=== PATIENT | male | born 1950 | race Caucasian/White ===

== ENCOUNTER 2020-08-20 20:13 | Inpatient (IN) | payer MEDICARE, MEDICAID ==
[~2020-08-20] VITALS: Ht 170.2 cm; Wt 55.3 kg
--- NOTE | 2020-08-20 21:30 | NUR ---
Home: [id number] and Cell: [id number]. 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 Pt's also notified nurse of full bottom dentures. also stated that pt is RAMPART and hearing aides have been left at home.
[2020-08-20 22:11] LABS: BASOPHILS # (AUTO) 0.1 X10'3 (0-0.2); BASOPHILS % (AUTO) 0.5 % (0-1); EOSINOPHILS % (AUTO) 0.5 % (0-6); HEMOGLOBIN 14.5 g/dl (14.0-17.9); LYMPHOCYTES # (AUTO) 1.3 X10'3 (1.1-4.8); LYMPHOCYTES % (AUTO) 13.5 % (21-51); MEAN CORPUSCULAR HEMOGLOBIN 30.3 PG (27.0-31.0); MEAN CORPUSCULAR HGB CONC 33.8 g/dL (33.0-36.5); MEAN CORPUSCULAR VOLUME 89.5 FL (78-98); MEAN PLATELET VOLUME 8.8 FL (7.4-10.4); MONOCYTES # (AUTO) 0.8 X10'3 (0-0.9); MONOCYTES % (AUTO) 7.8 % (2-12); NEUTROPHILS # (AUTO) 7.6 X10'3 (1.8-7.7); NEUTROPHILS % (AUTO) 77.7 % (42-75); PLATELET COUNT 197 X10'3 (140-440); RED BLOOD COUNT 4.81 X10'6 (4.70-6.10); RED CELL DISTRIBUTION WIDTH 14.2 % (11.5-14.5); WHITE BLOOD COUNT 9.8 X10'3 (4.5-11.0)
--- NOTE | 2020-08-20 22:30 | NUR ---
updated on plan of care.
[2020-08-20 22:31] LABS: ALANINE AMINOTRANSFERASE 31 U/L (12-78); ALBUMIN 3.5 G/DL (3.4-5.0); ALBUMIN/GLOBULIN RATIO 1.2 (1.1-1.5); ALKALINE PHOSPHATASE 104 IU/L (46-116); ANION GAP 7 (8-16); ASPARTATE AMINO TRANSFERASE 23 U/L (10-37); BILIRUBIN,TOTAL 0.8 MG/DL (0.1-1.0); BLOOD UREA NITROGEN 13 MG/DL (7-18); BUN/CREATININE RATIO 18.1 (5.4-32.0); CALCIUM 8.8 MG/DL (8.5-10.1); CHLORIDE 109 MMOL/L (99-107); CREATININE 0.72 MG/DL (0.60-1.10); GLUCOSE 115 MG/DL (70-104); SODIUM 141 MMOL/L (135-145); TOTAL CARBON DIOXIDE 25.3 MMOL/L (24-32); TOTAL PROTEIN 6.5 G/DL (6.4-8.2); eGFR > 90 ML/MIN
[2020-08-20 22:33] LABS: POTASSIUM 4.2 MMOL/L (3.5-5.1)
[2020-08-20] MEDS ORDERED: OLAN15TA20 PO (23:17)
[2020-08-20] MEDS ORDERED: CLON-528 PO (23:17)
[2020-08-20] MEDS ORDERED: SERT-433 PO (23:17)
[2020-08-20] MEDS ORDERED: DONE5TAB7 PO (23:17)
[2020-08-20] MEDS ORDERED: OLAN5TAB26 PO (23:17)
[2020-08-20] MEDS ORDERED: OLANZAPINE 5 MG TABLET PO ONE (23:50)
--- NOTE | 2020-08-21 03:51 | NUR ---
Two staff nurses attempted to place condom cath on pt to collect urine sample. Pt suddenly became very agitated and started yell and twist/turn in bed. Procedure attempt was discontinued. Pt then soon calmed down. Will continue to monitor.
[2020-08-21] MEDS ORDERED: MIDAZolam 1mg/ml 10ml vial IM ONE (04:35)
[2020-08-21] MEDS ORDERED: midazolam 1 mg/ML 2ml injection IM ONE (04:35)
--- NOTE | 2020-08-21 04:44 | NUR ---
Pt was actively attempting to get out of bed. The first attempt nurse and nurse aide were able to redirect pt back to bed without issue. Heated blanket was given as well as additionally blankets. Soon after pt made another active attempt to get out of bed. Nurse rushed to bedside to prevent pt from getting out of bed. Pt then became combative with nurse with hitting and shoving. Nurse tech also came to bedside. Pt successfully got of bed and attempted to walk towards exit while still being combative. Security was called. Once security responded, pt was able to redirected back into bed though still agitated. MD was made aware of current status and ONE time dose of Versed has been ordered and administered. Pt now calmly resting in bed. Will continue to closely monitor.
--- NOTE | 2020-08-21 07:00 | NUR ---
Pt up to use the restroom. pt provided urine sample and had a bm. Pt ambulated independently with an unsteady gate. Pt required standby assistance to bathroom.
[2020-08-21 07:18] LABS: CLARITY,URINE CLOUDY (Clear); COLOR,URINE YELLOW (Yellow); GLUCOSE, URINE NEGATIVE (Neg); KETONES,URINE NEGATIVE (Neg); LEUKOCYTE ESTERASE ,URINE MODERATE (Neg); NITRITES, URINE NEGATIVE (Neg); OCCULT BLOOD,URINE LARGE (Neg); PROTEIN,URINE 30 mg/dl (Neg); UROBILINOGEN,URINE 0.2 E.U/dL (0.2-1.0)
[2020-08-21 07:19] LABS: URINE AMPHETAMINE SCREEN NEGATIVE (Neg); URINE BARBITUATE SCREEN NEGATIVE (Neg); URINE BENZODIAZEPINES SCREEN POSITIVE (Neg); URINE CANNABINOID SCREEN NEGATIVE (Neg); URINE COCAINE SCREEN NEGATIVE (Neg); URINE METHADONE SCREEN NEGATIVE (Neg); URINE OPIATE SCREEN NEGATIVE (Neg); URINE PHENCYCLIDINE SCREEN NEGATIVE (Neg)
[2020-08-21 07:24] LABS: UA COLLECTION TYPE CLN CATCH MIDSTREAM
[2020-08-21 07:25] LABS: AMORPHOUS URATES 3+; BACTERIA,URINE FEW /HPF (Neg); MUCUS STRANDS FEW /LPF (Neg); RBC,URINE TNTC /HPF (0-2); SQUAMOUS EPITHELIAL CELL,UR FEW /LPF (FEW); WBC,URINE TNTC /HPF (0-4)
[2020-08-21] MEDS: OLANZAPINE 5 MG TABLET PO SCH ×2 (07:46→21:58)
[2020-08-21] MEDS: clonazePAM 0.5mg tablet PO PRN (07:46)
[2020-08-21] MEDS: donepezil 5mg tablet PO SCH (07:46)
[2020-08-21] MEDS: sertraline 50mg tablet PO SCH (07:46)
--- NOTE | 2020-08-21 07:57 | NUR ---
pt off unit, taken to ct
--- NOTE | 2020-08-21 08:27 | NUR ---
Patricia robledo in [facility] - 08/21/20 at 0828 by TONJA pt is eating breakfast independento
--- NOTE | 2020-08-21 08:28 | NUR ---
pt is eating breakfast independently. Pt appears to be in no distress
[2020-08-21] MEDS ORDERED: CefTRIAXone/D5W-Rocephin 1gm 50 ML IV ONE (09:30)
--- NOTE | 2020-08-21 11:52 | NUR ---
Pt was given additional water and snacks, linen change after cleaning up the pt. pt was incontinent of urine. Pt settled in bed and is now sleeping.
--- NOTE | 2020-08-21 13:02 | NUR ---
Pt is resting in bed, no s/s of distress noted.
--- NOTE | 2020-08-21 15:51 | NUR ---
pt continues to rest, no s/s of distress noted. r/r unlabored
[2020-08-21] MEDS: cephalexin 250mg capsule PO SCH (22:00)
[2020-08-21] MEDS: lactobacillus rhamnosus 10,000 MMU CELLS/CAPSULE PO SCH (22:00)
[2020-08-22] MEDS: cephalexin 250mg capsule PO SCH ×2 (07:38→20:08)
[2020-08-22] MEDS: donepezil 5mg tablet PO SCH (07:39)
[2020-08-22] MEDS: sertraline 50mg tablet PO SCH (07:39)
[2020-08-22] MEDS: lactobacillus rhamnosus 10,000 MMU CELLS/CAPSULE PO SCH ×2 (07:39→20:08)
[2020-08-22] MEDS: OLANZAPINE 5 MG TABLET PO SCH ×2 (07:39→20:08)
[2020-08-22] MEDS: clonazePAM 0.5mg tablet PO PRN (08:48)
[2020-08-22] MEDS ORDERED: LORazepam 2 mg/ml vial IM ONE (08:55)
[2020-08-22] MEDS ORDERED: diphenhydrAMINE 50 mg/ml inj IM ONE (08:55)
[2020-08-22] MEDS ORDERED: haloperidol lactate 5mg/ml inj IM ONE ×2 (09:45→16:05)
--- NOTE | 2020-08-22 10:32 | NUR ---
Assumed care of patient at 0945 from Brendon CLAROS. Per RN, Pt has been aggitated and walked over to another patients room and started yelling and pointing fingers at them. Pt was given ativan and benedryl. Pt continues to be aggitated and continues to try to get out of bed. Order for Haldol was obtained and given. Pt is constantly moving around in bed and making random noises. Pt unable to communicate effectively with staff due to his dementia and huntingtons. Continue to monitor.
--- NOTE | 2020-08-22 12:36 | NUR ---
Spoke with case mgmt, they will call to provide resources to family.
[2020-08-22] MEDS ORDERED: acetaminophen 325mg tablet PO PRN (16:25)
[2020-08-22] MEDS ORDERED: ondansetron/PF 4mg/2ml inj IV PRN (16:25)
[2020-08-22] MEDS ORDERED: magnesium hydroxide 30ml (MOM) UD suspension PO PRN (16:25)
[2020-08-22] MEDS ORDERED: mag hydrox/Alum hydrox/simeth 30ml oral suspension PO PRN (16:25)
[2020-08-22] MEDS ORDERED: morphine 2 MG/ML inj. syringe IV PRN ×2 (16:25)
[2020-08-22] MEDS: normal saline 1000ml 1,000 ML IV SCH (19:00)
[2020-08-22] MEDS: CefTRIAXone/D5W-Rocephin 1gm 50 ML IV SCH (19:30)
--- NOTE | 2020-08-22 20:52 | NUR ---
PT SEEMS TO BE SLEEPING IN BED AT THIS MOMENT
--- NOTE | 2020-08-22 21:18 | NUR ---
BED ALARM PLACED ON PATIENT
[2020-08-23] MEDS: normal saline 1000ml 1,000 ML IV SCH ×2 (04:04→12:25)
--- NOTE | 2020-08-23 06:29 | NUR ---
PT WOKE UP AND GOT UP FROM BED WALKING TOWARDS THE DOOR AND PULLED HIS IV TUBING AND STARTED THE NEW IV FOR THE PT BY SUPERVISOR INSPECTION AND TESTINGHYACINTH YAO ,PT DIRECTED TO GO BACK TO BED DIAPER CHANGED ,BED ALARM STARTED.WILL CONT TO MONITOR.
[2020-08-23] MEDS: OLANZAPINE 5 MG TABLET PO SCH ×2 (08:33→20:18)
[2020-08-23] MEDS: sertraline 50mg tablet PO SCH (08:33)
[2020-08-23] MEDS: cephalexin 250mg capsule PO SCH ×2 (08:33→20:18)
[2020-08-23] MEDS: donepezil 5mg tablet PO SCH (08:33)
[2020-08-23] MEDS: lactobacillus rhamnosus 10,000 MMU CELLS/CAPSULE PO SCH ×2 (08:33→20:18)
[2020-08-23] MEDS: enoxaparin 40mg/0.4ml syringe SUBCUT SCH (08:33)
[2020-08-23] MEDS: CefTRIAXone/D5W-Rocephin 1gm 50 ML IV SCH (08:46)
[2020-08-23 08:52] LABS: BASOPHILS % (AUTO) 0.1 % (0-1); EOSINOPHILS % (AUTO) 0.5 % (0-6); HEMATOCRIT 45.5 % (42.0-52.0); HEMOGLOBIN 15.4 g/dl (14.0-17.9); LYMPHOCYTES % (AUTO) 11.5 % (21-51); MEAN CORPUSCULAR HEMOGLOBIN 30.6 PG (27.0-31.0); MEAN CORPUSCULAR HGB CONC 33.9 g/dL (33.0-36.5); MEAN CORPUSCULAR VOLUME 90.3 FL (78-98); MEAN PLATELET VOLUME 8.4 FL (7.4-10.4); MONOCYTES # (AUTO) 0.7 X10'3 (0-0.9); NEUTROPHILS # (AUTO) 6.7 X10'3 (1.8-7.7); NEUTROPHILS % (AUTO) 79.9 % (42-75); PLATELET COUNT 208 X10'3 (140-440); RED BLOOD COUNT 5.04 X10'6 (4.70-6.10); RED CELL DISTRIBUTION WIDTH 14.3 % (11.5-14.5); WHITE BLOOD COUNT 8.4 X10'3 (4.5-11.0)
[2020-08-23 09:02] LABS: ALANINE AMINOTRANSFERASE 31 U/L (12-78); ALBUMIN 3.5 G/DL (3.4-5.0); ALBUMIN/GLOBULIN RATIO 1.2 (1.1-1.5); ALKALINE PHOSPHATASE 97 IU/L (46-116); ANION GAP 8 (8-16); ASPARTATE AMINO TRANSFERASE 29 U/L (10-37); BILIRUBIN,TOTAL 0.8 MG/DL (0.1-1.0); BLOOD UREA NITROGEN 12 MG/DL (7-18); BUN/CREATININE RATIO 16.4 (5.4-32.0); CALCIUM 8.5 MG/DL (8.5-10.1); CHLORIDE 111 MMOL/L (99-107); CREATININE 0.73 MG/DL (0.60-1.10); GLUCOSE 90 MG/DL (70-104); POTASSIUM 4.5 MMOL/L (3.5-5.1); SODIUM 144 MMOL/L (135-145); TOTAL CARBON DIOXIDE 25.5 MMOL/L (24-32); TOTAL PROTEIN 6.4 G/DL (6.4-8.2); eGFR > 90 ML/MIN
--- NOTE | 2020-08-23 10:00 | NUR ---
INFORMED CHARGE NURSE SANDRO THAT WE NEED SITTER FOR THE PT PT WANDER AROUND IN THE HALLWAY.
--- NOTE | 2020-08-23 10:56 | NUR ---
REEMA MUNOZ SITTER DOING ONE TO ONE ON PT HELPED CHANGED THE PT ,PT HAD BM TWICE SINCE AM .PT IS DIRECTABLE BUT CONFUSED,LEAVE THE BED AND WANDER IN HALLWAY.
[2020-08-23] MEDS ORDERED: FLU VACC QS2020-21(6MOS UP)/PF 60 MCG/0.5 ML SYRINGE IMVAC ONE (11:10)
[2020-08-23] MEDS ORDERED: pneumococcal 23-VAL P-sac vacc 25 mcg/0.5ml vial IMVAC ONE (11:10)
--- NOTE | 2020-08-23 11:33 | NUR ---
spoke to valerie for giving report but nurse is not available at this time.
--- NOTE | 2020-08-23 12:02 | NUR ---
Received patient report via phone from Gael Hanley in [place]. She states patient has a sitter due to the fact patient gets up and wanders and pulled his IV out this morning. She will be calling me back to make sure that they will be sending up a sitter with patient.
--- NOTE | 2020-08-23 13:30 | NUR ---
Paged speach therapy to evaluate patient
--- NOTE | 2020-08-23 14:20 | NUR ---
Spoke with Vicky who states patient has not had his flu or pneumonia vaccine and she would like him to have them while he is here.
[2020-08-23] MEDS ORDERED: SULF1TAB49 PO (14:49)
[2020-08-23 14:50] VITALS: BP 144/47
--- NOTE | 2020-08-23 15:48 | NUR ---
Called and left message for regarding discharge on home number and cell phone of [phone]
--- NOTE | 2020-08-23 16:11 | NUR ---
Patients called back stated she can not come and case picker patient states she needs him to be placed. I advised patient the doctor has written a discharge and she would have to contact Medicare and appeal his discharge and if they deemed he was to be discharged she would be responsible for his stay. Patients wanted Raya / licensed social worker to call [facility] and fax information on patient so they could review his case on Sunday. I did advise Vicky the that since the patient came to the floor he has been in bed not wandering and ate his lunch and allowed me to give him both of his vaccinations. I handed the phone call over Loretta who spoke with the and is refusing to come and get patient. Raya with licensed social worker will call patients and try and give her the phone number for medicare appeals. Dr Dunham has been paged.
--- NOTE | 2020-08-23 16:24 | NUR ---
Dr Dunham aware patients is not coming to pick patient up.
--- NOTE | 2020-08-23 18:46 | NUR ---
Patient in room [facility]. I have received report from Vicky CLAROS and had the opportunity to ask questions and assume patient care.
--- NOTE | 2020-08-23 18:50 | NUR ---
Problems reprioritized. Patient report given, questions answered & plan of care reviewed with Jessica CLAROS.
[2020-08-23 19:49] VITALS: BP 159/51
[2020-08-23 19:50] VITALS: BP_SYST 109; BP_SYST 159; BP_DIAS 51; BP_DIAS 58
[2020-08-24 00:03] VITALS: BP 98/49
[2020-08-24] MEDS: normal saline 1000ml 1,000 ML IV SCH ×2 (00:23→08:25)
--- NOTE | 2020-08-24 06:49 | NUR ---
Problems reprioritized. Patient report given, questions answered & plan of care reviewed with Ana CLAROS.
--- NOTE | 2020-08-24 06:49 | NUR ---
Patient in room [facility]. I have received report from Adriana CLAROS and had the opportunity to ask questions and assume patient care.
[2020-08-24 07:13] LABS: BASOPHILS % (AUTO) 0.3 % (0-1); EOSINOPHILS # (AUTO) 0.1 X10'3 (0-0.9); EOSINOPHILS % (AUTO) 0.8 % (0-6); HEMATOCRIT 41.7 % (42.0-52.0); HEMOGLOBIN 14.1 g/dl (14.0-17.9); LYMPHOCYTES # (AUTO) 0.9 X10'3 (1.1-4.8); LYMPHOCYTES % (AUTO) 11.4 % (21-51); MEAN CORPUSCULAR HEMOGLOBIN 30.5 PG (27.0-31.0); MEAN CORPUSCULAR HGB CONC 33.9 g/dL (33.0-36.5); MEAN PLATELET VOLUME 9.4 FL (7.4-10.4); MONOCYTES # (AUTO) 0.8 X10'3 (0-0.9); NEUTROPHILS # (AUTO) 6.4 X10'3 (1.8-7.7); NEUTROPHILS % (AUTO) 77.5 % (42-75); PLATELET COUNT 196 X10'3 (140-440); RED BLOOD COUNT 4.64 X10'6 (4.70-6.10); WHITE BLOOD COUNT 8.3 X10'3 (4.5-11.0)
[2020-08-24 07:33] LABS: ALANINE AMINOTRANSFERASE 33 U/L (12-78); ALBUMIN 3.2 G/DL (3.4-5.0); ALBUMIN/GLOBULIN RATIO 1.1 (1.1-1.5); ALKALINE PHOSPHATASE 91 IU/L (46-116); ANION GAP 7 (8-16); ASPARTATE AMINO TRANSFERASE 25 U/L (10-37); BILIRUBIN,TOTAL 0.7 MG/DL (0.1-1.0); BLOOD UREA NITROGEN 11 MG/DL (7-18); BUN/CREATININE RATIO 16.7 (5.4-32.0); CALCIUM 8.4 MG/DL (8.5-10.1); CHLORIDE 112 MMOL/L (99-107); CREATININE 0.66 MG/DL (0.60-1.10); GLUCOSE 89 MG/DL (70-104); POTASSIUM 4.3 MMOL/L (3.5-5.1); SODIUM 144 MMOL/L (135-145); TOTAL CARBON DIOXIDE 25.5 MMOL/L (24-32); TOTAL PROTEIN 6.1 G/DL (6.4-8.2); eGFR > 90 ML/MIN
[2020-08-24 08:00] VITALS: BP 133/47
[2020-08-24] MEDS: lactobacillus rhamnosus 10,000 MMU CELLS/CAPSULE PO SCH ×2 (08:55→19:43)
[2020-08-24] MEDS: OLANZAPINE 5 MG TABLET PO SCH ×2 (08:55→19:43)
[2020-08-24] MEDS: cephalexin 250mg capsule PO SCH (08:55)
[2020-08-24] MEDS: CefTRIAXone/D5W-Rocephin 1gm 50 ML IV SCH (08:55)
[2020-08-24] MEDS: donepezil 5mg tablet PO SCH (08:55)
[2020-08-24] MEDS: sertraline 50mg tablet PO SCH (08:55)
[2020-08-24] MEDS: enoxaparin 40mg/0.4ml syringe SUBCUT SCH (08:56)
[2020-08-24 11:00] VITALS: BP 128/44
--- NOTE | 2020-08-24 18:36 | NUR ---
Patient in room [facility]. I have received report from Ana CLAROS and had the opportunity to ask questions and assume patient care.
--- NOTE | 2020-08-24 18:38 | NUR ---
Problems reprioritized. Patient report given, questions answered & plan of care reviewed with LUCILLE CLAROS.
[2020-08-24 20:00] VITALS: BP 142/58
--- NOTE | 2020-08-25 06:45 | NUR ---
Patient in room [facility]. I have received report from Adriana CLAROS and had the opportunity to ask questions and assume patient care.
--- NOTE | 2020-08-25 06:49 | NUR ---
Problems reprioritized. Patient report given, questions answered & plan of care reviewed with Heather CLAROS.
[2020-08-25 07:32] LABS: BASOPHILS % (AUTO) 0.4 % (0-1); EOSINOPHILS # (AUTO) 0.1 X10'3 (0-0.9); EOSINOPHILS % (AUTO) 1.3 % (0-6); HEMATOCRIT 41.6 % (42.0-52.0); HEMOGLOBIN 14.1 g/dl (14.0-17.9); LYMPHOCYTES % (AUTO) 14.3 % (21-51); MEAN CORPUSCULAR HEMOGLOBIN 30.4 PG (27.0-31.0); MEAN CORPUSCULAR VOLUME 89.4 FL (78-98); MEAN PLATELET VOLUME 8.9 FL (7.4-10.4); MONOCYTES # (AUTO) 0.7 X10'3 (0-0.9); NEUTROPHILS # (AUTO) 5.4 X10'3 (1.8-7.7); PLATELET COUNT 198 X10'3 (140-440); RED BLOOD COUNT 4.65 X10'6 (4.70-6.10); RED CELL DISTRIBUTION WIDTH 14.3 % (11.5-14.5); WHITE BLOOD COUNT 7.2 X10'3 (4.5-11.0)
[2020-08-25 08:00] VITALS: BP 111/49
[2020-08-25 08:05] LABS: ALANINE AMINOTRANSFERASE 30 U/L (12-78); ALBUMIN 3.2 G/DL (3.4-5.0); ALBUMIN/GLOBULIN RATIO 1.1 (1.1-1.5); ALKALINE PHOSPHATASE 91 IU/L (46-116); ANION GAP 9 (8-16); ASPARTATE AMINO TRANSFERASE 25 U/L (10-37); BILIRUBIN,TOTAL 0.9 MG/DL (0.1-1.0); BLOOD UREA NITROGEN 11 MG/DL (7-18); BUN/CREATININE RATIO 18.3 (5.4-32.0); CALCIUM 8.7 MG/DL (8.5-10.1); CHLORIDE 109 MMOL/L (99-107); GLUCOSE 90 MG/DL (70-104); POTASSIUM 4.2 MMOL/L (3.5-5.1); SODIUM 143 MMOL/L (135-145); TOTAL CARBON DIOXIDE 24.9 MMOL/L (24-32); TOTAL PROTEIN 6.2 G/DL (6.4-8.2); eGFR > 90 ML/MIN
[2020-08-25] MEDS: donepezil 5mg tablet PO SCH (08:22)
[2020-08-25] MEDS: OLANZAPINE 5 MG TABLET PO SCH ×2 (08:22→21:03)
[2020-08-25] MEDS: lactobacillus rhamnosus 10,000 MMU CELLS/CAPSULE PO SCH ×2 (08:22→21:03)
[2020-08-25] MEDS: sertraline 50mg tablet PO SCH (08:22)
[2020-08-25] MEDS: CefTRIAXone/D5W-Rocephin 1gm 50 ML IV SCH (08:23)
[2020-08-25] MEDS: enoxaparin 40mg/0.4ml syringe SUBCUT SCH (08:25)
[2020-08-25 12:00] VITALS: BP 148/57
--- NOTE | 2020-08-25 17:31 | NUR ---
spoke with pt's Vicky per phone call, update given.
--- NOTE | 2020-08-25 18:49 | NUR ---
Problems reprioritized. Patient report given, questions answered & plan of care reviewed with Pat RN.
[2020-08-25 19:30] VITALS: BP 134/50
[2020-08-25 21:00] VITALS: BP 134/50
[2020-08-26] VITALS: BP 106/50
[2020-08-26] MEDS: sertraline 50mg tablet PO SCH (08:19)
[2020-08-26] MEDS: OLANZAPINE 5 MG TABLET PO SCH ×2 (08:19→21:04)
[2020-08-26] MEDS: lactobacillus rhamnosus 10,000 MMU CELLS/CAPSULE PO SCH ×2 (08:19→21:04)
[2020-08-26] MEDS: CefTRIAXone/D5W-Rocephin 1gm 50 ML IV SCH (08:19)
[2020-08-26] MEDS: donepezil 5mg tablet PO SCH (08:19)
[2020-08-26] MEDS: enoxaparin 40mg/0.4ml syringe SUBCUT SCH (08:20)
[2020-08-26 09:17] LABS: BASOPHILS % (AUTO) 0.4 % (0-1); EOSINOPHILS % (AUTO) 0.4 % (0-6); HEMATOCRIT 45.9 % (42.0-52.0); HEMOGLOBIN 15.3 g/dl (14.0-17.9); LYMPHOCYTES # (AUTO) 0.7 X10'3 (1.1-4.8); LYMPHOCYTES % (AUTO) 9.3 % (21-51); MEAN CORPUSCULAR HEMOGLOBIN 30.2 PG (27.0-31.0); MEAN CORPUSCULAR HGB CONC 33.4 g/dL (33.0-36.5); MEAN CORPUSCULAR VOLUME 90.6 FL (78-98); MEAN PLATELET VOLUME 9.6 FL (7.4-10.4); MONOCYTES # (AUTO) 0.6 X10'3 (0-0.9); MONOCYTES % (AUTO) 7.5 % (2-12); NEUTROPHILS # (AUTO) 6.6 X10'3 (1.8-7.7); NEUTROPHILS % (AUTO) 82.4 % (42-75); PLATELET COUNT 207 X10'3 (140-440); RED BLOOD COUNT 5.07 X10'6 (4.70-6.10); RED CELL DISTRIBUTION WIDTH 13.9 % (11.5-14.5)
[2020-08-26 09:21] LABS: ALANINE AMINOTRANSFERASE 35 U/L (12-78); ALBUMIN 3.7 G/DL (3.4-5.0); ALBUMIN/GLOBULIN RATIO 1.2 (1.1-1.5); ALKALINE PHOSPHATASE 104 IU/L (46-116); ANION GAP 10 (8-16); ASPARTATE AMINO TRANSFERASE 25 U/L (10-37); BILIRUBIN,TOTAL 1.1 MG/DL (0.1-1.0); BLOOD UREA NITROGEN 15 MG/DL (7-18); BUN/CREATININE RATIO 20.8 (5.4-32.0); CALCIUM 9.1 MG/DL (8.5-10.1); CHLORIDE 108 MMOL/L (99-107); CREATININE 0.72 MG/DL (0.60-1.10); GLUCOSE 96 MG/DL (70-104); POTASSIUM 4.4 MMOL/L (3.5-5.1); SODIUM 144 MMOL/L (135-145); TOTAL CARBON DIOXIDE 26.4 MMOL/L (24-32); TOTAL PROTEIN 6.9 G/DL (6.4-8.2); eGFR > 90 ML/MIN
[2020-08-26 11:00] VITALS: BP 122/71
--- NOTE | 2020-08-26 11:20 | NUR ---
Initial: Pt on a social admit with reported behavioral changes from SO per H&P. Pt confused and A/O x 1 with hx [place]'s disease. Pt s/p BSS with ST recs to continue pureed diet with nectar thick liquids. Pt needs supervision at meals due to impulsivity per ST note. Pt documented with 100% PO intake meeting estimated nutrient needs. D/w dietary to send double protein TID for satiety. LBM 08/25. Will continue to follow and monitor need for further nutrition intervention. Recommendations: 1) Continue pureed food with NTL per ST recs 2) Double eggs q breakfast, double meat BIDLD for satiety 3) Bowel care per rx 4) Scaled weights per rx Addendum: 08/26/20 at [address] Amended: Links added.
--- NOTE | 2020-08-26 14:36 | NUR ---
COVID test completed, patient tolerated well. Test taken to lab.
--- NOTE | 2020-08-26 18:19 | NUR ---
Problems reprioritized. Patient report given, questions answered & plan of care reviewed with Rajeev RN.
[2020-08-26 20:00] VITALS: BP 129/56
[2020-08-26] MEDS: clonazePAM 0.5mg tablet PO PRN (21:04)
[2020-08-26] MEDS: acetaminophen 325mg tablet PO PRN (21:05)
[2020-08-27 04:38] VITALS: BP 101/44
--- NOTE | 2020-08-27 06:06 | NUR ---
REPORT GIVEN TO ARTHUR
--- NOTE | 2020-08-27 06:24 | NUR ---
REPORT GIVEN TO RON CLAROS, PLAN REVIEWED AND REPRIORITIZED.QUESTIONS ANSWERED. NO DISTRESS AT THIS TIMES
[2020-08-27 07:25] LABS: BASOPHILS % (AUTO) 0.5 % (0-1); EOSINOPHILS # (AUTO) 0.1 X10'3 (0-0.9); HEMATOCRIT 44.9 % (42.0-52.0); HEMOGLOBIN 15.2 g/dl (14.0-17.9); LYMPHOCYTES # (AUTO) 1.1 X10'3 (1.1-4.8); LYMPHOCYTES % (AUTO) 17.8 % (21-51); MEAN CORPUSCULAR HEMOGLOBIN 30.3 PG (27.0-31.0); MEAN CORPUSCULAR HGB CONC 33.9 g/dL (33.0-36.5); MEAN CORPUSCULAR VOLUME 89.3 FL (78-98); MEAN PLATELET VOLUME 9.6 FL (7.4-10.4); MONOCYTES # (AUTO) 0.8 X10'3 (0-0.9); NEUTROPHILS # (AUTO) 4.3 X10'3 (1.8-7.7); NEUTROPHILS % (AUTO) 67.7 % (42-75); PLATELET COUNT 201 X10'3 (140-440); RED BLOOD COUNT 5.03 X10'6 (4.70-6.10); RED CELL DISTRIBUTION WIDTH 14.4 % (11.5-14.5); WHITE BLOOD COUNT 6.4 X10'3 (4.5-11.0)
[2020-08-27 07:38] LABS: ALANINE AMINOTRANSFERASE 39 U/L (12-78); ALBUMIN 3.5 G/DL (3.4-5.0); ALBUMIN/GLOBULIN RATIO 1.1 (1.1-1.5); ALKALINE PHOSPHATASE 99 IU/L (46-116); ANION GAP 7 (8-16); ASPARTATE AMINO TRANSFERASE 23 U/L (10-37); BILIRUBIN,TOTAL 0.7 MG/DL (0.1-1.0); BLOOD UREA NITROGEN 18 MG/DL (7-18); BUN/CREATININE RATIO 23.7 (5.4-32.0); CALCIUM 8.6 MG/DL (8.5-10.1); CHLORIDE 110 MMOL/L (99-107); CREATININE 0.76 MG/DL (0.60-1.10); GLUCOSE 91 MG/DL (70-104); POTASSIUM 4.2 MMOL/L (3.5-5.1); SODIUM 145 MMOL/L (135-145); TOTAL CARBON DIOXIDE 28.5 MMOL/L (24-32); TOTAL PROTEIN 6.7 G/DL (6.4-8.2); eGFR > 90 ML/MIN
[2020-08-27 08:00] VITALS: BP 114/69
[2020-08-27] MEDS: sertraline 50mg tablet PO SCH (08:07)
[2020-08-27] MEDS: CefTRIAXone/D5W-Rocephin 1gm 50 ML IV SCH (08:07)
[2020-08-27] MEDS: OLANZAPINE 5 MG TABLET PO SCH ×2 (08:07→19:49)
[2020-08-27] MEDS: lactobacillus rhamnosus 10,000 MMU CELLS/CAPSULE PO SCH ×2 (08:08→19:49)
[2020-08-27] MEDS: enoxaparin 40mg/0.4ml syringe SUBCUT SCH (08:08)
[2020-08-27] MEDS: donepezil 5mg tablet PO SCH (08:08)
[2020-08-27] MEDS: clonazePAM 0.5mg tablet PO PRN (09:30)
--- NOTE | 2020-08-27 15:21 | NUR ---
Patient walked with PT, x2 assist. Patient tolerated well. Patient resting in bed watching TV.
--- NOTE | 2020-08-27 18:12 | NUR ---
Problems reprioritized. Patient report given, questions answered & plan of care reviewed with Dhara CLAROS.
--- NOTE | 2020-08-27 18:34 | NUR ---
Patient in room [facility]. I have received report from RON CLAROS and had the opportunity to ask questions and assume patient care. Addendum: 08/27/20 at 1835 by Dhara Pelaez RN Amended: Links added.
--- NOTE | 2020-08-27 19:15 | NUR ---
pt awake skin care done and positioned to comfort.
--- NOTE | 2020-08-27 19:50 | NUR ---
pt took po medications with yogurt and given nectar thickened juice.
[2020-08-27 20:00] VITALS: BP 125/57
--- NOTE | 2020-08-27 21:34 | NUR ---
resting eyes closed without changes at this time.
--- NOTE | 2020-08-27 22:26 | NUR ---
resting appears comfortable at this time.
[2020-08-28] VITALS: BP 110/40
--- NOTE | 2020-08-28 00:36 | NUR ---
resting without changes.
--- NOTE | 2020-08-28 02:35 | NUR ---
resting without changes.
--- NOTE | 2020-08-28 06:19 | NUR ---
Problems reprioritized. Patient report given, questions answered & plan of care reviewed with JACQUES CLAROS. Addendum: 08/28/20 at 0619 by Dhara Pelaez RN Amended: Links added.
--- NOTE | 2020-08-28 06:33 | NUR ---
Patient in room [facility]. I have received report from Dhara CLAROS and had the opportunity to ask questions and assume patient care.
[2020-08-28 07:00] VITALS: BP 131/57
[2020-08-28] MEDS: sertraline 50mg tablet PO SCH (07:59)
[2020-08-28] MEDS: OLANZAPINE 5 MG TABLET PO SCH ×2 (08:00→19:34)
[2020-08-28] MEDS: clonazePAM 0.5mg tablet PO PRN (08:00)
[2020-08-28] MEDS: donepezil 5mg tablet PO SCH (08:00)
[2020-08-28] MEDS: lactobacillus rhamnosus 10,000 MMU CELLS/CAPSULE PO SCH ×2 (08:00→19:33)
[2020-08-28] MEDS: CefTRIAXone/D5W-Rocephin 1gm 50 ML IV SCH (08:01)
[2020-08-28] MEDS: enoxaparin 40mg/0.4ml syringe SUBCUT SCH (08:02)
[2020-08-28 11:00] VITALS: BP 123/54
[2020-08-28 18:00] VITALS: BP 111/49
--- NOTE | 2020-08-28 18:30 | NUR ---
Patient in room [facility]. I have received report from JACQUES CLAROS and had the opportunity to ask questions and assume patient care. Addendum: 08/28/20 at 1830 by Dhara Pelaez RN Amended: Links added.
--- NOTE | 2020-08-28 18:32 | NUR ---
Problems reprioritized. Patient report given, questions answered & plan of care reviewed with DELIO CLAROS.
--- NOTE | 2020-08-28 19:40 | NUR ---
repositioned in bed hs care done tolerated well. no complaints.
--- NOTE | 2020-08-28 21:30 | NUR ---
pt resting eyes closed without changes bed alarm on as pt impulsive. prior to dozing off was enjoying watching and low pitched laugh at [employer].
--- NOTE | 2020-08-28 23:35 | NUR ---
pt turning self in bed resting without changes. cleaned earlier for inc of urine.
[2020-08-29] VITALS: BP 115/49
--- NOTE | 2020-08-29 01:23 | NUR ---
pt resting without changes appears comfortable.
--- NOTE | 2020-08-29 03:18 | NUR ---
inc of urine skin care done and positioned to comfort.
--- NOTE | 2020-08-29 04:22 | NUR ---
pt was laying awake and calm with tv on then had a moment of crying out appeared confused and scared. warm blanket put on him. told him it's ok he calmed down and was quiet and then started watching the tv.
--- NOTE | 2020-08-29 06:19 | NUR ---
Problems reprioritized. Patient report given, questions answered & plan of care reviewed with JACQUES CLAROS. Addendum: 08/29/20 at 0619 by Dhara Pelaez RN Amended: Links added.
--- NOTE | 2020-08-29 06:46 | NUR ---
Patient in room [facility]. I have received report from Dhara CLAROS and had the opportunity to ask questions and assume patient care.
[2020-08-29] MEDS: OLANZAPINE 5 MG TABLET PO SCH ×2 (08:31→20:31)
[2020-08-29] MEDS: lactobacillus rhamnosus 10,000 MMU CELLS/CAPSULE PO SCH ×2 (08:31→20:30)
[2020-08-29] MEDS: sertraline 50mg tablet PO SCH (08:31)
[2020-08-29] MEDS: donepezil 5mg tablet PO SCH (08:31)
[2020-08-29] MEDS: enoxaparin 40mg/0.4ml syringe SUBCUT SCH (08:32)
[2020-08-29 08:57] VITALS: BP 131/60
[2020-08-29 11:51] VITALS: BP 119/58
--- NOTE | 2020-08-29 18:43 | NUR ---
Problems reprioritized. Patient report given, questions answered & plan of care reviewed with ERIC CLAROS.
--- NOTE | 2020-08-29 18:48 | NUR ---
I have received report from Michelle CLAROS and had the opportunity to ask questions and assume patient care. Addendum: 08/29/20 at 1849 by Jessica Mtz RN I have received report from Prasanna CLAROS and had the opportunity to ask questions and assume patient care.
[2020-08-29 19:00] VITALS: BP 131/59
[2020-08-30] VITALS: BP 125/53
--- NOTE | 2020-08-30 06:17 | NUR ---
Problems reprioritized. Patient report given, questions answered & plan of care reviewed with Prasanna RN.
--- NOTE | 2020-08-30 06:50 | NUR ---
Patient in room [facility]. I have received report from Jessica CLAROS and had the opportunity to ask questions and assume patient care.
[2020-08-30 07:32] VITALS: BP 138/64
[2020-08-30] MEDS: lactobacillus rhamnosus 10,000 MMU CELLS/CAPSULE PO SCH ×2 (08:18→19:59)
[2020-08-30] MEDS: sertraline 50mg tablet PO SCH (08:18)
[2020-08-30] MEDS: donepezil 5mg tablet PO SCH (08:18)
[2020-08-30] MEDS: OLANZAPINE 5 MG TABLET PO SCH ×2 (08:18→20:00)
[2020-08-30] MEDS: enoxaparin 40mg/0.4ml syringe SUBCUT SCH (08:19)
[2020-08-30 10:27] LABS: BASOPHILS % (AUTO) 0.3 % (0-1); EOSINOPHILS % (AUTO) 0.2 % (0-6); HEMATOCRIT 46.8 % (42.0-52.0); HEMOGLOBIN 15.7 g/dl (14.0-17.9); LYMPHOCYTES # (AUTO) 0.5 X10'3 (1.1-4.8); LYMPHOCYTES % (AUTO) 11.3 % (21-51); MEAN CORPUSCULAR HEMOGLOBIN 30.2 PG (27.0-31.0); MEAN CORPUSCULAR HGB CONC 33.6 g/dL (33.0-36.5); MEAN CORPUSCULAR VOLUME 89.7 FL (78-98); MONOCYTES # (AUTO) 1.3 X10'3 (0-0.9); NEUTROPHILS # (AUTO) 2.9 X10'3 (1.8-7.7); NEUTROPHILS % (AUTO) 61.2 % (42-75); PLATELET COUNT 169 X10'3 (140-440); RED BLOOD COUNT 5.22 X10'6 (4.70-6.10); RED CELL DISTRIBUTION WIDTH 14.2 % (11.5-14.5); WHITE BLOOD COUNT 4.7 X10'3 (4.5-11.0)
[2020-08-30 10:42] LABS: ALANINE AMINOTRANSFERASE 47 U/L (12-78); ALBUMIN 3.7 G/DL (3.4-5.0); ALBUMIN/GLOBULIN RATIO 1.2 (1.1-1.5); ALKALINE PHOSPHATASE 98 IU/L (46-116); ANION GAP 8 (8-16); ASPARTATE AMINO TRANSFERASE 27 U/L (10-37); BILIRUBIN,TOTAL 0.3 MG/DL (0.1-1.0); BLOOD UREA NITROGEN 19 MG/DL (7-18); BUN/CREATININE RATIO 26.4 (5.4-32.0); CALCIUM 8.7 MG/DL (8.5-10.1); CHLORIDE 108 MMOL/L (99-107); CREATININE 0.72 MG/DL (0.60-1.10); GLUCOSE 104 MG/DL (70-104); POTASSIUM 4.3 MMOL/L (3.5-5.1); SODIUM 142 MMOL/L (135-145); TOTAL CARBON DIOXIDE 25.9 MMOL/L (24-32); TOTAL PROTEIN 6.9 G/DL (6.4-8.2); eGFR > 90 ML/MIN
[2020-08-30 11:17] LABS: PLATELET ESTIMATE NORMAL; TOTAL CELLS COUNTED 100
[2020-08-30 12:39] VITALS: BP 123/56
--- NOTE | 2020-08-30 18:12 | NUR ---
Problems reprioritized. Patient report given, questions answered & plan of care reviewed with Jessica CLAROS.
--- NOTE | 2020-08-30 18:36 | NUR ---
I have received report from Prasanna CLAROS and had the opportunity to ask questions and assume patient care.
[2020-08-30 19:00] VITALS: BP 139/58
--- NOTE | 2020-08-30 21:30 | NUR ---
Patient in room [facility]. I have received report from Jessica and had the opportunity to ask questions and assume patient care. Patient currently sleeping with eyes closed and respirations steady.
--- NOTE | 2020-08-30 22:00 | NUR ---
I received report of patient from Jessica CLAROS, reviewed assessment ,and agree with findings.
--- NOTE | 2020-08-30 22:03 | NUR ---
Problems reprioritized. Patient report given, questions answered & plan of care reviewed with Elysia CLAROS.
[2020-08-31] VITALS: BP 120/51
--- NOTE | 2020-08-31 06:45 | NUR ---
Problems reprioritized. Patient report given, questions answered & plan of care reviewed with Mariah CLAROS.
[2020-08-31 07:56] VITALS: BP 146/64
[2020-08-31 11:00] VITALS: BP 120/61
[2020-08-31] MEDS: lactobacillus rhamnosus 10,000 MMU CELLS/CAPSULE PO SCH ×2 (12:02→22:00)
[2020-08-31] MEDS: donepezil 5mg tablet PO SCH (12:03)
[2020-08-31] MEDS: OLANZAPINE 5 MG TABLET PO SCH ×2 (12:03→22:00)
[2020-08-31] MEDS: sertraline 50mg tablet PO SCH (12:03)
[2020-08-31] MEDS: HYDROcodone/acetaminophen 5mg/325mg tablet PO PRN (12:03)
[2020-08-31] MEDS: enoxaparin 40mg/0.4ml syringe SUBCUT SCH (12:04)
[2020-08-31] MEDS: clonazePAM 0.5mg tablet PO PRN (14:50)
--- NOTE | 2020-08-31 18:40 | NUR ---
Patient in room [facility]. I have received report from Mariah CLAROS and had the opportunity to ask questions and assume patient care.
--- NOTE | 2020-08-31 19:42 | NUR ---
GAVE REPORT TO JERRICA CLAROS
[2020-08-31 20:04] VITALS: BP 116/68
[2020-09-01] VITALS: BP 124/56
--- NOTE | 2020-09-01 06:44 | NUR ---
Problems reprioritized. Patient report given, questions answered & plan of care reviewed with Mariah CLAROS.
[2020-09-01 08:00] VITALS: BP 136/61
--- NOTE | 2020-09-01 08:59 | NUR ---
PAGER ID: [phone] MESSAGE: MARYLU STEWART 358b DEFORMED PENIS UNABLE TO LOCATE URETHRA AND OBTAIN UA. BEBE [id number]
[2020-09-01] MEDS: lactobacillus rhamnosus 10,000 MMU CELLS/CAPSULE PO SCH ×2 (09:14→19:57)
[2020-09-01] MEDS: donepezil 5mg tablet PO SCH (09:14)
[2020-09-01] MEDS: sertraline 50mg tablet PO SCH (09:14)
[2020-09-01] MEDS: OLANZAPINE 5 MG TABLET PO SCH ×2 (09:14→21:52)
[2020-09-01] MEDS: enoxaparin 40mg/0.4ml syringe SUBCUT SCH (09:15)
[2020-09-01] MEDS: HYDROcodone/acetaminophen 5mg/325mg tablet PO PRN ×2 (09:15→19:57)
--- NOTE | 2020-09-01 10:26 | NUR ---
Reassessment: Pt continues on pureed diet with nectar thick liquids per ST recs. PO intake declined to 25-50% x three meals on 08/30 however continues with 75-100% PO intake all surrounding meals while receiving double protein TID meeting estimated nutrient needs. LBM 08/29. D/w dietary to send nectar thickened prune juice with next meal to assist with bowel regularity. Pt awaiting placement per physician notes. Will continue to follow and monitor need for further nutrition intervention. Recommendations: 1) Continue pureed food with NTL per ST recs 2) Double eggs q breakfast, double meat BIDLD for satiety 3) Routine bowel care 4) Scaled weights per rx Addendum: 09/01/20 at [address] Amended: Links added.
[2020-09-01] MEDS: clonazePAM 0.5mg tablet PO PRN ×2 (10:46→19:57)
[2020-09-01 11:00] VITALS: BP 104/54
[2020-09-01] MEDS: levoFLOXACIN 500mg tablet PO SCH (12:04)
--- NOTE | 2020-09-01 12:10 | NUR ---
MD AWARE PT. HAS NOT VOIDED YET AT THIS TIME. PT. BLADDER SCANNED ONLY 303ML IN BLADDER. MD STATES TO PUSH ORAL FLUIDS.
--- NOTE | 2020-09-01 14:56 | NUR ---
pT. BLADDER SCANNED > 378ML IN BLADDER. cALLING GENITALIA IS ABNORMAL AND NEED PMX BEFORE CALLING MD.
[2020-09-01 15:05] VITALS: BP 151/88
--- NOTE | 2020-09-01 15:05 | NUR ---
WHILE ATTEMPTING TO PAGE REGAURDING RETENTION, PT GOT OUT OF BED AND STOOD TRYING TO WALK. PRIMARY RN WITNESS PT FALL SHE RAN TO ROOM. BED ALARM WAS ON AND LOUD. PT. FELL HITTING HIS LEFT WRIST AGAINST COMPUTER LIZZY IN ROOM HOWEVER DID NOT HIT HIS HEAD. POST FALL HUDDLE INCLUDED JANE CLAROS PRIMARY RN, RAFAELA REYES, CHARGE LUIGI. LUIGI NOTIFIED DIRECTOR. PRIMARY RN NOTIFIED MD. PT. ASSESSED FOR INJURIES AND ASSIST BACK INTO BED BY 2 STAFF MEMBERS. ONLY INJURY FOUND WAS SMALL ABRASION TO L WRIST. PT. AGITATED MOST LIKELY R/T NOT VOIDING TODAY. FALL CARE PLAN ENTERED. BED ALARM BACK ON BED. PRIMARY RN REMAINS IN ROOM UNTIL CHARGE OR MD DISCUSSES PLAN. VITALS TAKEN AND STABLE AT THIS TIME.
--- NOTE | 2020-09-01 15:11 | NUR ---
PAGER ID: [phone] MESSAGE: Diego Salinas 358B Pt. just fell in room. Pt. still retaining. Bladder scanner wont give amount. Called pt has epididymitis. Never had any retention issues before. Was anything done about kidney stone 12mm on admit? anh 2525
--- NOTE | 2020-09-01 15:37 | NUR ---
BLADDER SCAN 425ML, ROUNDING ON FLOOR
--- NOTE | 2020-09-01 17:36 | NUR ---
PAGER ID: [phone] MESSAGE: Diego Salinas 358b we have coude cath here. no urojet order. Mariah [phone]
[2020-09-01] MEDS ORDERED: LIDOcaine 2% 10ml TOPICAL JELLY (Urojet) MM ONE (17:50)
--- NOTE | 2020-09-01 18:10 | NUR ---
Pt. had one incontinent void large amount of urine. Post void residual bladder scan 210ml in bladder. MD Azevedo called and stated at this point continue to monitor as pt. has voided by himself and may harm himself more with catheter than without. MD Garnica made aware. He agrees with POC. Will cont. to monitor while on my shift.
--- NOTE | 2020-09-01 18:39 | NUR ---
Gave report to Gabriela Bingham RN.
--- NOTE | 2020-09-01 18:40 | NUR ---
Patient in room [facility]. I have received report from HYACINTH Lemus and had the opportunity to ask questions and assume patient care.
[2020-09-01 20:00] VITALS: BP 133/69
[2020-09-01] MEDS: LORazepam 2 mg/ml vial IV PRN (20:39)
[2020-09-01] MEDS: prazosin 1mg capsule PO SCH (21:53)
[2020-09-02 01:00] VITALS: BP 134/59
--- NOTE | 2020-09-02 06:34 | NUR ---
Problems reprioritized. Patient report given, questions answered & plan of care reviewed with HYACINTH Duran.
--- NOTE | 2020-09-02 06:38 | NUR ---
Patient in room [facility]. I have received report from HYACINTH Ochoa and had the opportunity to ask questions and assume patient care.
[2020-09-02 08:00] VITALS: BP 144/59
[2020-09-02] MEDS: prazosin 1mg capsule PO SCH ×2 (08:00→19:57)
[2020-09-02] MEDS: enoxaparin 40mg/0.4ml syringe SUBCUT SCH (08:00)
[2020-09-02] MEDS: OLANZAPINE 5 MG TABLET PO SCH ×2 (08:00→19:57)
[2020-09-02] MEDS: donepezil 5mg tablet PO SCH (08:00)
[2020-09-02] MEDS: sertraline 50mg tablet PO SCH (08:00)
[2020-09-02] MEDS: lactobacillus rhamnosus 10,000 MMU CELLS/CAPSULE PO SCH ×2 (08:00→19:57)
[2020-09-02] MEDS: levoFLOXACIN 500mg tablet PO SCH (11:24)
[2020-09-02 13:13] VITALS: BP 135/45
[2020-09-02 15:04] LABS: BASOPHILS % (AUTO) 0.4 % (0-1); EOSINOPHILS % (AUTO) 0.3 % (0-6); HEMATOCRIT 44.7 % (42.0-52.0); HEMOGLOBIN 15.1 g/dl (14.0-17.9); LYMPHOCYTES # (AUTO) 0.6 X10'3 (1.1-4.8); LYMPHOCYTES % (AUTO) 13.6 % (21-51); MEAN CORPUSCULAR HEMOGLOBIN 30.2 PG (27.0-31.0); MEAN CORPUSCULAR HGB CONC 33.8 g/dL (33.0-36.5); MEAN CORPUSCULAR VOLUME 89.2 FL (78-98); MEAN PLATELET VOLUME 10.5 FL (7.4-10.4); MONOCYTES # (AUTO) 0.6 X10'3 (0-0.9); MONOCYTES % (AUTO) 14.4 % (2-12); NEUTROPHILS # (AUTO) 3.2 X10'3 (1.8-7.7); NEUTROPHILS % (AUTO) 71.3 % (42-75); PLATELET COUNT 148 X10'3 (140-440); RED BLOOD COUNT 5.01 X10'6 (4.70-6.10); RED CELL DISTRIBUTION WIDTH 13.7 % (11.5-14.5); WHITE BLOOD COUNT 4.5 X10'3 (4.5-11.0)
[2020-09-02 15:19] LABS: ALANINE AMINOTRANSFERASE 39 U/L (12-78); ALBUMIN 3.3 G/DL (3.4-5.0); ALKALINE PHOSPHATASE 88 IU/L (46-116); ANION GAP 9 (8-16); ASPARTATE AMINO TRANSFERASE 18 U/L (10-37); BILIRUBIN,TOTAL 0.3 MG/DL (0.1-1.0); BLOOD UREA NITROGEN 19 MG/DL (7-18); BUN/CREATININE RATIO 24.4 (5.4-32.0); CALCIUM 8.8 MG/DL (8.5-10.1); CHLORIDE 106 MMOL/L (99-107); CREATININE 0.78 MG/DL (0.60-1.10); GLUCOSE 104 MG/DL (70-104); POTASSIUM 4.3 MMOL/L (3.5-5.1); SODIUM 140 MMOL/L (135-145); TOTAL CARBON DIOXIDE 24.6 MMOL/L (24-32); TOTAL PROTEIN 6.7 G/DL (6.4-8.2); eGFR > 90 ML/MIN
[2020-09-02 18:00] VITALS: BP 134/56
--- NOTE | 2020-09-02 18:21 | NUR ---
Patient in room [facility]. I have received report from HYACINTH Duran and had the opportunity to ask questions and assume patient care.
--- NOTE | 2020-09-02 18:41 | NUR ---
Problems reprioritized. Patient report given, questions answered & plan of care reviewed with HYACINTH Ochoa.
[2020-09-03] VITALS: BP 146/65
--- NOTE | 2020-09-03 06:17 | NUR ---
Problems reprioritized. Patient report given, questions answered & plan of care reviewed with HYACINTH Duran.
--- NOTE | 2020-09-03 06:28 | NUR ---
Patient in room [facility]. I have received report from HYACINTH Ochoa and had the opportunity to ask questions and assume patient care.
[2020-09-03 08:00] VITALS: BP 126/66
[2020-09-03] MEDS: donepezil 5mg tablet PO SCH (09:51)
[2020-09-03] MEDS: OLANZAPINE 5 MG TABLET PO SCH ×2 (09:51→20:30)
[2020-09-03] MEDS: divalproex sod 250mg ER (24-hour) tablet PO SCH (09:51)
[2020-09-03] MEDS: lactobacillus rhamnosus 10,000 MMU CELLS/CAPSULE PO SCH (09:51)
[2020-09-03] MEDS: sertraline 25mg tablet PO SCH (09:52)
[2020-09-03] MEDS: levoFLOXACIN 500mg tablet PO SCH (09:52)
[2020-09-03] MEDS: prazosin 1mg capsule PO SCH ×2 (09:54→20:30)
[2020-09-03] MEDS: enoxaparin 40mg/0.4ml syringe SUBCUT SCH (09:58)
[2020-09-03 12:00] VITALS: BP 146/68
[2020-09-03 18:00] VITALS: BP 133/57
--- NOTE | 2020-09-03 18:31 | NUR ---
Patient in room [facility]. I have received report from Ana CLAROS and had the opportunity to ask questions and assume patient care.
--- NOTE | 2020-09-03 18:35 | NUR ---
Problems reprioritized. Patient report given, questions answered & plan of care reviewed with HYACINTH Vo.
[2020-09-04 00:35] VITALS: BP 115/52
--- NOTE | 2020-09-04 06:24 | NUR ---
Problems reprioritized. Patient report given, questions answered & plan of care reviewed with Nathalie CLAROS.
--- NOTE | 2020-09-04 06:29 | NUR ---
Patient in room [facility]. I have received report from HYACINTH Vo and had the opportunity to ask questions and assume patient care.
[2020-09-04 07:00] VITALS: BP 115/52
[2020-09-04] MEDS: sertraline 25mg tablet PO SCH (08:54)
[2020-09-04] MEDS: donepezil 5mg tablet PO SCH (08:54)
[2020-09-04] MEDS: divalproex sod 250mg ER (24-hour) tablet PO SCH (08:54)
[2020-09-04] MEDS: OLANZAPINE 5 MG TABLET PO SCH ×2 (08:54→19:25)
[2020-09-04] MEDS: prazosin 1mg capsule PO SCH ×2 (08:54→19:25)
[2020-09-04] MEDS: enoxaparin 40mg/0.4ml syringe SUBCUT SCH (08:55)
[2020-09-04 11:00] VITALS: BP 117/54
[2020-09-04] MEDS: levoFLOXACIN 500mg tablet PO SCH (12:42)
[2020-09-04 18:30] VITALS: BP 151/73
--- NOTE | 2020-09-04 18:51 | NUR ---
Problems reprioritized. Patient report given, questions answered & plan of care reviewed with HYACINTH Haines.
--- NOTE | 2020-09-04 18:52 | NUR ---
Patient in room [facility]. I have received report from JAN CLAROS and had the opportunity to ask questions and assume patient care.
[2020-09-04] MEDS: HYDROcodone/acetaminophen 5mg/325mg tablet PO PRN (19:04)
[2020-09-04] MEDS: clonazePAM 0.5mg tablet PO PRN (19:05)
[2020-09-05] VITALS: BP 103/74
--- NOTE | 2020-09-05 06:25 | NUR ---
Problems reprioritized. Patient report given, questions answered & plan of care reviewed with JAN CLAROS.
--- NOTE | 2020-09-05 06:26 | NUR ---
Patient in room [facility]. I have received report from HYACINTH Haines and had the opportunity to ask questions and assume patient care.
[2020-09-05 07:00] VITALS: BP 124/52
[2020-09-05] MEDS: OLANZAPINE 5 MG TABLET PO SCH ×2 (08:13→20:25)
[2020-09-05] MEDS: prazosin 1mg capsule PO SCH ×2 (08:13→20:25)
[2020-09-05] MEDS: divalproex sod 250mg ER (24-hour) tablet PO SCH (08:13)
[2020-09-05] MEDS: sertraline 25mg tablet PO SCH (08:13)
[2020-09-05] MEDS: donepezil 5mg tablet PO SCH (08:13)
[2020-09-05] MEDS: enoxaparin 40mg/0.4ml syringe SUBCUT SCH (08:13)
[2020-09-05 10:30] VITALS: BP 133/52
[2020-09-05] MEDS: levoFLOXACIN 500mg tablet PO SCH (12:44)
--- NOTE | 2020-09-05 15:31 | NUR ---
Problems reprioritized. Patient report given, questions answered & plan of care reviewed with HYACINTH Romero.
--- NOTE | 2020-09-05 15:37 | NUR ---
Patient in room [facility]. I have received report from Nathalie CLAROS and had the opportunity to ask questions and assume patient care.
--- NOTE | 2020-09-05 15:39 | NUR ---
Have reviewed and agree with Nathalie's a.m. physical assessment of the patient.
--- NOTE | 2020-09-05 18:20 | NUR ---
Patient in room [facility] 358B. I have received report from Heather CLAROS and had the opportunity to ask questions and assume patient care.
--- NOTE | 2020-09-05 18:41 | NUR ---
Problems reprioritized. Patient report given, questions answered & plan of care reviewed with Claudia CLAROS.
[2020-09-05 20:00] VITALS: BP 109/60
[2020-09-05] MEDS: LORazepam 1 MG tablet PO PRN (20:25)
[2020-09-06] MEDS: LORazepam 2 mg/ml vial IV PRN (00:26)
--- NOTE | 2020-09-06 06:13 | NUR ---
Patient in room [facility]. I have received report from Claudia Hanley and had the opportunity to ask questions and assume patient care.
--- NOTE | 2020-09-06 06:15 | NUR ---
Problems reprioritized. Patient report given, questions answered & plan of care reviewed with HYACINTH Perez.
[2020-09-06 07:00] VITALS: BP 131/50
[2020-09-06] MEDS: donepezil 5mg tablet PO SCH (08:00)
[2020-09-06] MEDS: prazosin 1mg capsule PO SCH ×2 (08:00→20:16)
[2020-09-06] MEDS: OLANZAPINE 5 MG TABLET PO SCH ×2 (08:00→20:16)
[2020-09-06] MEDS: divalproex sod 250mg ER (24-hour) tablet PO SCH (08:00)
[2020-09-06] MEDS: sertraline 25mg tablet PO SCH (08:01)
[2020-09-06] MEDS: enoxaparin 40mg/0.4ml syringe SUBCUT SCH (08:01)
[2020-09-06 11:00] VITALS: BP 117/54
[2020-09-06] MEDS: levoFLOXACIN 500mg tablet PO SCH (12:48)
--- NOTE | 2020-09-06 18:28 | NUR ---
Problems reprioritized. Patient report given, questions answered & plan of care reviewed with Claudia CLAROS.
--- NOTE | 2020-09-06 18:29 | NUR ---
Dr ochoa aware that UA was attempted to be collected but pt was uncooperative. Pt has sever hyperspadiac penis and foleys and condom cath are not saying on. Dr Ochoa explained the attempts from several nurse and he stated that just do our best and if we cannot then thats ok. Charge is aware as well.
[2020-09-06 20:00] VITALS: BP 109/49
[2020-09-06] MEDS: LORazepam 1 MG tablet PO PRN (20:16)
--- NOTE | 2020-09-06 23:17 | NUR ---
Patient in room [facility]. I have received report from HYACINTH Perez and had the opportunity to ask questions and assume patient care.
[2020-09-07 00:10] VITALS: BP 93/72
[2020-09-07] MEDS: HYDROcodone/acetaminophen 5mg/325mg tablet PO PRN (05:08)
[2020-09-07] MEDS: LORazepam 1 MG tablet PO PRN (05:08)
--- NOTE | 2020-09-07 06:12 | NUR ---
Problems reprioritized. Patient report given, questions answered & plan of care reviewed with HYACINTH Sherman.
[2020-09-07 07:00] VITALS: BP 130/65
[2020-09-07] MEDS: prazosin 1mg capsule PO SCH ×2 (09:06→20:53)
[2020-09-07] MEDS: divalproex sod 250mg ER (24-hour) tablet PO SCH (09:06)
[2020-09-07] MEDS: donepezil 5mg tablet PO SCH (09:06)
[2020-09-07] MEDS: enoxaparin 40mg/0.4ml syringe SUBCUT SCH (09:07)
[2020-09-07] MEDS: OLANZAPINE 5 MG TABLET PO SCH ×2 (09:07→20:54)
[2020-09-07] MEDS: sertraline 25mg tablet PO SCH (09:07)
[2020-09-07 11:00] VITALS: BP 142/56
--- NOTE | 2020-09-07 11:24 | NUR ---
Reassessment: Patient's PO intake fluctuates with average down to 25-50% on pureed diet. Per dietary pt no longer receiving double protein TID. Pt documented to be receiving assistance with meals. D/w dietary to trial nectar thickened shake and Magic Cup to optimize PO intake. LBM 09/06. Pt awaiting placement per MD note. Will continue to follow closely and monitor need for further nutrition intervention. Recommendations: 1) Continue pureed food with NTL per ST recs 2) Resume double eggs q breakfast and double meat BIDLD for satiety if PO intake improves 3) Magic Cup [place], [place] thickened shake [place] 4) Routine bowel care 5) Scaled weights per rx Addendum: 09/07/20 at [address] Amended: Links added.
--- NOTE | 2020-09-07 18:06 | NUR ---
Problems reprioritized. Patient report given, questions answered & plan of care reviewed with Rinku CLAROS.
[2020-09-07 19:00] VITALS: BP 129/53
[2020-09-07 19:10] VITALS: BP 129/53
[2020-09-08] MEDS: LORazepam 2 mg/ml vial IV PRN (01:18)
--- NOTE | 2020-09-08 06:40 | NUR ---
Problems reprioritized. Patient report given, questions answered & plan of care reviewed with JAMIE. Addendum: 09/08/20 at 0640 by Shine Shore RN Amended: Links added.
[2020-09-08 07:40] VITALS: BP 114/55
[2020-09-08] MEDS: sertraline 25mg tablet PO SCH (08:03)
[2020-09-08] MEDS: donepezil 5mg tablet PO SCH (08:03)
[2020-09-08] MEDS: enoxaparin 40mg/0.4ml syringe SUBCUT SCH (08:04)
[2020-09-08] MEDS: prazosin 1mg capsule PO SCH ×2 (08:04→19:19)
[2020-09-08] MEDS: OLANZAPINE 5 MG TABLET PO SCH ×2 (08:04→19:19)
[2020-09-08] MEDS: divalproex sod 250mg ER (24-hour) tablet PO SCH (08:04)
[2020-09-08 12:26] VITALS: BP 154/76
--- NOTE | 2020-09-08 17:05 | NUR ---
received report from HYACINTH Underwood. awaiting patient arrival. Addendum: 09/08/20 at 1813 by Suzanne Collado RN DISREGUARD NOTE, WRONG PATIENT.
--- NOTE | 2020-09-08 18:12 | NUR ---
Problems reprioritized. Patient report given, questions answered & plan of care reviewed with CLEO Bingham RN.
--- NOTE | 2020-09-08 18:19 | NUR ---
Patient in room [facility]. I have received report from HYACINTH Palacios and had the opportunity to ask questions and assume patient care.
[2020-09-08 19:16] VITALS: BP 146/48
[2020-09-08 23:29] VITALS: BP 94/58
--- NOTE | 2020-09-09 06:16 | NUR ---
Problems reprioritized. Patient report given, questions answered & plan of care reviewed with HYACINTH Olmstead.
--- NOTE | 2020-09-09 06:40 | NUR ---
Patient in room [facility]. I have received report from Gabriela Bingham RN, and had the opportunity to ask questions and assume patient care.
[2020-09-09 07:05] LABS: BASOPHILS % (AUTO) 0.5 % (0-1); EOSINOPHILS % (AUTO) 0.2 % (0-6); HEMATOCRIT 44.8 % (42.0-52.0); HEMOGLOBIN 15.1 g/dl (14.0-17.9); LYMPHOCYTES # (AUTO) 0.7 X10'3 (1.1-4.8); LYMPHOCYTES % (AUTO) 10.2 % (21-51); MEAN CORPUSCULAR HEMOGLOBIN 29.6 PG (27.0-31.0); MEAN CORPUSCULAR HGB CONC 33.6 g/dL (33.0-36.5); MEAN CORPUSCULAR VOLUME 88.1 FL (78-98); MEAN PLATELET VOLUME 9.7 FL (7.4-10.4); MONOCYTES # (AUTO) 0.7 X10'3 (0-0.9); MONOCYTES % (AUTO) 10.3 % (2-12); NEUTROPHILS # (AUTO) 5.5 X10'3 (1.8-7.7); NEUTROPHILS % (AUTO) 78.8 % (42-75); PLATELET COUNT 219 X10'3 (140-440); RED BLOOD COUNT 5.09 X10'6 (4.70-6.10); RED CELL DISTRIBUTION WIDTH 14.2 % (11.5-14.5); WHITE BLOOD COUNT 6.9 X10'3 (4.5-11.0)
[2020-09-09 07:22] LABS: D-DIMER 0.48 MG/L FEU (0-0.50)
[2020-09-09 07:28] LABS: ALANINE AMINOTRANSFERASE 31 U/L (12-78); ALBUMIN 3.3 G/DL (3.4-5.0); ALKALINE PHOSPHATASE 83 IU/L (46-116); ANION GAP 9 (8-16); ASPARTATE AMINO TRANSFERASE 16 U/L (10-37); BILIRUBIN,TOTAL 0.5 MG/DL (0.1-1.0); BLOOD UREA NITROGEN 18 MG/DL (7-18); BUN/CREATININE RATIO 23.4 (5.4-32.0); C-REACTIVE PROTEIN 1.04 MG/DL (0.0-0.5); CALCIUM 8.7 MG/DL (8.5-10.1); CHLORIDE 114 MMOL/L (99-107); CREATININE 0.77 MG/DL (0.60-1.10); GLUCOSE 122 MG/DL (70-104); LACTATE DEHYDROGENASE 182 U/L (85-227); MAGNESIUM 2.1 MG/DL (1.5-2.4); PHOSPHORUS 2.9 MG/DL (2.3-4.5); POTASSIUM 3.7 MMOL/L (3.5-5.1); SODIUM 149 MMOL/L (135-145); TOTAL PROTEIN 6.7 G/DL (6.4-8.2); eGFR > 90 ML/MIN
[2020-09-09 08:00] VITALS: BP 98/53
[2020-09-09] MEDS: donepezil 5mg tablet PO SCH (08:29)
[2020-09-09] MEDS: enoxaparin 40mg/0.4ml syringe SUBCUT SCH (08:30)
[2020-09-09] MEDS: divalproex sod 250mg ER (24-hour) tablet PO SCH (08:30)
[2020-09-09] MEDS: OLANZAPINE 5 MG TABLET PO SCH ×2 (08:30→19:35)
[2020-09-09] MEDS: sertraline 25mg tablet PO SCH (08:30)
[2020-09-09] MEDS: prazosin 1mg capsule PO SCH ×2 (08:31→19:35)
[2020-09-09 11:00] VITALS: BP 148/55
--- NOTE | 2020-09-09 13:00 | NUR ---
Notified [facility] of +Covid swab. Pt to be moved to room 4020B.
--- NOTE | 2020-09-09 14:00 | NUR ---
Patient report given, questions answered & plan of care reviewed with Rinku Del Angel RN.
--- NOTE | 2020-09-09 14:20 | NUR ---
Pt transferred from 358b to 4020b via bed. Pt awake and alert. Abnormal jerking movements noted to arms and legs as well as abnormal facial expressions with unintelligeble speech. VSS. Oriented pt to room and surroundings.
[2020-09-09 14:30] VITALS: BP 153/60
[2020-09-09] MEDS: dexamethasone 4mg tablet PO SCH (14:52)
--- NOTE | 2020-09-09 15:24 | NUR ---
Pt agitated and keeps trying to get OOB. Asked pt if he needed to use the bathroom. Pt could not verbalize understanding and not able to follow directions at this time. Pt frustrated and confused of surroundings. basket hand braider at the bedside to reassure pt is safe and orient pt to surroundings.
[2020-09-09 18:00] VITALS: BP 112/61
[2020-09-09] MEDS: acetaminophen 325mg tablet PO PRN (19:35)
[2020-09-09 22:00] VITALS: BP 101/47
[2020-09-10] MEDS: LORazepam 1 MG tablet PO PRN ×3 (01:14→22:29)
[2020-09-10 02:00] VITALS: BP 139/60
[2020-09-10 06:00] VITALS: BP 130/62
--- NOTE | 2020-09-10 06:21 | NUR ---
Problems reprioritized. Patient report given, questions answered & plan of care reviewed with Naomi CLAROS.
[2020-09-10 07:27] LABS: BASOPHILS % (AUTO) 0.3 % (0-1); EOSINOPHILS % (AUTO) 0.2 % (0-6); HEMATOCRIT 45.7 % (42.0-52.0); HEMOGLOBIN 15.5 g/dl (14.0-17.9); LYMPHOCYTES # (AUTO) 0.8 X10'3 (1.1-4.8); MEAN CORPUSCULAR HEMOGLOBIN 29.7 PG (27.0-31.0); MEAN CORPUSCULAR HGB CONC 33.9 g/dL (33.0-36.5); MEAN CORPUSCULAR VOLUME 87.7 FL (78-98); MEAN PLATELET VOLUME 9.4 FL (7.4-10.4); MONOCYTES # (AUTO) 1.1 X10'3 (0-0.9); MONOCYTES % (AUTO) 10.6 % (2-12); NEUTROPHILS # (AUTO) 8.3 X10'3 (1.8-7.7); NEUTROPHILS % (AUTO) 80.9 % (42-75); PLATELET COUNT 240 X10'3 (140-440); RED BLOOD COUNT 5.22 X10'6 (4.70-6.10); RED CELL DISTRIBUTION WIDTH 13.8 % (11.5-14.5); WHITE BLOOD COUNT 10.2 X10'3 (4.5-11.0)
[2020-09-10 07:34] LABS: D-DIMER 0.61 MG/L FEU (0-0.50)
[2020-09-10 07:46] LABS: ALANINE AMINOTRANSFERASE 36 U/L (12-78); ALBUMIN 3.4 G/DL (3.4-5.0); ALBUMIN/GLOBULIN RATIO 0.9 (1.1-1.5); ALKALINE PHOSPHATASE 84 IU/L (46-116); ANION GAP 11 (8-16); ASPARTATE AMINO TRANSFERASE 14 U/L (10-37); BILIRUBIN,TOTAL 0.6 MG/DL (0.1-1.0); BLOOD UREA NITROGEN 22 MG/DL (7-18); BUN/CREATININE RATIO 28.6 (5.4-32.0); C-REACTIVE PROTEIN 0.31 MG/DL (0.0-0.5); CALCIUM 8.7 MG/DL (8.5-10.1); CHLORIDE 116 MMOL/L (99-107); CREATININE 0.77 MG/DL (0.60-1.10); GLUCOSE 123 MG/DL (70-104); LACTATE DEHYDROGENASE 188 U/L (85-227); MAGNESIUM 2.3 MG/DL (1.5-2.4); PHOSPHORUS 3.1 MG/DL (2.3-4.5); POTASSIUM 3.5 MMOL/L (3.5-5.1); SODIUM 152 MMOL/L (135-145); TOTAL CARBON DIOXIDE 25.5 MMOL/L (24-32); eGFR > 90 ML/MIN
[2020-09-10] MEDS: enoxaparin 40mg/0.4ml syringe SUBCUT SCH (09:18)
[2020-09-10] MEDS: dexamethasone 4mg tablet PO SCH (09:19)
[2020-09-10] MEDS: donepezil 5mg tablet PO SCH (09:19)
[2020-09-10] MEDS: OLANZAPINE 5 MG TABLET PO SCH ×2 (09:19→19:40)
[2020-09-10] MEDS: prazosin 1mg capsule PO SCH ×2 (09:20→19:39)
[2020-09-10] MEDS: sertraline 25mg tablet PO SCH (09:21)
[2020-09-10] MEDS: divalproex sod 250mg ER (24-hour) tablet PO SCH (09:21)
--- NOTE | 2020-09-10 13:56 | NUR ---
Reassessment: Pt presented with advanced Gina's disease and dementia, and still awaiting placement per physician's notes.Pt PO intake is still fluctuating with the average of 25-50% on pureed diet, and receiving feeding assistance with meals. D/w dietary to trial vanilla yogurt for breakfast. Recommend to continue sending nectar thickened shake and Magic Cup to optimize PO intake. Pt last BM 09/08, recommend bowel care as needed. Will continue to monitor Recommendations: 1) Continue pureed food with NTL per ST recs 2) Continue sending Magic Cup WL, [place] thickened shake WS 4) Vanilla yogurt with breakfast 4) Routine bowel care 5) Scaled weights per rx Addendum: 09/10/20 at 1356 by Damian Burrell CLIENT ACCOUNT ASSISTANT RD Amended: Links added. Addendum: 09/10/20 at [address] RD agree with development intern note
[2020-09-10 14:00] VITALS: BP 111/63
[2020-09-10 18:00] VITALS: BP 144/54
--- NOTE | 2020-09-10 18:25 | NUR ---
Problems reprioritized. Patient report given, questions answered & plan of care reviewed with Ivy CLAROS.
[2020-09-10 22:00] VITALS: BP 109/58
[2020-09-11 02:00] VITALS: BP 123/60
[2020-09-11] MEDS: LORazepam 1 MG tablet PO PRN ×3 (02:28→23:26)
--- NOTE | 2020-09-11 06:16 | NUR ---
Problems reprioritized. Patient report given, questions answered & plan of care reviewed with HYACINTH Salgado.
[2020-09-11 06:22] VITALS: BP 135/54
[2020-09-11 06:40] LABS: BASOPHILS % (AUTO) 0.3 % (0-1); EOSINOPHILS % (AUTO) 0 % (0-6); HEMATOCRIT 46.1 % (42.0-52.0); HEMOGLOBIN 15.6 g/dl (14.0-17.9); LYMPHOCYTES % (AUTO) 7.8 % (21-51); MEAN CORPUSCULAR HEMOGLOBIN 29.6 PG (27.0-31.0); MEAN CORPUSCULAR HGB CONC 33.9 g/dL (33.0-36.5); MEAN CORPUSCULAR VOLUME 87.4 FL (78-98); MONOCYTES # (AUTO) 1.2 X10'3 (0-0.9); MONOCYTES % (AUTO) 9.6 % (2-12); NEUTROPHILS # (AUTO) 10.6 X10'3 (1.8-7.7); NEUTROPHILS % (AUTO) 82.3 % (42-75); PLATELET COUNT 288 X10'3 (140-440); RED BLOOD COUNT 5.27 X10'6 (4.70-6.10); RED CELL DISTRIBUTION WIDTH 13.9 % (11.5-14.5); WHITE BLOOD COUNT 12.8 X10'3 (4.5-11.0)
[2020-09-11 06:45] LABS: D-DIMER 0.48 MG/L FEU (0-0.50)
[2020-09-11 07:08] LABS: ANION GAP 8 (8-16); BLOOD UREA NITROGEN 26 MG/DL (7-18); BUN/CREATININE RATIO 28.9 (5.4-32.0); CHLORIDE 118 MMOL/L (99-107); GLUCOSE 122 MG/DL (70-104); POTASSIUM 3.7 MMOL/L (3.5-5.1); SODIUM 154 MMOL/L (135-145); TOTAL CARBON DIOXIDE 27.7 MMOL/L (24-32)
[2020-09-11 07:09] LABS: ALANINE AMINOTRANSFERASE 39 U/L (12-78); ALBUMIN 3.4 G/DL (3.4-5.0); ASPARTATE AMINO TRANSFERASE 15 U/L (10-37); BILIRUBIN,TOTAL 0.5 MG/DL (0.1-1.0); C-REACTIVE PROTEIN 0.14 MG/DL (0.0-0.5); CALCIUM 8.5 MG/DL (8.5-10.1); LACTATE DEHYDROGENASE 183 U/L (85-227); MAGNESIUM 2.4 MG/DL (1.5-2.4); PHOSPHORUS 3.8 MG/DL (2.3-4.5); TOTAL PROTEIN 6.8 G/DL (6.4-8.2); eGFR 84 ML/MIN
[2020-09-11 07:29] LABS: ALKALINE PHOSPHATASE 84 IU/L (46-116)
[2020-09-11] MEDS: prazosin 1mg capsule PO SCH ×2 (08:02→18:52)
[2020-09-11] MEDS: donepezil 5mg tablet PO SCH (08:02)
[2020-09-11] MEDS: sertraline 25mg tablet PO SCH (08:02)
[2020-09-11] MEDS: divalproex sod 250mg ER (24-hour) tablet PO SCH (08:02)
[2020-09-11] MEDS: dexamethasone 4mg tablet PO SCH (08:02)
[2020-09-11] MEDS: OLANZAPINE 5 MG TABLET PO SCH ×2 (08:02→19:26)
[2020-09-11] MEDS: enoxaparin 40mg/0.4ml syringe SUBCUT SCH (08:03)
[2020-09-11 09:16] VITALS: BP 100/46
[2020-09-11] MEDS: dextrose 5%-water 1,000 ML IV SCH (13:31)
[2020-09-11 13:55] VITALS: BP 128/78
[2020-09-11 18:00] VITALS: BP 109/55
--- NOTE | 2020-09-11 18:19 | NUR ---
Problems reprioritized. Patient report given, questions answered & plan of care reviewed with Ivy CLAROS.
[2020-09-11 22:00] VITALS: BP 133/106
[2020-09-12 02:00] VITALS: BP 118/54
[2020-09-12] MEDS: LORazepam 1 MG tablet PO PRN (03:28)
[2020-09-12 06:00] VITALS: BP 128/56
--- NOTE | 2020-09-12 06:10 | NUR ---
Problems reprioritized. Patient report given, questions answered & plan of care reviewed with HYACINTH Holcomb.
[2020-09-12 06:37] LABS: D-DIMER 0.83 MG/L FEU (0-0.50)
[2020-09-12 06:42] LABS: BASOPHILS # (AUTO) 0.1 X10'3 (0-0.2); BASOPHILS % (AUTO) 0.5 % (0-1); EOSINOPHILS % (AUTO) 0.1 % (0-6); HEMATOCRIT 46.4 % (42.0-52.0); HEMOGLOBIN 15.6 g/dl (14.0-17.9); LYMPHOCYTES # (AUTO) 1.2 X10'3 (1.1-4.8); LYMPHOCYTES % (AUTO) 8.4 % (21-51); MEAN CORPUSCULAR HEMOGLOBIN 29.8 PG (27.0-31.0); MEAN CORPUSCULAR HGB CONC 33.7 g/dL (33.0-36.5); MEAN CORPUSCULAR VOLUME 88.4 FL (78-98); MEAN PLATELET VOLUME 9.5 FL (7.4-10.4); MONOCYTES # (AUTO) 1.5 X10'3 (0-0.9); MONOCYTES % (AUTO) 10.5 % (2-12); NEUTROPHILS # (AUTO) 11.5 X10'3 (1.8-7.7); NEUTROPHILS % (AUTO) 80.5 % (42-75); PLATELET COUNT 289 X10'3 (140-440); RED BLOOD COUNT 5.25 X10'6 (4.70-6.10); WHITE BLOOD COUNT 14.3 X10'3 (4.5-11.0)
[2020-09-12 06:49] LABS: ALANINE AMINOTRANSFERASE 40 U/L (12-78); ALBUMIN 3.3 G/DL (3.4-5.0); ALKALINE PHOSPHATASE 89 IU/L (46-116); ANION GAP 9 (8-16); ASPARTATE AMINO TRANSFERASE 19 U/L (10-37); BILIRUBIN,TOTAL 0.7 MG/DL (0.1-1.0); BLOOD UREA NITROGEN 23 MG/DL (7-18); CALCIUM 8.4 MG/DL (8.5-10.1); CHLORIDE 119 MMOL/L (99-107); CREATININE 0.82 MG/DL (0.60-1.10); GLUCOSE 128 MG/DL (70-104); LACTATE DEHYDROGENASE 214 U/L (85-227); MAGNESIUM 2.4 MG/DL (1.5-2.4); PHOSPHORUS 3.4 MG/DL (2.3-4.5); POTASSIUM 3.8 MMOL/L (3.5-5.1); SODIUM 154 MMOL/L (135-145); TOTAL CARBON DIOXIDE 25.6 MMOL/L (24-32); TOTAL PROTEIN 6.7 G/DL (6.4-8.2); eGFR > 90 ML/MIN
[2020-09-12] MEDS: dextrose 5%-water 1,000 ML IV SCH (10:07)
[2020-09-12] MEDS: donepezil 5mg tablet PO SCH (10:07)
[2020-09-12] MEDS: OLANZAPINE 5 MG TABLET PO SCH ×2 (10:08→19:29)
[2020-09-12] MEDS: prazosin 1mg capsule PO SCH ×2 (10:08→19:22)
[2020-09-12] MEDS: dexamethasone 4mg tablet PO SCH (10:08)
[2020-09-12] MEDS: sertraline 25mg tablet PO SCH (10:08)
[2020-09-12] MEDS: divalproex sod 250mg ER (24-hour) tablet PO SCH (10:09)
[2020-09-12] MEDS: enoxaparin 40mg/0.4ml syringe SUBCUT SCH (10:09)
[2020-09-12 14:00] VITALS: BP 114/95
[2020-09-12 18:00] VITALS: BP 117/58
--- NOTE | 2020-09-12 18:37 | NUR ---
Patient in room ORTHO 4020. I have received report from HYACINTH WEISS and had the opportunity to ask questions and assume patient care.
[2020-09-12 22:00] VITALS: BP 151/78
[2020-09-13] MEDS: dextrose 5%-water 1,000 ML IV SCH (05:15)
[2020-09-13 06:10] VITALS: BP 121/58
--- NOTE | 2020-09-13 06:34 | NUR ---
Problems reprioritized. Patient report given, questions answered & plan of care reviewed with HYACINTH CAMPBELL.
--- NOTE | 2020-09-13 06:42 | NUR ---
Patient in room ORTHO 4020. I have received report from Wilma CLAROS and had the opportunity to ask questions and assume patient care.
[2020-09-13 07:22] LABS: BASOPHILS % (AUTO) 0.3 % (0-1); EOSINOPHILS % (AUTO) 0.1 % (0-6); HEMATOCRIT 46.1 % (42.0-52.0); HEMOGLOBIN 15.4 g/dl (14.0-17.9); LYMPHOCYTES # (AUTO) 1.2 X10'3 (1.1-4.8); MEAN CORPUSCULAR HEMOGLOBIN 29.8 PG (27.0-31.0); MEAN CORPUSCULAR HGB CONC 33.4 g/dL (33.0-36.5); MEAN CORPUSCULAR VOLUME 89.3 FL (78-98); MEAN PLATELET VOLUME 9.9 FL (7.4-10.4); MONOCYTES # (AUTO) 1.2 X10'3 (0-0.9); MONOCYTES % (AUTO) 11.7 % (2-12); NEUTROPHILS # (AUTO) 7.6 X10'3 (1.8-7.7); NEUTROPHILS % (AUTO) 75.9 % (42-75); PLATELET COUNT 223 X10'3 (140-440); RED BLOOD COUNT 5.16 X10'6 (4.70-6.10)
[2020-09-13 07:47] LABS: D-DIMER 0.66 MG/L FEU (0-0.50)
[2020-09-13 07:55] LABS: ALANINE AMINOTRANSFERASE 44 U/L (12-78); ALBUMIN 3.1 G/DL (3.4-5.0); ALKALINE PHOSPHATASE 85 IU/L (46-116); ANION GAP 9 (8-16); ASPARTATE AMINO TRANSFERASE 18 U/L (10-37); BILIRUBIN,TOTAL 0.7 MG/DL (0.1-1.0); BLOOD UREA NITROGEN 22 MG/DL (7-18); BUN/CREATININE RATIO 28.9 (5.4-32.0); C-REACTIVE PROTEIN 0.31 MG/DL (0.0-0.5); CHLORIDE 118 MMOL/L (99-107); CREATININE 0.76 MG/DL (0.60-1.10); GLUCOSE 138 MG/DL (70-104); LACTATE DEHYDROGENASE 208 U/L (85-227); MAGNESIUM 2.6 MG/DL (1.5-2.4); POTASSIUM 3.7 MMOL/L (3.5-5.1); SODIUM 153 MMOL/L (135-145); TOTAL PROTEIN 6.3 G/DL (6.4-8.2); eGFR > 90 ML/MIN
[2020-09-13] MEDS: prazosin 1mg capsule PO SCH ×2 (08:10→19:23)
[2020-09-13] MEDS: divalproex sod 250mg ER (24-hour) tablet PO SCH (08:10)
[2020-09-13] MEDS: OLANZAPINE 5 MG TABLET PO SCH ×2 (08:10→19:23)
[2020-09-13] MEDS: enoxaparin 40mg/0.4ml syringe SUBCUT SCH (08:10)
[2020-09-13] MEDS: sertraline 25mg tablet PO SCH (08:10)
[2020-09-13] MEDS: donepezil 5mg tablet PO SCH (08:10)
[2020-09-13] MEDS: dexamethasone 4mg tablet PO SCH (08:10)
[2020-09-13 10:00] VITALS: BP 113/51
[2020-09-13 14:00] VITALS: BP 108/50
--- NOTE | 2020-09-13 14:18 | NUR ---
F/u 2/1: Pt AOx1 combative kicking staff w/ sitter as well as feeder on pureed/nectar thick diet per [facility] recs; PO ~25-49% avg meals fluctuating not meeting needs. LBM 2/1 following prior 5 day constipation pending BM description in EMR. Na 153 receiving D5/water at 50ml/hr per MD. Pt currently receiving yogurt WB, magic cup WL, and thickened magic cup shake WS. RD recommends ensure enlive TIDWM given protein/kcal needs; may tolerate liquid kcals better at this time. MD notified. Will continue to monitor for PO acceptance and additional protein/kcal needs. Recommendations: 1) Continue pureed/nectar thick diet w/ feeder per ST recs; encourage PO 2) Continue vanilla yogurt WB, Magic Cup WL, [place] thickened shake WS; encourage PO 3) nectar thick ensure enlive TIDWM 4) Routine bowel care 5) Scaled weight this admit Addendum: 09/13/20 at [address] Amended: Links added.
[2020-09-13 18:00] VITALS: BP 123/65
--- NOTE | 2020-09-13 18:19 | NUR ---
Patient in room ORTHO 4020. I have received report from opal Atkinson and had the opportunity to ask questions and assume patient care.
--- NOTE | 2020-09-13 18:35 | NUR ---
Patient report given to Wilma CLAROS
[2020-09-13 22:00] VITALS: BP 127/45
[2020-09-14] VITALS (7 sets, daily range): BP systolic 95–118; BP diastolic 43–60
[2020-09-14] MEDS: dextrose 5%-water 1,000 ML IV SCH (02:43)
--- NOTE | 2020-09-14 06:45 | NUR ---
Problems reprioritized. Patient report given, questions answered & plan of care reviewed with EMILIERN.
[2020-09-14] MEDS: prazosin 1mg capsule PO SCH ×2 (08:00→19:57)
[2020-09-14] MEDS: OLANZAPINE 5 MG TABLET PO SCH ×2 (08:43→19:58)
[2020-09-14] MEDS: enoxaparin 40mg/0.4ml syringe SUBCUT SCH (08:43)
[2020-09-14] MEDS: donepezil 5mg tablet PO SCH (08:43)
[2020-09-14] MEDS: dexamethasone 4mg tablet PO SCH (08:43)
[2020-09-14] MEDS: divalproex sod 250mg ER (24-hour) tablet PO SCH (08:44)
[2020-09-14] MEDS: sertraline 25mg tablet PO SCH (11:49)
[2020-09-14] MEDS: lactose-reduced food (Ensure Enlive) - 237ml bottle PO SCH ×2 (18:00→18:20)
--- NOTE | 2020-09-14 18:22 | NUR ---
Patient in room ORTHO 4009. I have received report from HYACINTH PHAN and had the opportunity to ask questions and assume patient care.
[2020-09-15 02:00] VITALS: BP 109/50
[2020-09-15] MEDS: dextrose 5%-water 1,000 ML IV SCH ×2 (04:13→17:30)
[2020-09-15 06:00] VITALS: BP 105/51
--- NOTE | 2020-09-15 06:10 | NUR ---
received report from opal pierce
--- NOTE | 2020-09-15 06:24 | NUR ---
Problems reprioritized. Patient report given, questions answered & plan of care reviewed with HYACINTH MONTERO.
[2020-09-15] MEDS: prazosin 1mg capsule PO SCH ×2 (07:53→20:00)
[2020-09-15] MEDS: dexamethasone 4mg tablet PO SCH (08:05)
[2020-09-15] MEDS: donepezil 5mg tablet PO SCH (08:05)
[2020-09-15] MEDS: divalproex sod 250mg ER (24-hour) tablet PO SCH (08:05)
[2020-09-15] MEDS: OLANZAPINE 5 MG TABLET PO SCH ×2 (08:05→21:34)
[2020-09-15] MEDS: sertraline 25mg tablet PO SCH (08:06)
[2020-09-15] MEDS: enoxaparin 40mg/0.4ml syringe SUBCUT SCH (08:06)
[2020-09-15 10:00] VITALS: BP 109/49
--- NOTE | 2020-09-15 12:55 | NUR ---
pt pulled out iv and nursing staff attempted to restart an iv, pt is trashing too much and not holding still at this time, continue to monitor
--- NOTE | 2020-09-15 14:00 | NUR ---
pt too agitated to get vs at this time, sitter at bedside continue to monitor
--- NOTE | 2020-09-15 15:05 | NUR ---
md aware of pt not having an iv at this time, continue to monitor
[2020-09-15 18:30] VITALS: BP 108/48
--- NOTE | 2020-09-15 18:39 | NUR ---
GAVE REPORT TO HYACINTH PHAN
[2020-09-15] MEDS: LORazepam 1 MG tablet PO PRN (21:34)
[2020-09-15 22:00] VITALS: BP 112/40
[2020-09-16 02:00] VITALS: BP 126/42
[2020-09-16 06:00] VITALS: BP 104/46
--- NOTE | 2020-09-16 06:10 | NUR ---
received report from lucita rn
[2020-09-16] MEDS: prazosin 1mg capsule PO SCH ×2 (07:41→20:51)
[2020-09-16] MEDS: OLANZAPINE 5 MG TABLET PO SCH ×2 (07:47→20:49)
[2020-09-16] MEDS: donepezil 5mg tablet PO SCH (07:47)
[2020-09-16] MEDS: divalproex sod 250mg ER (24-hour) tablet PO SCH (07:47)
[2020-09-16] MEDS: enoxaparin 40mg/0.4ml syringe SUBCUT SCH (07:48)
[2020-09-16] MEDS: dexamethasone 4mg tablet PO SCH (07:48)
[2020-09-16] MEDS: sertraline 25mg tablet PO SCH (07:59)
[2020-09-16 08:24] LABS: BASOPHILS % (AUTO) 0.3 % (0-1); EOSINOPHILS # (AUTO) 0.2 X10'3 (0-0.9); EOSINOPHILS % (AUTO) 1.3 % (0-6); HEMATOCRIT 47.6 % (42.0-52.0); HEMOGLOBIN 15.8 g/dl (14.0-17.9); LYMPHOCYTES # (AUTO) 1.6 X10'3 (1.1-4.8); LYMPHOCYTES % (AUTO) 12.9 % (21-51); MEAN CORPUSCULAR HEMOGLOBIN 29.4 PG (27.0-31.0); MEAN CORPUSCULAR HGB CONC 33.2 g/dL (33.0-36.5); MEAN CORPUSCULAR VOLUME 88.5 FL (78-98); MEAN PLATELET VOLUME 9.7 FL (7.4-10.4); MONOCYTES # (AUTO) 1.2 X10'3 (0-0.9); MONOCYTES % (AUTO) 9.5 % (2-12); NEUTROPHILS # (AUTO) 9.4 X10'3 (1.8-7.7); PLATELET COUNT 217 X10'3 (140-440); RED BLOOD COUNT 5.38 X10'6 (4.70-6.10); RED CELL DISTRIBUTION WIDTH 13.7 % (11.5-14.5); WHITE BLOOD COUNT 12.4 X10'3 (4.5-11.0)
[2020-09-16 08:38] LABS: ALBUMIN 3.2 G/DL (3.4-5.0); ANION GAP 9 (8-16); BLOOD UREA NITROGEN 12 MG/DL (7-18); BUN/CREATININE RATIO 18.2 (5.4-32.0); CALCIUM 8.6 MG/DL (8.5-10.1); CHLORIDE 106 MMOL/L (99-107); CREATININE 0.66 MG/DL (0.60-1.10); GLUCOSE 108 MG/DL (70-104); POTASSIUM 3.9 MMOL/L (3.5-5.1); SODIUM 140 MMOL/L (135-145); TOTAL CARBON DIOXIDE 24.8 MMOL/L (24-32); eGFR > 90 ML/MIN
[2020-09-16 10:00] VITALS: BP 112/40
--- NOTE | 2020-09-16 10:00 | NUR ---
sent a page to hospitalist because dietary wanted to start pt on ensure enlive, i told dietary that the ensure would have to be nectar thick and dietary said that they would be able to do that, no new orders at this time
--- NOTE | 2020-09-16 11:30 | NUR ---
Lee Consult: Lee 12; skin intact. Pt remains ALOC kicking and pulling at things w/ sitter present per EMR. PO ~25-50% avg pureed/NTL diet not meeting needs. Ensure Enlive ONS recs never verified by MD so unable to send w/ meals; LUZMARIA d/w RN regarding ONS clarification since pt would benefit from ONS w/ poor PO. LBM 2/3 receiving PRN MoM. Will continue to monitor for additional protein/kcal needs. Recommendations: 1) Continue pureed/nectar thick diet w/ feeder per ST recs; encourage PO 2) Continue vanilla yogurt WB, Magic Cup WL, [place] thickened shake WS; encourage PO 3) nectar thick ensure enlive TIDWM once verified by MD in EMR 4) Routine bowel care 5) Scaled weight this admit Addendum: 09/16/20 at [address] Amended: Links added.
[2020-09-16] MEDS: LORazepam 2 mg/ml vial IV PRN ×2 (12:36→21:15)
[2020-09-16] MEDS: dextrose 5%-water 1,000 ML IV SCH (12:36)
[2020-09-16 14:00] VITALS: BP 122/60
[2020-09-16 18:00] VITALS: BP 127/57
--- NOTE | 2020-09-16 18:33 | NUR ---
GAVE REPORT TO PRUDENCE, RN
--- NOTE | 2020-09-16 18:52 | NUR ---
Patient in room ORTHO 4009. I have received report from KYLAH CLAROS and had the opportunity to ask questions and assume patient care.
--- NOTE | 2020-09-16 20:18 | NUR ---
Problems reprioritized. Patient report given, questions answered & plan of care reviewed with GARRET CLAROS.
--- NOTE | 2020-09-16 20:19 | NUR ---
Patient in room ORTHO 4009. I have received report from HYACINTH Caldera and had the opportunity to ask questions and assume patient care.
[2020-09-16] MEDS: LORazepam 1 MG tablet PO PRN (20:49)
--- NOTE | 2020-09-16 21:19 | NUR ---
I spoke to Dr. Villanueva and got the order to give a dose of iv ativan prn that was ordered every 4 hours now even though he recently had Po Ativan since he is going crazy and kicking out and trying to get out of bed.
[2020-09-16 22:00] VITALS: BP 134/66
[2020-09-17] MEDS: LORazepam 1 MG tablet PO PRN ×2 (01:22→05:14)
--- NOTE | 2020-09-17 06:09 | NUR ---
Problems reprioritized. Patient report given, questions answered & plan of care reviewed with HYACINTH Sanchez.
[2020-09-17 06:27] VITALS: BP 112/94
[2020-09-17] MEDS: sertraline 25mg tablet PO SCH (07:49)
[2020-09-17] MEDS: dexamethasone 4mg tablet PO SCH (07:49)
[2020-09-17] MEDS: donepezil 5mg tablet PO SCH (07:49)
[2020-09-17] MEDS: OLANZAPINE 5 MG TABLET PO SCH ×2 (07:50→19:57)
[2020-09-17] MEDS: prazosin 1mg capsule PO SCH ×3 (07:50→20:00)
[2020-09-17] MEDS: enoxaparin 40mg/0.4ml syringe SUBCUT SCH (07:50)
[2020-09-17] MEDS: divalproex sod 250mg ER (24-hour) tablet PO SCH (07:52)
[2020-09-17] MEDS: dextrose 5%-water 1,000 ML IV SCH (09:30)
[2020-09-17 11:00] VITALS: BP 151/47
[2020-09-17 18:00] VITALS: BP 103/58
--- NOTE | 2020-09-17 18:21 | NUR ---
Patient in room ORTHO 4009. I have received report from HYACINTH Sanchez and had the opportunity to ask questions and assume patient care.
[2020-09-17 20:00] VITALS: BP 97/44
[2020-09-17 22:00] VITALS: BP 98/50
--- NOTE | 2020-09-18 06:09 | NUR ---
Problems reprioritized. Patient report given, questions answered & plan of care reviewed with HYACINTH Dobbs.
[2020-09-18 06:37] VITALS: BP 118/62
[2020-09-18] MEDS: prazosin 1mg capsule PO SCH ×2 (07:39→19:35)
[2020-09-18] MEDS: donepezil 5mg tablet PO SCH (07:39)
[2020-09-18] MEDS: OLANZAPINE 5 MG TABLET PO SCH ×2 (07:40→19:37)
[2020-09-18] MEDS: enoxaparin 40mg/0.4ml syringe SUBCUT SCH (07:40)
[2020-09-18] MEDS: sertraline 25mg tablet PO SCH (07:40)
[2020-09-18] MEDS: dexamethasone 4mg tablet PO SCH (07:40)
[2020-09-18] MEDS: divalproex sod 250mg ER (24-hour) tablet PO SCH (07:40)
[2020-09-18 09:35] VITALS: BP 121/56
[2020-09-18 14:00] VITALS: BP 111/56
[2020-09-18 18:00] VITALS: BP 126/55
--- NOTE | 2020-09-18 18:23 | NUR ---
Patient in room ORTHO 4009. I have received report from HYACINTH Adame and had the opportunity to ask questions and assume patient care.
[2020-09-18 22:00] VITALS: BP 126/74
--- NOTE | 2020-09-19 06:19 | NUR ---
Problems reprioritized. Patient report given, questions answered & plan of care reviewed with HYACINTH Sanchez.
[2020-09-19 06:53] VITALS: BP 124/69
[2020-09-19] MEDS: enoxaparin 40mg/0.4ml syringe SUBCUT SCH (07:38)
[2020-09-19] MEDS: donepezil 5mg tablet PO SCH (07:38)
[2020-09-19] MEDS: dexamethasone 4mg tablet PO SCH (07:39)
[2020-09-19] MEDS: sertraline 25mg tablet PO SCH (07:39)
[2020-09-19] MEDS: prazosin 1mg capsule PO SCH ×2 (07:39→20:00)
[2020-09-19] MEDS: OLANZAPINE 5 MG TABLET PO SCH ×2 (07:39→19:44)
[2020-09-19] MEDS: divalproex sod 250mg ER (24-hour) tablet PO SCH (07:41)
[2020-09-19 11:33] VITALS: BP 119/45
[2020-09-19] MEDS: lactose-reduced food (Ensure Enlive) - 237ml bottle PO SCH (12:00)
[2020-09-19 14:00] VITALS: BP 130/87
--- NOTE | 2020-09-19 14:38 | NUR ---
F/u 2/: Pt AOx1 PO continues to fluctuate though slightly improving more consistently ~50% avg meals w/ additional magic cup thickened shake and magic cup daily. Ensure Enlive verified this AM and pt to start receiving nectar thick ONS at dinner tonight. LBM 2/4. Will continue to monitor for ONS acceptance and additional protein/kcal needs this admit. Recommendations: 1) Continue pureed/nectar thick diet w/ feeder per ST recs; encourage PO 2) Continue vanilla yogurt WB, Magic Cup WL, [place] thickened shake WS; encourage PO 3) nectar thick ensure enlive TIDWM; encourage PO 4) Routine bowel care 5) Scaled weight this admit Addendum: 09/19/20 at [address] Amended: Links added.
[2020-09-19 18:00] VITALS: BP 124/51
[2020-09-19 19:55] VITALS: BP 93/50
[2020-09-19 22:00] VITALS: BP 95/56
[2020-09-20 02:00] VITALS: BP 108/46
[2020-09-20 06:10] VITALS: BP 115/41
[2020-09-20 07:06] LABS: BASOPHILS # (AUTO) 0.1 X10'3 (0-0.2); BASOPHILS % (AUTO) 0.6 % (0-1); EOSINOPHILS # (AUTO) 0.1 X10'3 (0-0.9); EOSINOPHILS % (AUTO) 1.1 % (0-6); HEMATOCRIT 43.7 % (42.0-52.0); HEMOGLOBIN 14.8 g/dl (14.0-17.9); LYMPHOCYTES # (AUTO) 1.6 X10'3 (1.1-4.8); LYMPHOCYTES % (AUTO) 15.2 % (21-51); MEAN CORPUSCULAR HEMOGLOBIN 29.8 PG (27.0-31.0); MEAN CORPUSCULAR HGB CONC 33.9 g/dL (33.0-36.5); MEAN CORPUSCULAR VOLUME 87.9 FL (78-98); MEAN PLATELET VOLUME 10.2 FL (7.4-10.4); MONOCYTES % (AUTO) 9.9 % (2-12); NEUTROPHILS # (AUTO) 7.6 X10'3 (1.8-7.7); NEUTROPHILS % (AUTO) 73.2 % (42-75); PLATELET COUNT 202 X10'3 (140-440); RED BLOOD COUNT 4.97 X10'6 (4.70-6.10); RED CELL DISTRIBUTION WIDTH 14.3 % (11.5-14.5); WHITE BLOOD COUNT 10.3 X10'3 (4.5-11.0)
[2020-09-20 07:22] LABS: ALANINE AMINOTRANSFERASE 51 U/L (12-78); ALBUMIN 2.9 G/DL (3.4-5.0); ALKALINE PHOSPHATASE 96 IU/L (46-116); ANION GAP 9 (8-16); ASPARTATE AMINO TRANSFERASE 14 U/L (10-37); BILIRUBIN,TOTAL 0.6 MG/DL (0.1-1.0); BLOOD UREA NITROGEN 16 MG/DL (7-18); BUN/CREATININE RATIO 26.2 (5.4-32.0); CALCIUM 7.9 MG/DL (8.5-10.1); CHLORIDE 111 MMOL/L (99-107); CREATININE 0.61 MG/DL (0.60-1.10); GLUCOSE 101 MG/DL (70-104); POTASSIUM 4.1 MMOL/L (3.5-5.1); SODIUM 145 MMOL/L (135-145); TOTAL CARBON DIOXIDE 25.2 MMOL/L (24-32); TOTAL PROTEIN 5.9 G/DL (6.4-8.2); eGFR > 90 ML/MIN
[2020-09-20] MEDS: lactose-reduced food (Ensure Enlive) - 237ml bottle PO SCH ×3 (08:00→18:53)
[2020-09-20] MEDS: prazosin 1mg capsule PO SCH ×2 (08:00→18:45)
[2020-09-20] MEDS: enoxaparin 40mg/0.4ml syringe SUBCUT SCH (08:16)
[2020-09-20] MEDS: donepezil 5mg tablet PO SCH (08:16)
[2020-09-20] MEDS: dexamethasone 1mg tablet PO SCH (08:16)
[2020-09-20] MEDS: OLANZAPINE 5 MG TABLET PO SCH ×2 (08:17→21:57)
[2020-09-20] MEDS: sertraline 25mg tablet PO SCH (08:17)
[2020-09-20] MEDS: divalproex sod 250mg ER (24-hour) tablet PO SCH (08:18)
[2020-09-20 10:00] VITALS: BP 113/51
[2020-09-20] MEDS: clonazePAM 0.5mg tablet PO PRN (11:16)
[2020-09-20 18:52] VITALS: BP 100/44
[2020-09-20 22:00] VITALS: BP 152/55
--- NOTE | 2020-09-21 06:03 | NUR ---
reported to days. noted pt incont urine - has not voided since midnight. triad cream in eladio area improving from last week. bed alarm activated
[2020-09-21 06:10] VITALS: BP 170/48
[2020-09-21] MEDS: donepezil 5mg tablet PO SCH (07:31)
[2020-09-21] MEDS: enoxaparin 40mg/0.4ml syringe SUBCUT SCH (07:31)
[2020-09-21] MEDS: dexamethasone 1mg tablet PO SCH (07:31)
[2020-09-21] MEDS: OLANZAPINE 5 MG TABLET PO SCH ×2 (07:31→21:16)
[2020-09-21] MEDS: clonazePAM 0.5mg tablet PO PRN (07:31)
[2020-09-21] MEDS: prazosin 1mg capsule PO SCH ×2 (07:31→20:00)
[2020-09-21] MEDS: divalproex sod 250mg ER (24-hour) tablet PO SCH (07:31)
[2020-09-21] MEDS: sertraline 25mg tablet PO SCH (07:31)
[2020-09-21] MEDS: lactose-reduced food (Ensure Enlive) - 237ml bottle PO SCH ×3 (08:00→19:00)
[2020-09-21 10:00] VITALS: BP 106/43
[2020-09-21 14:00] VITALS: BP 107/44
--- NOTE | 2020-09-21 16:17 | NUR ---
Patient report given to Carmen on Med-surg. Paged Dr. Garnica about the Dr. notes that say patient is a full code, he is aware.
--- NOTE | 2020-09-21 18:10 | NUR ---
Problems reprioritized. Patient report given, questions answered & plan of care reviewed with Zaki CLAROS.
--- NOTE | 2020-09-21 18:30 | NUR ---
Patient in room DELMER 356. I have received report from RON CLAROS and had the opportunity to ask questions and assume patient care.
[2020-09-21 20:00] VITALS: BP 94/59
[2020-09-22] VITALS: BP 107/52
[2020-09-22] MEDS: HYDROcodone/acetaminophen 5mg/325mg tablet PO PRN ×2 (01:28→23:51)
--- NOTE | 2020-09-22 06:27 | NUR ---
Problems reprioritized. Patient report given, questions answered & plan of care reviewed with HEIDY CLAROS.
--- NOTE | 2020-09-22 06:40 | NUR ---
Patient in room DELMER 356A. I have received report from ED WARD RN and had the opportunity to ask questions and assume patient care.
[2020-09-22] MEDS ORDERED: FLU VACC QS2020-21(6MOS UP)/PF 60 MCG/0.5 ML SYRINGE IMVAC ONE (07:20)
[2020-09-22] MEDS ORDERED: pneumococcal 23-VAL P-sac vacc 25 mcg/0.5ml vial IMVAC ONE (07:20)
[2020-09-22] MEDS: lactose-reduced food (Ensure Enlive) - 237ml bottle PO SCH ×3 (08:00→18:26)
[2020-09-22 11:00] VITALS: BP 118/67
[2020-09-22] MEDS: sertraline 25mg tablet PO SCH (13:05)
[2020-09-22] MEDS: OLANZAPINE 5 MG TABLET PO SCH ×2 (13:05→21:11)
[2020-09-22] MEDS: prazosin 1mg capsule PO SCH ×2 (13:05→20:00)
[2020-09-22] MEDS: dexamethasone 1mg tablet PO SCH (13:05)
[2020-09-22] MEDS: donepezil 5mg tablet PO SCH (13:05)
[2020-09-22] MEDS: enoxaparin 40mg/0.4ml syringe SUBCUT SCH (13:06)
[2020-09-22] MEDS: divalproex sod 250mg ER (24-hour) tablet PO SCH (13:06)
--- NOTE | 2020-09-22 15:40 | NUR ---
F/u 09/22: Pt PO steadily improving 100% avg nectar thick ensure enlives and 60-75% avg pureed/nectar thick meals meeting needs. LBM 09/16; LUZMARIA d/w RN regarding routine bowel care if MD agreeable since non this admit. Will continue to monitor. Recommendations: 1) Continue pureed/nectar thick diet w/ feeder per ST recs; encourage PO 2) Continue vanilla yogurt WB, Magic Cup WL, [place] thickened shake WS; encourage PO 3) nectar thick ensure enlive TIDWM; encourage PO 4) Routine bowel care 5) Scaled weight this admit Addendum: 09/22/20 at [address] Amended: Links added.
--- NOTE | 2020-09-22 16:53 | NUR ---
ATTEMPTED TO GIVE MILK OF MAGNESIA, PATIENT RESISTED AND PUSHED THIS NURSE AWAY, WILL PASS TO NEXT SHIFT
--- NOTE | 2020-09-22 18:27 | NUR ---
Problems reprioritized. Patient report given, questions answered & plan of care reviewed with ED WARD RN.
--- NOTE | 2020-09-22 18:30 | NUR ---
Patient in room DELMER 356. I have received report from HEIDY CLAROS and had the opportunity to ask questions and assume patient care.
[2020-09-22] MEDS: clonazePAM 0.5mg tablet PO PRN (21:11)
[2020-09-23] VITALS: BP 167/49
--- NOTE | 2020-09-23 06:26 | NUR ---
Problems reprioritized. Patient report given, questions answered & plan of care reviewed with JAMIE CLAROS.
[2020-09-23 07:45] VITALS: BP 114/72
[2020-09-23] MEDS: prazosin 1mg capsule PO SCH ×2 (08:33→19:39)
[2020-09-23] MEDS: donepezil 5mg tablet PO SCH (08:33)
[2020-09-23] MEDS: sertraline 25mg tablet PO SCH (08:33)
[2020-09-23] MEDS: enoxaparin 40mg/0.4ml syringe SUBCUT SCH (08:33)
[2020-09-23] MEDS: divalproex sod 250mg ER (24-hour) tablet PO SCH (08:33)
[2020-09-23] MEDS: lactose-reduced food (Ensure Enlive) - 237ml bottle PO SCH ×3 (08:37→18:08)
[2020-09-23] MEDS: OLANZapine 5mg rapidly disint. tablet PO SCH ×2 (10:25→20:57)
[2020-09-23 11:40] VITALS: BP 90/74
[2020-09-23] MEDS ORDERED: bisacodyl 10mg suppository rectal RC STA (12:08)
--- NOTE | 2020-09-23 18:17 | NUR ---
Problems reprioritized. Patient report given, questions answered & plan of care reviewed with HYACINTH TAPIA.
--- NOTE | 2020-09-23 19:33 | NUR ---
promotional table spacer promotional table spacer Page Sent promotional table spacer PAGER ID: [phone] MESSAGE: jarrett. this is ivy at [phone] - can I have PO Ativan for 356A? He has IV ordered, but has order to leave PIV out. thanks (122 character message out of a maximum of 240) Close [X] Send Another Page Thank you for visiting [facility] promotional table spacer promotional table spacer Addendum: 09/23/20 at 1935 by Ivy García RN called back and placed order for BID Klonopin and 1mg PO Ativan, if Klonopin ineffective.
[2020-09-23 19:37] VITALS: BP 100/43
[2020-09-23] MEDS: clonazePAM 0.5mg tablet PO PRN (20:57)
[2020-09-24 00:26] VITALS: BP 98/46
--- NOTE | 2020-09-24 06:17 | NUR ---
Problems reprioritized. Patient report given, questions answered & plan of care reviewed with HYACINTH Palacios.
[2020-09-24] MEDS: LORazepam 1 MG tablet PO PRN (07:06)
[2020-09-24] MEDS: sertraline 25mg tablet PO SCH (07:14)
[2020-09-24] MEDS: divalproex sod 250mg ER (24-hour) tablet PO SCH (07:14)
[2020-09-24] MEDS: prazosin 1mg capsule PO SCH ×2 (07:14→20:17)
[2020-09-24] MEDS: donepezil 5mg tablet PO SCH (07:14)
[2020-09-24] MEDS: OLANZapine 5mg rapidly disint. tablet PO SCH ×2 (07:15→20:17)
[2020-09-24] MEDS: enoxaparin 40mg/0.4ml syringe SUBCUT SCH (07:15)
--- NOTE | 2020-09-24 07:18 | NUR ---
patient started getting very agitated, was able to get him to take his ativan PO. attempted to give sertraline, and donepezil and he spit it all over the floor. Will attempt to give AM meds again when he calms down.
[2020-09-24 07:45] VITALS: BP 129/57
[2020-09-24] MEDS ORDERED: bisacodyl 10mg suppository rectal RC PRN (08:00)
[2020-09-24] MEDS: lactose-reduced food (Ensure Enlive) - 237ml bottle PO SCH ×3 (08:00→18:00)
[2020-09-24 11:44] VITALS: BP 101/57
--- NOTE | 2020-09-24 18:29 | NUR ---
Problems reprioritized. Patient report given, questions answered & plan of care reviewed with HYACINTH Haynes.
[2020-09-24 20:00] VITALS: BP 138/73
[2020-09-24] MEDS: clonazePAM 0.5mg tablet PO PRN (20:17)
[2020-09-25] VITALS: BP 135/76
[2020-09-25] MEDS: LORazepam 1 MG tablet PO PRN (01:19)
--- NOTE | 2020-09-25 06:21 | NUR ---
Problems reprioritized. Patient report given, questions answered & plan of care reviewed with HYACINTH Cain.
--- NOTE | 2020-09-25 06:28 | NUR ---
Patient in room DEL[facility] 356. I have received report from Ivy CLAROS and had the opportunity to ask questions and assume patient care.
[2020-09-25 07:00] VITALS: BP 131/110
[2020-09-25] MEDS: lactose-reduced food (Ensure Enlive) - 237ml bottle PO SCH ×3 (08:00→19:00)
[2020-09-25] MEDS: sertraline 25mg tablet PO SCH (09:30)
[2020-09-25] MEDS: clonazePAM 0.5mg tablet PO PRN (09:30)
[2020-09-25] MEDS: prazosin 1mg capsule PO SCH ×2 (09:31→20:55)
[2020-09-25] MEDS: donepezil 5mg tablet PO SCH (09:31)
[2020-09-25] MEDS: divalproex sod 250mg ER (24-hour) tablet PO SCH (09:31)
[2020-09-25] MEDS: enoxaparin 40mg/0.4ml syringe SUBCUT SCH (09:32)
[2020-09-25 11:00] VITALS: BP 130/53
[2020-09-25] MEDS: OLANZapine 5mg rapidly disint. tablet PO SCH ×3 (12:30→20:37)
[2020-09-25] MEDS ORDERED: haloperidol lactate 5mg/ml inj IM ONE (12:45)
--- NOTE | 2020-09-25 12:46 | NUR ---
Patient was very agitated today, screaming, trying to kick me and other nursing staff, kicking the bed rails. Patient won't listen to my instruction, I tried to give Zyprexa pill with apple sause and he hit my hand pushing away the medicine and he spit it out. I let Dr. Medley know about patient's behavior, received order to give Haldol 5mg IM x 1. We will need assistance of security to hold him so I can give the medicine safely.
--- NOTE | 2020-09-25 13:05 | NUR ---
Patient still agitated tying to get up from bed, hitting his leg on the rails, 2 security personnel came to hold the patient's arms and legs so I could give the Haldol IM.
--- NOTE | 2020-09-25 13:29 | NUR ---
Patient calm, sleepy at this time after Haldol IM was administered.
--- NOTE | 2020-09-25 15:30 | NUR ---
Patient has not peed yet as of this time and also did not ate breakfast and lunch, bladder scan showed 187 ml.
--- NOTE | 2020-09-25 17:18 | NUR ---
PAGER ID: [phone] MESSAGE: [address] Lane CLAROS ext [phone]. RE: Diego Salinas. Patient urinated once early this am and has not peed yet since then. Patient refusing to eat and drink today.
--- NOTE | 2020-09-25 18:15 | NUR ---
Problems reprioritized. Patient report given, questions answered & plan of care reviewed with Orquidea CLAROS.
--- NOTE | 2020-09-25 18:30 | NUR ---
Patient in room DELMER 356. I have received report from DL CLAROS and had the opportunity to ask questions and assume patient care.
[2020-09-25 19:00] VITALS: BP 118/50
[2020-09-26] VITALS: BP 112/58
--- NOTE | 2020-09-26 06:49 | NUR ---
Problems reprioritized. Patient report given, questions answered & plan of care reviewed with KYMBERLY CLAROS.
--- NOTE | 2020-09-26 06:50 | NUR ---
Patient in room [facility]MER 356. I have received report from Zaik CLAROS and had the opportunity to ask questions and assume patient care.
[2020-09-26 08:00] VITALS: BP 124/57
[2020-09-26] MEDS: lactose-reduced food (Ensure Enlive) - 237ml bottle PO SCH ×3 (08:00→18:00)
[2020-09-26] MEDS: enoxaparin 40mg/0.4ml syringe SUBCUT SCH (10:20)
[2020-09-26] MEDS: divalproex sod 250mg ER (24-hour) tablet PO SCH (10:20)
[2020-09-26] MEDS: prazosin 1mg capsule PO SCH ×2 (10:21→20:00)
[2020-09-26] MEDS: sertraline 25mg tablet PO SCH (10:21)
[2020-09-26] MEDS: OLANZapine 5mg rapidly disint. tablet PO SCH ×2 (10:21→22:37)
[2020-09-26] MEDS: donepezil 5mg tablet PO SCH (10:21)
[2020-09-26 12:00] VITALS: BP 117/60
--- NOTE | 2020-09-26 18:30 | NUR ---
Problems reprioritized. Patient report given, questions answered & plan of care reviewed with Leena CLAROS.
[2020-09-26 19:00] VITALS: BP 124/71
[2020-09-27] VITALS: BP 120/55
[2020-09-27] MEDS: LORazepam 1 MG tablet PO PRN (01:57)
[2020-09-27 06:29] LABS: BASOPHILS % (AUTO) 0.4 % (0-1); EOSINOPHILS # (AUTO) 0.1 X10'3 (0-0.9); EOSINOPHILS % (AUTO) 0.9 % (0-6); HEMATOCRIT 44.6 % (42.0-52.0); HEMOGLOBIN 15.1 g/dl (14.0-17.9); LYMPHOCYTES # (AUTO) 1.1 X10'3 (1.1-4.8); LYMPHOCYTES % (AUTO) 10.8 % (21-51); MEAN CORPUSCULAR HEMOGLOBIN 29.7 PG (27.0-31.0); MEAN CORPUSCULAR HGB CONC 33.8 g/dL (33.0-36.5); MEAN CORPUSCULAR VOLUME 87.9 FL (78-98); MEAN PLATELET VOLUME 9.8 FL (7.4-10.4); MONOCYTES # (AUTO) 0.9 X10'3 (0-0.9); MONOCYTES % (AUTO) 8.7 % (2-12); NEUTROPHILS # (AUTO) 7.8 X10'3 (1.8-7.7); NEUTROPHILS % (AUTO) 79.2 % (42-75); PLATELET COUNT 226 X10'3 (140-440); RED BLOOD COUNT 5.07 X10'6 (4.70-6.10); RED CELL DISTRIBUTION WIDTH 14.7 % (11.5-14.5); WHITE BLOOD COUNT 9.8 X10'3 (4.5-11.0)
--- NOTE | 2020-09-27 06:41 | NUR ---
Patient in room [facility] 356. I have received report from Sari CLAROS and had the opportunity to ask questions and assume patient care.
[2020-09-27 07:20] VITALS: BP_SYST 106; BP_SYST 115; BP_DIAS 64; BP_DIAS 71
[2020-09-27 07:21] LABS: ALANINE AMINOTRANSFERASE 32 U/L (12-78); ALBUMIN/GLOBULIN RATIO 0.8 (1.1-1.5); ALKALINE PHOSPHATASE 108 IU/L (46-116); ANION GAP 9 (8-16); ASPARTATE AMINO TRANSFERASE 16 U/L (10-37); BILIRUBIN,TOTAL 0.6 MG/DL (0.1-1.0); BLOOD UREA NITROGEN 19 MG/DL (7-18); BUN/CREATININE RATIO 27.1 (5.4-32.0); CALCIUM 9.1 MG/DL (8.5-10.1); CHLORIDE 113 MMOL/L (99-107); GLUCOSE 111 MG/DL (70-104); MAGNESIUM 2.1 MG/DL (1.5-2.4); PHOSPHORUS 3.3 MG/DL (2.3-4.5); POTASSIUM 4.2 MMOL/L (3.5-5.1); SODIUM 148 MMOL/L (135-145); TOTAL CARBON DIOXIDE 25.8 MMOL/L (24-32); TOTAL PROTEIN 6.6 G/DL (6.4-8.2); eGFR > 90 ML/MIN
[2020-09-27] MEDS: lactose-reduced food (Ensure Enlive) - 237ml bottle PO SCH ×3 (08:00→18:57)
[2020-09-27] MEDS: divalproex sod 250mg ER (24-hour) tablet PO SCH (09:27)
[2020-09-27] MEDS: sertraline 25mg tablet PO SCH (09:27)
[2020-09-27] MEDS: OLANZapine 5mg rapidly disint. tablet PO SCH ×2 (09:29→20:42)
[2020-09-27] MEDS: donepezil 5mg tablet PO SCH (09:29)
[2020-09-27] MEDS: prazosin 1mg capsule PO SCH ×2 (09:30→20:42)
[2020-09-27] MEDS: enoxaparin 40mg/0.4ml syringe SUBCUT SCH (09:31)
[2020-09-27 12:00] VITALS: BP 147/56
[2020-09-27 18:00] VITALS: BP 119/53
--- NOTE | 2020-09-27 18:20 | NUR ---
Patient in room DELMER 356A. I have received report from HYACINTH Romero and had the opportunity to ask questions and assume patient care.
--- NOTE | 2020-09-27 18:30 | NUR ---
Problems reprioritized. Patient report given, questions answered & plan of care reviewed with Claduia CLAROS.
--- NOTE | 2020-09-28 01:04 | NUR ---
Patient in room DELMER 356. I have received report from Claudia CLAROS and had the opportunity to ask questions and assume patient care.
--- NOTE | 2020-09-28 01:07 | NUR ---
Problems reprioritized. Patient report given, questions answered & plan of care reviewed with HYACINTH Wright.
--- NOTE | 2020-09-28 06:14 | NUR ---
Problems reprioritized. Patient report given, questions answered & plan of care reviewed with Carmen CLAROS.
--- NOTE | 2020-09-28 06:50 | NUR ---
I have received report from NOC RN and had the opportunity to ask questions and assume patient care.
[2020-09-28 07:18] VITALS: BP 127/64
[2020-09-28] MEDS: enoxaparin 40mg/0.4ml syringe SUBCUT SCH (08:04)
[2020-09-28] MEDS: donepezil 5mg tablet PO SCH (08:05)
[2020-09-28] MEDS: lactose-reduced food (Ensure Enlive) - 237ml bottle PO SCH ×3 (08:07→18:35)
[2020-09-28 08:25] LABS: ALANINE AMINOTRANSFERASE 28 U/L (12-78); ALBUMIN 2.9 G/DL (3.4-5.0); ALBUMIN/GLOBULIN RATIO 0.9 (1.1-1.5); ALKALINE PHOSPHATASE 103 IU/L (46-116); ANION GAP 10 (8-16); ASPARTATE AMINO TRANSFERASE 10 U/L (10-37); BILIRUBIN,TOTAL 0.5 MG/DL (0.1-1.0); BLOOD UREA NITROGEN 18 MG/DL (7-18); BUN/CREATININE RATIO 26.9 (5.4-32.0); CALCIUM 9.1 MG/DL (8.5-10.1); CHLORIDE 113 MMOL/L (99-107); CREATININE 0.67 MG/DL (0.60-1.10); GLUCOSE 108 MG/DL (70-104); POTASSIUM 3.8 MMOL/L (3.5-5.1); SODIUM 149 MMOL/L (135-145); TOTAL CARBON DIOXIDE 25.8 MMOL/L (24-32); TOTAL PROTEIN 6.3 G/DL (6.4-8.2); eGFR > 90 ML/MIN
--- NOTE | 2020-09-28 08:51 | NUR ---
Patient not taking his pills this AM, will continue to try. MD aware. Will encourage free water 250ml Q4H for elevating NA+ level.
[2020-09-28] MEDS: LORazepam 1 MG tablet PO PRN (08:57)
[2020-09-28] MEDS: OLANZapine 5mg rapidly disint. tablet PO SCH ×2 (09:02→20:48)
[2020-09-28] MEDS: sertraline 25mg tablet PO SCH (09:05)
[2020-09-28] MEDS: divalproex sod 250mg ER (24-hour) tablet PO SCH (09:05)
[2020-09-28] MEDS: prazosin 1mg capsule PO SCH ×2 (09:05→20:47)
[2020-09-28 11:00] VITALS: BP 109/63
--- NOTE | 2020-09-28 16:09 | NUR ---
Reassessment: Patient's PO intake fluctuates with average 25-50% with occasional 50-75% PO intake and meal refusals. PO intake of ONS averages 65% with the last 8 consumed. Pt continues to be documented to be receiving total assistance with meals. LBM 09/25, still not with routine bowel care, PRN bowel care available. D/w dietary to send thickened prune juice with dinner tonight for bowel regularity. Will continue to follow closely and make recommendations as appropriate. Recommendations: 1) Continue pureed/nectar thick diet w/ feeder per ST recs; encourage PO 2) Continue vanilla yogurt WB, Magic Cup WL, [place] thickened shake WS; encourage PO 3) [place] thick Ensure Enlive TIDWM; encourage PO 4) Routine bowel care 5) Scaled weight this admit Addendum: 09/28/20 at [address] Amended: Links added.
[2020-09-28 19:32] VITALS: BP 120/63
[2020-09-28] MEDS: LORazepam 1 MG tablet PO SCH (20:48)
[2020-09-29] VITALS: BP 126/57
[2020-09-29] MEDS: LORazepam 1 MG tablet PO SCH ×4 (00:10→23:59)
[2020-09-29 06:26] LABS: BASOPHILS % (AUTO) 0.2 % (0-1); EOSINOPHILS % (AUTO) 0.3 % (0-6); HEMATOCRIT 47.2 % (42.0-52.0); HEMOGLOBIN 15.7 g/dl (14.0-17.9); LYMPHOCYTES # (AUTO) 0.8 X10'3 (1.1-4.8); LYMPHOCYTES % (AUTO) 6.7 % (21-51); MEAN CORPUSCULAR HEMOGLOBIN 29.8 PG (27.0-31.0); MEAN CORPUSCULAR HGB CONC 33.2 g/dL (33.0-36.5); MEAN CORPUSCULAR VOLUME 89.8 FL (78-98); MEAN PLATELET VOLUME 9.7 FL (7.4-10.4); MONOCYTES # (AUTO) 0.8 X10'3 (0-0.9); MONOCYTES % (AUTO) 7.1 % (2-12); NEUTROPHILS % (AUTO) 85.7 % (42-75); PLATELET COUNT 217 X10'3 (140-440); RED BLOOD COUNT 5.26 X10'6 (4.70-6.10); RED CELL DISTRIBUTION WIDTH 14.5 % (11.5-14.5); WHITE BLOOD COUNT 11.7 X10'3 (4.5-11.0)
[2020-09-29 06:39] LABS: ALANINE AMINOTRANSFERASE 28 U/L (12-78); ALBUMIN 3.2 G/DL (3.4-5.0); ALBUMIN/GLOBULIN RATIO 0.9 (1.1-1.5); ALKALINE PHOSPHATASE 111 IU/L (46-116); ANION GAP 11 (8-16); ASPARTATE AMINO TRANSFERASE 16 U/L (10-37); BILIRUBIN,TOTAL 0.6 MG/DL (0.1-1.0); BLOOD UREA NITROGEN 20 MG/DL (7-18); BUN/CREATININE RATIO 22.7 (5.4-32.0); CALCIUM 9.3 MG/DL (8.5-10.1); CHLORIDE 117 MMOL/L (99-107); CREATININE 0.88 MG/DL (0.60-1.10); GLUCOSE 116 MG/DL (70-104); SODIUM 153 MMOL/L (135-145); TOTAL CARBON DIOXIDE 24.6 MMOL/L (24-32); TOTAL PROTEIN 6.6 G/DL (6.4-8.2); eGFR 86 ML/MIN
--- NOTE | 2020-09-29 07:47 | NUR ---
Patient in room DELMER 356. I have received report from Aysha CLAROS and had the opportunity to ask questions and assume patient care.
[2020-09-29] MEDS: lactose-reduced food (Ensure Enlive) - 237ml bottle PO SCH ×3 (08:00→18:21)
[2020-09-29] MEDS: prazosin 1mg capsule PO SCH ×2 (08:02→20:10)
[2020-09-29] MEDS: donepezil 5mg tablet PO SCH (08:02)
[2020-09-29] MEDS: divalproex sod 250mg ER (24-hour) tablet PO SCH (08:02)
[2020-09-29] MEDS: sertraline 25mg tablet PO SCH (08:02)
[2020-09-29] MEDS: OLANZapine 5mg rapidly disint. tablet PO SCH ×2 (08:02→20:10)
[2020-09-29] MEDS: enoxaparin 40mg/0.4ml syringe SUBCUT SCH (08:06)
[2020-09-29 11:00] VITALS: BP 117/62
[2020-09-29 11:34] VITALS: BP 117/62
--- NOTE | 2020-09-29 12:13 | NUR ---
Patient in room DELMER 356. I have received report from Alexis LY and had the opportunity to ask questions and assume patient care.
[2020-09-29] MEDS: dextrose 5%-water 1,000 ML IV SCH ×2 (16:51→20:35)
[2020-09-29 17:21] VITALS: BP 130/71
--- NOTE | 2020-09-29 17:44 | NUR ---
5F DUAL LUMEN MIDLINE PLACEMENT TO RIGHT BASILIC VEIN X'S 1 ATTEMPT WITH SUCCESS USING ULTRASOUND GUIDANCE. TIP ENDS MID-AXILLARY, BOTH LUMENS ASPIRATE BLOOD AND FLUSH WITHOUT DIFFICULTY. Aliyah MADRID PICC RN
--- NOTE | 2020-09-29 18:20 | NUR ---
Patient in room DELMER 356A. I have received report from HYACINTH Perez and had the opportunity to ask questions and assume patient care.
[2020-09-29] MEDS ORDERED: acetaminophen 650mg rectal suppository RC PRN (19:10)
[2020-09-29 20:00] VITALS: BP 121/66
[2020-09-29] MEDS: CefTRIAXone/D5W-Rocephin 1gm 50 ML IV SCH (20:10)
[2020-09-29 23:54] VITALS: BP 104/55
--- NOTE | 2020-09-30 00:38 | NUR ---
Problems reprioritized. Patient report given, questions answered & plan of care reviewed with Gabriela Mcgill RN.
--- NOTE | 2020-09-30 00:40 | NUR ---
Patient in room DELMER 356. I have received report from HYACINTH Taylor and had the opportunity to ask questions and assume patient care.
[2020-09-30] MEDS: dextrose 5%-water 1,000 ML IV SCH ×2 (03:31→14:07)
[2020-09-30 06:07] LABS: BASOPHILS % (AUTO) 0.3 % (0-1); EOSINOPHILS % (AUTO) 0.1 % (0-6); HEMATOCRIT 45.1 % (42.0-52.0); HEMOGLOBIN 14.9 g/dl (14.0-17.9); LYMPHOCYTES # (AUTO) 0.9 X10'3 (1.1-4.8); LYMPHOCYTES % (AUTO) 7.3 % (21-51); MEAN CORPUSCULAR HEMOGLOBIN 29.7 PG (27.0-31.0); MEAN CORPUSCULAR VOLUME 90.1 FL (78-98); MEAN PLATELET VOLUME 10.1 FL (7.4-10.4); MONOCYTES # (AUTO) 0.8 X10'3 (0-0.9); MONOCYTES % (AUTO) 6.4 % (2-12); NEUTROPHILS # (AUTO) 10.3 X10'3 (1.8-7.7); NEUTROPHILS % (AUTO) 85.9 % (42-75); PLATELET COUNT 173 X10'3 (140-440); RED BLOOD COUNT 5.01 X10'6 (4.70-6.10); RED CELL DISTRIBUTION WIDTH 14.6 % (11.5-14.5)
[2020-09-30 06:19] LABS: ALANINE AMINOTRANSFERASE 29 U/L (12-78); ALBUMIN 2.7 G/DL (3.4-5.0); ALBUMIN/GLOBULIN RATIO 0.8 (1.1-1.5); ALKALINE PHOSPHATASE 93 IU/L (46-116); ANION GAP 8 (8-16); ASPARTATE AMINO TRANSFERASE 13 U/L (10-37); BILIRUBIN,TOTAL 0.7 MG/DL (0.1-1.0); BLOOD UREA NITROGEN 20 MG/DL (7-18); BUN/CREATININE RATIO 23.3 (5.4-32.0); CALCIUM 8.5 MG/DL (8.5-10.1); CHLORIDE 113 MMOL/L (99-107); CREATININE 0.86 MG/DL (0.60-1.10); GLUCOSE 154 MG/DL (70-104); SODIUM 149 MMOL/L (135-145); TOTAL CARBON DIOXIDE 28.2 MMOL/L (24-32); TOTAL PROTEIN 6.1 G/DL (6.4-8.2); eGFR 88 ML/MIN
--- NOTE | 2020-09-30 06:30 | NUR ---
Problems reprioritized. Patient report given, questions answered & plan of care reviewed with HYACINTH Sauer.
--- NOTE | 2020-09-30 06:35 | NUR ---
Patient in room DELMER 356. I have received report from Gabriela Mcgill RN and had the opportunity to ask questions and assume patient care.
--- NOTE | 2020-09-30 06:43 | NUR ---
Patient in room DELMER 356. I have received report from Gabriela Bingahm RN and had the opportunity to ask questions and assume patient care.
[2020-09-30 07:00] VITALS: BP 168/41
[2020-09-30] MEDS: divalproex sod 250mg ER (24-hour) tablet PO SCH (08:13)
[2020-09-30] MEDS: sertraline 25mg tablet PO SCH (08:14)
[2020-09-30] MEDS: donepezil 5mg tablet PO SCH (08:15)
[2020-09-30] MEDS: prazosin 1mg capsule PO SCH ×2 (08:15→20:00)
[2020-09-30] MEDS: CefTRIAXone/D5W-Rocephin 1gm 50 ML IV SCH (08:15)
[2020-09-30] MEDS: LORazepam 1 MG tablet PO SCH ×2 (08:15→17:12)
[2020-09-30] MEDS: enoxaparin 40mg/0.4ml syringe SUBCUT SCH (08:17)
[2020-09-30] MEDS: OLANZapine 5mg rapidly disint. tablet PO SCH ×2 (08:28→21:00)
[2020-09-30] MEDS: lactose-reduced food (Ensure Enlive) - 237ml bottle PO SCH ×3 (08:32→18:43)
[2020-09-30 12:15] VITALS: BP 124/35
[2020-09-30 18:00] VITALS: BP 95/52
--- NOTE | 2020-09-30 18:37 | NUR ---
patient seen by Dr Garnica and visited by . Combative this am, with aide ,but a spent time with patient and able to administer meds and 25% of breakfast. patient incontinent of stool and urine. All cares given. Report given to Gabriela Mcgill RN
[2020-09-30 19:00] VITALS: BP 95/52
[2020-09-30] MEDS: lactobacillus rhamnosus 10,000 MMU CELLS/CAPSULE PO SCH (20:00)
[2020-10-01] MEDS: dextrose 5%-water 1,000 ML IV SCH ×3 (00:20→20:20)
[2020-10-01] MEDS: LORazepam 1 MG tablet PO SCH ×3 (02:12→16:34)
[2020-10-01 02:30] VITALS: BP 101/48
--- NOTE | 2020-10-01 06:39 | NUR ---
Problems reprioritized. Patient report given, questions answered & plan of care reviewed with HYACINTH Duran.
[2020-10-01 07:04] LABS: BASOPHILS % (AUTO) 0.4 % (0-1); EOSINOPHILS # (AUTO) 0.2 X10'3 (0-0.9); EOSINOPHILS % (AUTO) 2.3 % (0-6); HEMATOCRIT 39.7 % (42.0-52.0); HEMOGLOBIN 13.4 g/dl (14.0-17.9); LYMPHOCYTES # (AUTO) 1.2 X10'3 (1.1-4.8); LYMPHOCYTES % (AUTO) 13.7 % (21-51); MEAN CORPUSCULAR HEMOGLOBIN 29.9 PG (27.0-31.0); MEAN CORPUSCULAR HGB CONC 33.8 g/dL (33.0-36.5); MEAN CORPUSCULAR VOLUME 88.4 FL (78-98); MEAN PLATELET VOLUME 10.4 FL (7.4-10.4); MONOCYTES # (AUTO) 0.7 X10'3 (0-0.9); MONOCYTES % (AUTO) 7.7 % (2-12); NEUTROPHILS # (AUTO) 6.6 X10'3 (1.8-7.7); NEUTROPHILS % (AUTO) 75.9 % (42-75); PLATELET COUNT 153 X10'3 (140-440); RED CELL DISTRIBUTION WIDTH 14.6 % (11.5-14.5); WHITE BLOOD COUNT 8.7 X10'3 (4.5-11.0)
[2020-10-01 07:31] LABS: ALANINE AMINOTRANSFERASE 27 U/L (12-78); ALBUMIN 2.4 G/DL (3.4-5.0); ALBUMIN/GLOBULIN RATIO 0.8 (1.1-1.5); ALKALINE PHOSPHATASE 77 IU/L (46-116); ANION GAP 7 (8-16); ASPARTATE AMINO TRANSFERASE 9 U/L (10-37); BILIRUBIN,TOTAL 0.4 MG/DL (0.1-1.0); BLOOD UREA NITROGEN 16 MG/DL (7-18); BUN/CREATININE RATIO 22.2 (5.4-32.0); CALCIUM 8.2 MG/DL (8.5-10.1); CHLORIDE 107 MMOL/L (99-107); CREATININE 0.72 MG/DL (0.60-1.10); GLUCOSE 95 MG/DL (70-104); POTASSIUM 3.7 MMOL/L (3.5-5.1); SODIUM 143 MMOL/L (135-145); TOTAL CARBON DIOXIDE 28.6 MMOL/L (24-32); TOTAL PROTEIN 5.3 G/DL (6.4-8.2); eGFR > 90 ML/MIN
[2020-10-01 08:00] VITALS: BP 111/47
[2020-10-01] MEDS: lactose-reduced food (Ensure Enlive) - 237ml bottle PO SCH ×3 (08:00→18:12)
[2020-10-01] MEDS: CefTRIAXone/D5W-Rocephin 1gm 50 ML IV SCH (08:21)
[2020-10-01] MEDS: divalproex sod 250mg ER (24-hour) tablet PO SCH (08:23)
[2020-10-01] MEDS: OLANZapine 5mg rapidly disint. tablet PO SCH ×2 (08:23→20:59)
[2020-10-01] MEDS: donepezil 5mg tablet PO SCH (08:23)
[2020-10-01] MEDS: sertraline 25mg tablet PO SCH (08:23)
[2020-10-01] MEDS: prazosin 1mg capsule PO SCH ×2 (08:23→20:59)
[2020-10-01] MEDS: lactobacillus rhamnosus 10,000 MMU CELLS/CAPSULE PO SCH ×2 (08:24→20:59)
[2020-10-01] MEDS: enoxaparin 40mg/0.4ml syringe SUBCUT SCH (08:27)
[2020-10-01 11:00] VITALS: BP 97/46
--- NOTE | 2020-10-01 12:22 | NUR ---
Reassessment: Some improvement in patient's PO intake since last RD assessment (09/28). PO intake of ONS has improved to mostly 100% with total average 81% acceptance over the last 8 offered. With meals and ONS combined, pt met roughly 148% estimated energy needs (EEN) and 100% estimated protein needs (EPN) on 09/29 and 81% EEN and 92% EPN on 09/30. Pending documentation for PO intake of meals today though pt documented to have consumed 100% of ONS this morning. 100% PO intake of ONS TID will meet 63% EEN and 69% EPN, requiring only 25-50% PO intake of meals to meet estimated nutrient needs. Noted that pt receiving D5 at 100 mL/hr d/t elevated serum Na (now WNL) providing an additional 408 kcal. LBM 09/30 documented as small/smear with moderate BM 09/29. Resolution of constipation likely contributing to increasing PO intake. Recommend routine bowel care for bowel regularity. Will continue to follow closely and make recommendations as appropriate. Recommendations: 1) Continue pureed/nectar thick diet w/ feeder per ST recs; encourage PO 2) Continue vanilla yogurt WB, Magic Cup WL, [place] thickened shake WS; encourage PO 3) [place] thick Ensure Enlive TIDWM; encourage PO 4) Routine bowel care 5) Scaled weight this admit Addendum: 10/01/20 at [address] Amended: Links added.
--- NOTE | 2020-10-01 18:34 | NUR ---
Problems reprioritized. Patient report given, questions answered & plan of care reviewed with HYACINTH Morris. Addendum: 10/01/20 at 1842 by Ana Raymond RN Problems reprioritized. Patient report given, questions answered & plan of care reviewed with HYACINTH Haines.
--- NOTE | 2020-10-01 18:35 | NUR ---
Patient in room [facility] 356. I have received report from SANDRA CLAROS and had the opportunity to ask questions and assume patient care.
[2020-10-01 20:00] VITALS: BP 120/68
[2020-10-02] VITALS: BP 97/50
[2020-10-02] MEDS: LORazepam 1 MG tablet PO SCH ×3 (00:25→16:21)
[2020-10-02] MEDS: dextrose 5%-water 1,000 ML IV SCH ×2 (00:26→16:28)
--- NOTE | 2020-10-02 06:05 | NUR ---
Problems reprioritized. Patient report given, questions answered & plan of care reviewed with SANDRA CLAROS.
--- NOTE | 2020-10-02 06:27 | NUR ---
Patient in room [facility] 356. I have received report from HYACINTH Haines and had the opportunity to ask questions and assume patient care.
[2020-10-02 06:42] LABS: BASOPHILS % (AUTO) 0.3 % (0-1); EOSINOPHILS # (AUTO) 0.2 X10'3 (0-0.9); EOSINOPHILS % (AUTO) 2.3 % (0-6); HEMATOCRIT 43.1 % (42.0-52.0); HEMOGLOBIN 14.5 g/dl (14.0-17.9); LYMPHOCYTES # (AUTO) 0.9 X10'3 (1.1-4.8); LYMPHOCYTES % (AUTO) 10.8 % (21-51); MEAN CORPUSCULAR HEMOGLOBIN 29.8 PG (27.0-31.0); MEAN CORPUSCULAR HGB CONC 33.6 g/dL (33.0-36.5); MEAN CORPUSCULAR VOLUME 88.7 FL (78-98); MEAN PLATELET VOLUME 10.2 FL (7.4-10.4); MONOCYTES # (AUTO) 0.5 X10'3 (0-0.9); MONOCYTES % (AUTO) 5.8 % (2-12); NEUTROPHILS # (AUTO) 6.9 X10'3 (1.8-7.7); NEUTROPHILS % (AUTO) 80.8 % (42-75); PLATELET COUNT 166 X10'3 (140-440); RED BLOOD COUNT 4.86 X10'6 (4.70-6.10); RED CELL DISTRIBUTION WIDTH 14.4 % (11.5-14.5); WHITE BLOOD COUNT 8.5 X10'3 (4.5-11.0)
[2020-10-02 07:00] VITALS: BP 92/49
[2020-10-02 07:32] LABS: ALANINE AMINOTRANSFERASE 26 U/L (12-78); ALBUMIN 2.5 G/DL (3.4-5.0); ALBUMIN/GLOBULIN RATIO 0.8 (1.1-1.5); ALKALINE PHOSPHATASE 85 IU/L (46-116); ANION GAP 8 (8-16); ASPARTATE AMINO TRANSFERASE 14 U/L (10-37); BILIRUBIN,TOTAL 0.4 MG/DL (0.1-1.0); BLOOD UREA NITROGEN 14 MG/DL (7-18); BUN/CREATININE RATIO 21.2 (5.4-32.0); CALCIUM 8.8 MG/DL (8.5-10.1); CHLORIDE 107 MMOL/L (99-107); CREATININE 0.66 MG/DL (0.60-1.10); GLUCOSE 90 MG/DL (70-104); POTASSIUM 3.9 MMOL/L (3.5-5.1); SODIUM 143 MMOL/L (135-145); TOTAL CARBON DIOXIDE 27.7 MMOL/L (24-32); TOTAL PROTEIN 5.5 G/DL (6.4-8.2); eGFR > 90 ML/MIN
[2020-10-02 08:00] VITALS: BP 103/52
[2020-10-02] MEDS: prazosin 1mg capsule PO SCH ×2 (08:00→20:00)
[2020-10-02] MEDS: CefTRIAXone/D5W-Rocephin 1gm 50 ML IV SCH (08:05)
[2020-10-02] MEDS: OLANZapine 5mg rapidly disint. tablet PO SCH ×2 (08:09→20:24)
[2020-10-02] MEDS: donepezil 5mg tablet PO SCH (08:09)
[2020-10-02] MEDS: divalproex sod 250mg ER (24-hour) tablet PO SCH (08:10)
[2020-10-02] MEDS: sertraline 25mg tablet PO SCH (08:10)
[2020-10-02] MEDS: lactobacillus rhamnosus 10,000 MMU CELLS/CAPSULE PO SCH ×2 (08:10→20:24)
[2020-10-02] MEDS: enoxaparin 40mg/0.4ml syringe SUBCUT SCH (08:14)
[2020-10-02] MEDS: lactose-reduced food (Ensure Enlive) - 237ml bottle PO SCH ×3 (08:16→18:03)
[2020-10-02 11:41] VITALS: BP 87/49
--- NOTE | 2020-10-02 18:05 | NUR ---
Patient in room [facility] 356. I have received report from Ana CLAROS and had the opportunity to ask questions and assume patient care.
--- NOTE | 2020-10-02 18:18 | NUR ---
Problems reprioritized. Patient report given, questions answered & plan of care reviewed with HYACINTH Vo.
[2020-10-02 20:20] VITALS: BP 92/49
[2020-10-03] VITALS: BP 100/50
[2020-10-03] MEDS: dextrose 5%-water 1,000 ML IV SCH ×3 (00:33→20:50)
[2020-10-03] MEDS: LORazepam 1 MG tablet PO SCH ×3 (01:07→16:36)
--- NOTE | 2020-10-03 06:27 | NUR ---
Problems reprioritized. Patient report given, questions answered & plan of care reviewed with Prasanna RN with Francisca GARCIA.
[2020-10-03 06:48] LABS: BASOPHILS % (AUTO) 0.2 % (0-1); EOSINOPHILS # (AUTO) 0.1 X10'3 (0-0.9); EOSINOPHILS % (AUTO) 2.1 % (0-6); HEMATOCRIT 41.5 % (42.0-52.0); HEMOGLOBIN 14.2 g/dl (14.0-17.9); LYMPHOCYTES # (AUTO) 0.9 X10'3 (1.1-4.8); LYMPHOCYTES % (AUTO) 13.3 % (21-51); MEAN CORPUSCULAR HGB CONC 34.3 g/dL (33.0-36.5); MEAN CORPUSCULAR VOLUME 87.4 FL (78-98); MEAN PLATELET VOLUME 10.1 FL (7.4-10.4); MONOCYTES # (AUTO) 0.5 X10'3 (0-0.9); NEUTROPHILS # (AUTO) 5.5 X10'3 (1.8-7.7); NEUTROPHILS % (AUTO) 77.4 % (42-75); PLATELET COUNT 167 X10'3 (140-440); RED BLOOD COUNT 4.75 X10'6 (4.70-6.10); RED CELL DISTRIBUTION WIDTH 14.4 % (11.5-14.5)
--- NOTE | 2020-10-03 06:49 | NUR ---
Patient in room [facility] 356. I have received report from Gilda CLAROS and had the opportunity to ask questions and assume patient care.
[2020-10-03 06:58] LABS: ALANINE AMINOTRANSFERASE 26 U/L (12-78); ALBUMIN 2.4 G/DL (3.4-5.0); ALBUMIN/GLOBULIN RATIO 0.8 (1.1-1.5); ALKALINE PHOSPHATASE 85 IU/L (46-116); ANION GAP 4 (8-16); ASPARTATE AMINO TRANSFERASE 9 U/L (10-37); BILIRUBIN,TOTAL 0.3 MG/DL (0.1-1.0); BLOOD UREA NITROGEN 15 MG/DL (7-18); BUN/CREATININE RATIO 23.4 (5.4-32.0); CALCIUM 8.6 MG/DL (8.5-10.1); CHLORIDE 104 MMOL/L (99-107); CREATININE 0.64 MG/DL (0.60-1.10); GLUCOSE 91 MG/DL (70-104); POTASSIUM 4.1 MMOL/L (3.5-5.1); SODIUM 138 MMOL/L (135-145); TOTAL CARBON DIOXIDE 29.9 MMOL/L (24-32); TOTAL PROTEIN 5.4 G/DL (6.4-8.2); eGFR > 90 ML/MIN
[2020-10-03 08:00] VITALS: BP 106/44
[2020-10-03] MEDS: lactose-reduced food (Ensure Enlive) - 237ml bottle PO SCH ×3 (08:00→18:42)
[2020-10-03] MEDS: CefTRIAXone/D5W-Rocephin 1gm 50 ML IV SCH (09:13)
[2020-10-03] MEDS: sertraline 25mg tablet PO SCH (09:18)
[2020-10-03] MEDS: divalproex sod 250mg ER (24-hour) tablet PO SCH (09:18)
[2020-10-03] MEDS: prazosin 1mg capsule PO SCH ×2 (09:18→20:17)
[2020-10-03] MEDS: donepezil 5mg tablet PO SCH (09:18)
[2020-10-03] MEDS: lactobacillus rhamnosus 10,000 MMU CELLS/CAPSULE PO SCH ×2 (09:18→20:17)
[2020-10-03] MEDS: enoxaparin 40mg/0.4ml syringe SUBCUT SCH (09:19)
[2020-10-03] MEDS: OLANZapine 5mg rapidly disint. tablet PO SCH ×2 (09:32→20:17)
[2020-10-03 12:00] VITALS: BP 110/65
--- NOTE | 2020-10-03 17:50 | NUR ---
Student documentation: I have reviewed and agree with all interventions, assessments performed and documented by Francisca GARCIA.
--- NOTE | 2020-10-03 18:32 | NUR ---
Problems reprioritized. Patient report given, questions answered & plan of care reviewed with Claudia CLAROS.
--- NOTE | 2020-10-03 18:36 | NUR ---
Patient in room DELMER 356A. I have received report from HYACINTH Mims and had the opportunity to ask questions and assume patient care. Patient resting comfortably, watching TV.
[2020-10-03 19:18] VITALS: BP 118/60
[2020-10-03] MEDS ORDERED: temazepam 15mg capsule PO SCH (21:00)
[2020-10-04 00:01] VITALS: BP 101/53
[2020-10-04] MEDS: LORazepam 1 MG tablet PO SCH ×3 (02:24→16:02)
--- NOTE | 2020-10-04 06:31 | NUR ---
Problems reprioritized. Patient report given, questions answered & plan of care reviewed with HYACINTH Trevino.
--- NOTE | 2020-10-04 06:41 | NUR ---
Patient in room DELMER 356. I have received report from HYACINTH Taylor and had the opportunity to ask questions and assume patient care.
[2020-10-04 07:00] VITALS: BP 98/78
[2020-10-04] MEDS: CefTRIAXone/D5W-Rocephin 1gm 50 ML IV SCH (08:08)
[2020-10-04] MEDS: lactobacillus rhamnosus 10,000 MMU CELLS/CAPSULE PO SCH ×2 (08:09→20:28)
[2020-10-04] MEDS: dextrose 5%-water 1,000 ML IV SCH (08:09)
[2020-10-04] MEDS: divalproex sod 250mg ER (24-hour) tablet PO SCH (08:09)
[2020-10-04] MEDS: donepezil 5mg tablet PO SCH (08:09)
[2020-10-04] MEDS: OLANZapine 5mg rapidly disint. tablet PO SCH ×2 (08:09→20:29)
[2020-10-04] MEDS: sertraline 25mg tablet PO SCH (08:09)
[2020-10-04] MEDS: enoxaparin 40mg/0.4ml syringe SUBCUT SCH (08:10)
[2020-10-04] MEDS: lactose-reduced food (Ensure Enlive) - 237ml bottle PO SCH ×3 (08:19→18:41)
[2020-10-04 12:00] VITALS: BP 90/54
--- NOTE | 2020-10-04 16:03 | NUR ---
Reassessment: Pt PO intake still fluctuating since last RD assessment 10/01 with average PO intake of 25-50% of meals, however consume 100% of dinner last night with 75-100% average PO intake of ONS. Pt still receiving D5W at 100 ml/hr, providing 408kcals. Pt is confused with A/O x 2 per EMR. Pt scaled weight still pending, pt would benefit from scaled weight being taken to monitor weight changes, RD notified bed side nurse. Pt last BM is 10/03, receiving bowel care as needed. Will continue to monitor for further nutrition intervention. Recommendations: 1) Continue pureed/nectar thick diet w/ feeder per ST recs; encourage PO 2) Continue vanilla yogurt WB, Magic Cup WL, [place] thickened shake WS; encourage PO 3) [place] thick Ensure Enlive TIDWM; encourage PO 4) Routine bowel care 5) Scaled weight this admit Addendum: 10/04/20 at [address] RD agree with campus recruiting internship note Addendum: 10/04/20 at 1604 by Damian Burrell IMPROVEMENT MANAGER RD Amended: Links added.
--- NOTE | 2020-10-04 18:30 | NUR ---
Patient in room DEL[facility] 356A. I have received report from HYACINTH Trevino and had the opportunity to ask questions and assume patient care.
--- NOTE | 2020-10-04 18:35 | NUR ---
Problems reprioritized. Patient report given, questions answered & plan of care reviewed with HYACINTH SCOTT.
[2020-10-04 19:25] VITALS: BP 108/58
[2020-10-04] MEDS ORDERED: temazepam 15mg capsule PO PRN (20:00)
[2020-10-04] MEDS: dextrose 5% water 500ml 500 ML IV SCH (20:28)
[2020-10-04] MEDS ORDERED: Melatonin 3mg tablet PO SCH (21:00)
[2020-10-05] MEDS: LORazepam 1 MG tablet PO SCH ×3 (00:45→16:57)
[2020-10-05 00:46] VITALS: BP 95/51
[2020-10-05] MEDS: dextrose 5% water 500ml 500 ML IV SCH ×5 (00:59→21:21)
--- NOTE | 2020-10-05 06:28 | NUR ---
Patient in room [facility] 356. I have received report from HYACINTH SCOTT and had the opportunity to ask questions and assume patient care.
[2020-10-05 07:00] VITALS: BP 98/55
[2020-10-05] MEDS: sertraline 25mg tablet PO SCH (07:44)
[2020-10-05] MEDS: lactobacillus rhamnosus 10,000 MMU CELLS/CAPSULE PO SCH ×2 (07:44→21:45)
[2020-10-05] MEDS: OLANZapine 5mg rapidly disint. tablet PO SCH ×2 (07:44→21:46)
[2020-10-05] MEDS: enoxaparin 40mg/0.4ml syringe SUBCUT SCH (07:44)
[2020-10-05] MEDS: divalproex sod 250mg ER (24-hour) tablet PO SCH (07:44)
[2020-10-05] MEDS: donepezil 5mg tablet PO SCH (07:44)
[2020-10-05] MEDS: CefTRIAXone/D5W-Rocephin 1gm 50 ML IV SCH (07:45)
--- NOTE | 2020-10-05 08:00 | NUR ---
Patient incontinent of bowel and bladder. Personal hygiene and pericare given but patient became agitated during pericare. Patient started making loud noises and kicking and grabbing/pulling and flailing his limbs at [facility]. As patient is attempting to kick and hit [facility] it sounded as if patient stated in garbled words "I'm hungry!" Explained to patient that we are providing pericare for personal hygiene and to maintain skin integrity, and that he will be fed as soon as completed however patient continued flailing his limbs lunging at [facility] so stopped giving eladio care. Patient calmed down, assisted patient to aspiration precaution position with HOB elevated and let patient know that after he eats we will finish pericare. Patient assisted with feeding, will complete pericare after done eating and will continue to monitor.
[2020-10-05] MEDS: lactose-reduced food (Ensure Enlive) - 237ml bottle PO SCH ×3 (08:25→18:03)
[2020-10-05 11:00] VITALS: BP 142/47
--- NOTE | 2020-10-05 14:37 | NUR ---
PT in with patient.
--- NOTE | 2020-10-05 18:33 | NUR ---
Problems reprioritized. Patient report given, questions answered & plan of care reviewed with HYAICNTH Taylor. Addendum: 10/06/20 at 0037 by Claudia Fagan RN Patient in room [address] I have received report from HYACINTH Trevino and had the opportunity to ask questions and assume patient care.
--- NOTE | 2020-10-05 19:00 | NUR ---
Problems reprioritized. Patient report given, questions answered & plan of care reviewed with HYACINTH Haines.
--- NOTE | 2020-10-05 19:00 | NUR ---
Patient in room DELMER 356. I have received report from TYLER CLAROS and had the opportunity to ask questions and assume patient care.
[2020-10-05] MEDS: Melatonin 3mg tablet PO SCH (21:45)
[2020-10-06] VITALS: BP 92/47
[2020-10-06] MEDS: LORazepam 1 MG tablet PO SCH ×3 (00:15→18:21)
[2020-10-06] MEDS: dextrose 5% water 500ml 500 ML IV SCH ×5 (02:06→21:10)
--- NOTE | 2020-10-06 06:45 | NUR ---
Patient in room DELMRE 356. I have received report from Zaki CLAROS and had the opportunity to ask questions and assume patient care.
[2020-10-06 07:00] VITALS: BP 140/41
[2020-10-06 08:00] VITALS: BP 128/70
[2020-10-06] MEDS: enoxaparin 40mg/0.4ml syringe SUBCUT SCH (08:32)
[2020-10-06] MEDS: CefTRIAXone/D5W-Rocephin 1gm 50 ML IV SCH (08:32)
[2020-10-06] MEDS: OLANZapine 5mg rapidly disint. tablet PO SCH ×2 (08:33→21:11)
[2020-10-06] MEDS: donepezil 5mg tablet PO SCH (08:33)
[2020-10-06] MEDS: divalproex sod 250mg ER (24-hour) tablet PO SCH (08:33)
[2020-10-06] MEDS: sertraline 25mg tablet PO SCH (08:33)
[2020-10-06] MEDS: lactobacillus rhamnosus 10,000 MMU CELLS/CAPSULE PO SCH ×2 (08:33→21:11)
[2020-10-06] MEDS: lactose-reduced food (Ensure Enlive) - 237ml bottle PO SCH ×3 (08:34→18:21)
[2020-10-06 12:00] VITALS: BP 118/62
--- NOTE | 2020-10-06 18:15 | NUR ---
Problems reprioritized. Patient report given, questions answered & plan of care reviewed with Zaki CLAROS.
--- NOTE | 2020-10-06 18:30 | NUR ---
Patient in room DELMER 356. I have received report from KYMBERLY CLAROS and had the opportunity to ask questions and assume patient care.
[2020-10-06 20:00] VITALS: BP 87/40
[2020-10-06 20:15] VITALS: BP 90/52
[2020-10-06] MEDS: Melatonin 3mg tablet PO SCH (21:11)
[2020-10-07] VITALS: BP 112/41
[2020-10-07] MEDS: LORazepam 1 MG tablet PO SCH ×3 (00:14→16:00)
[2020-10-07] MEDS: dextrose 5% water 500ml 500 ML IV SCH ×5 (02:18→19:43)
--- NOTE | 2020-10-07 06:25 | NUR ---
Problems reprioritized. Patient report given, questions answered & plan of care reviewed with HEIDY CLAROS.
--- NOTE | 2020-10-07 07:20 | NUR ---
Patient in room DELMER 356A. I have received report from ED WARD RN and had the opportunity to ask questions and assume patient care.
[2020-10-07] MEDS: lactose-reduced food (Ensure Enlive) - 237ml bottle PO SCH ×3 (08:00→18:48)
[2020-10-07] MEDS: donepezil 5mg tablet PO SCH (10:54)
[2020-10-07] MEDS: lactobacillus rhamnosus 10,000 MMU CELLS/CAPSULE PO SCH ×2 (10:54→20:36)
[2020-10-07] MEDS: sertraline 25mg tablet PO SCH (10:55)
[2020-10-07] MEDS: OLANZapine 5mg rapidly disint. tablet PO SCH ×2 (10:56→20:36)
[2020-10-07] MEDS: divalproex sod 250mg ER (24-hour) tablet PO SCH (10:56)
[2020-10-07] MEDS: enoxaparin 40mg/0.4ml syringe SUBCUT SCH (10:56)
[2020-10-07] MEDS: morphine 2 MG/ML inj. syringe IV PRN (14:53)
--- NOTE | 2020-10-07 15:09 | NUR ---
Reassessment: No significant changes in patient's PO intake since last RD assessment as pt with average 25-50% PO intake of meals with average 75% PO intake of ONS. Pt receiving additional nutrition interventions including yogurt, Magic cup, and thickened smoothie. Pt continues to be documented to be receiving total assistance with meals. [facility] 10/05. Will continue to follow closely. Recommendations: 1) Continue pureed/nectar thick diet w/ feeder per ST recs; encourage PO 2) Continue vanilla yogurt WB, Magic Cup WL, [place] thickened shake WS; encourage PO 3) [place] thick Ensure Enlive TIDWM; encourage PO 4) Routine bowel care 5) Scaled weight this admit Addendum: 10/07/20 at [address] Amended: Links added.
[2020-10-07 18:00] VITALS: BP 123/52
--- NOTE | 2020-10-07 18:24 | NUR ---
I have received report from HYACINTH Bowden and had the opportunity to ask questions and assume patient care.
--- NOTE | 2020-10-07 18:52 | NUR ---
Problems reprioritized. Patient report given, questions answered & plan of care reviewed with HYACINTH RUDD.
[2020-10-07] MEDS: Melatonin 3mg tablet PO SCH (20:36)
[2020-10-08 00:41] VITALS: BP 120/59
--- NOTE | 2020-10-08 00:50 | NUR ---
Paged regarding patient being diaphoretic, tachy, and a small amount of brown emesis. Oxygen saturation was also low . Lungs sounds clear, hypoactive bowels, patient placed on 3L of oxygen, saturations between 88-90 on 3L. Waiting for to call back with new orders. 0040: BP 120/59 R:30- 88% 3 L temp 100.7
[2020-10-08] MEDS: dextrose 5% water 500ml 500 ML IV SCH ×2 (00:53→08:27)
--- NOTE | 2020-10-08 02:15 | NUR ---
Received an order for chest x-ray, and oxygen
[2020-10-08] MEDS: morphine 2 MG/ML inj. syringe IV PRN (04:08)
[2020-10-08] MEDS ORDERED: normal saline 1000ml 1,000 ML IV ONE (04:15)
[2020-10-08 04:29] LABS: ABG BASE EXCESS -2.8 mmol/L (-2.0-2.0); ABG HCO3 19.2 mmol/L (22.0-26.0); ABG OXYGEN SATURATION 93.1 % (94-97); ABG PCO2 (T) 27.3 mmHg (35.0-48.0); ABG PO2 (T) 64.6 mmHg (75.0-100.0); ALLEN'S TEST POSITIVE; FCOHb 0.2 % (0.0-3.9); FLOW 15 L/min; FMetHb 0.3 % (0.0-1.5); FO2Hb 92.6 % (94-97); PATIENT TEMPERATURE 36.5; TOTAL HEMOGLOBIN 17.4 G/dl (14.0-18.0)
[2020-10-08 04:30] LABS: BASOPHILS # (AUTO) 0.1 X10'3 (0-0.2); BASOPHILS % (AUTO) 0.4 % (0-1); EOSINOPHILS % (AUTO) 0 % (0-6); HEMATOCRIT 48.3 % (42.0-52.0); HEMOGLOBIN 16.3 g/dl (14.0-17.9); LYMPHOCYTES # (AUTO) 0.4 X10'3 (1.1-4.8); LYMPHOCYTES % (AUTO) 3.4 % (21-51); MEAN CORPUSCULAR HEMOGLOBIN 29.8 PG (27.0-31.0); MEAN CORPUSCULAR HGB CONC 33.8 g/dL (33.0-36.5); MEAN CORPUSCULAR VOLUME 88.3 FL (78-98); MEAN PLATELET VOLUME 9.3 FL (7.4-10.4); MONOCYTES # (AUTO) 0.2 X10'3 (0-0.9); MONOCYTES % (AUTO) 1.4 % (2-12); NEUTROPHILS # (AUTO) 12.2 X10'3 (1.8-7.7); NEUTROPHILS % (AUTO) 94.8 % (42-75); PLATELET COUNT 308 X10'3 (140-440); RED BLOOD COUNT 5.47 X10'6 (4.70-6.10); RED CELL DISTRIBUTION WIDTH 14.8 % (11.5-14.5); WHITE BLOOD COUNT 12.8 X10'3 (4.5-11.0)
[2020-10-08] MEDS ORDERED: ondansetron/PF 4mg/2ml inj IV PRN (04:50)
[2020-10-08] MEDS ORDERED: sodium bicarbonate (8.4%) inj. 100 MEQ in dextrose 5%-water 1,000 ML IV SCH (04:50)
[2020-10-08 04:52] LABS: PARTIAL THROMBOPLASTIN TIME 30 SECONDS (22-32)
[2020-10-08 04:54] LABS: ALANINE AMINOTRANSFERASE 34 U/L (12-78); ALBUMIN 2.9 G/DL (3.4-5.0); ALBUMIN/GLOBULIN RATIO 0.8 (1.1-1.5); ALKALINE PHOSPHATASE 104 IU/L (46-116); ANION GAP 10 (8-16); ASPARTATE AMINO TRANSFERASE 17 U/L (10-37); BILIRUBIN,TOTAL 0.9 MG/DL (0.1-1.0); BLOOD UREA NITROGEN 12 MG/DL (7-18); BUN/CREATININE RATIO 9.2 (5.4-32.0); CALCIUM 9.4 MG/DL (8.5-10.1); CHLORIDE 98 MMOL/L (99-107); CREATININE 1.31 MG/DL (0.60-1.10); GLUCOSE 215 MG/DL (70-104); POTASSIUM 4.4 MMOL/L (3.5-5.1); SODIUM 133 MMOL/L (135-145); TOTAL CARBON DIOXIDE 24.8 MMOL/L (24-32); TOTAL PROTEIN 6.4 G/DL (6.4-8.2); eGFR 54 ML/MIN
[2020-10-08 05:17] LABS: D-DIMER 0.84 MG/L FEU (0-0.50)
--- NOTE | 2020-10-08 05:52 | NUR ---
Patient in room PCU 3018. I have received report from Cruz CLAROS and had the opportunity to ask questions and assume patient care. Patient is stable and awake on 15L High flow Nasal cannula. Awaiting response from family (Cruz CLAROS will call) and KOLTON ZAZUETA to what the next steps are.
--- NOTE | 2020-10-08 06:15 | NUR ---
Problems reprioritized. Patient report given, questions answered & plan of care reviewed with Blaire RN.
--- NOTE | 2020-10-08 06:52 | NUR ---
0030: Patient had a large amount of brown emesis, diaphoretic, oxygen saturation low 80's, venti mask placed, paged, Blood pressure machine unable to take bp, manual BP done 130/90, heart rate 130-140, Temp 97.7axilary. Morphine was given 0408, Hospitalist paged to come look at patient. Orders given, CBC,CMP, Respiratory eval treat, Bi pap if needed, transfer to tele if bi pap needed. , ABG, NS Bolus, NG if needed. OK to have sitter if needed, 0500 EKG was done brought down to ER to read, showed acute ID. Respiratory put patient on high flow oxygen 15L , orders to transfer patient to Tele. 0545: Patient transferred to tele, report was given prior to transfer to [facility]. Patients called message left to call me or the tele unit if after 30.
--- NOTE | 2020-10-08 06:52 | NUR ---
BEDSIDE REPROT RECEIVED FROM LINDEN CLAROS , PT IS RESTING
[2020-10-08 07:22] VITALS: BP 112/71
[2020-10-08] MEDS: lactose-reduced food (Ensure Enlive) - 237ml bottle PO SCH ×3 (08:00→17:47)
[2020-10-08] MEDS: donepezil 5mg tablet PO SCH (08:26)
[2020-10-08] MEDS: sertraline 25mg tablet PO SCH (08:26)
[2020-10-08] MEDS: lactobacillus rhamnosus 10,000 MMU CELLS/CAPSULE PO SCH ×2 (08:26→21:45)
[2020-10-08] MEDS: LORazepam 1 MG tablet PO SCH ×3 (08:26→15:54)
[2020-10-08] MEDS: divalproex sod 250mg ER (24-hour) tablet PO SCH (08:26)
[2020-10-08] MEDS: enoxaparin 40mg/0.4ml syringe SUBCUT SCH (08:27)
[2020-10-08] MEDS: OLANZapine 5mg rapidly disint. tablet PO SCH ×2 (09:10→21:46)
[2020-10-08 09:45] LABS: TROPONIN I 0.06 NG/ML (0.0-0.05)
[2020-10-08] MEDS: furosemide 20 MG/2 ML vial IV SCH ×2 (10:42→21:46)
[2020-10-08 11:50] VITALS: BP 119/72
[2020-10-08 15:48] VITALS: BP 118/42
[2020-10-08 18:00] VITALS: BP 106/86
[2020-10-08] MEDS: Melatonin 3mg tablet PO SCH (21:45)
[2020-10-08 22:00] VITALS: BP 110/66
[2020-10-09] MEDS: LORazepam 1 MG tablet PO SCH ×3 (00:44→16:37)
[2020-10-09 02:00] VITALS: BP 112/70
[2020-10-09 05:11] LABS: BASOPHILS % (AUTO) 0.4 % (0-1); EOSINOPHILS % (AUTO) 0.1 % (0-6); HEMATOCRIT 40.7 % (42.0-52.0); HEMOGLOBIN 13.8 g/dl (14.0-17.9); LYMPHOCYTES # (AUTO) 0.7 X10'3 (1.1-4.8); LYMPHOCYTES % (AUTO) 10.2 % (21-51); MEAN CORPUSCULAR HEMOGLOBIN 29.9 PG (27.0-31.0); MEAN CORPUSCULAR HGB CONC 33.8 g/dL (33.0-36.5); MEAN CORPUSCULAR VOLUME 88.5 FL (78-98); MEAN PLATELET VOLUME 8.9 FL (7.4-10.4); MONOCYTES % (AUTO) 13.4 % (2-12); NEUTROPHILS # (AUTO) 5.6 X10'3 (1.8-7.7); NEUTROPHILS % (AUTO) 75.9 % (42-75); PLATELET COUNT 261 X10'3 (140-440); RED CELL DISTRIBUTION WIDTH 14.9 % (11.5-14.5); WHITE BLOOD COUNT 7.3 X10'3 (4.5-11.0)
[2020-10-09 05:22] LABS: ALANINE AMINOTRANSFERASE 25 U/L (12-78); ALBUMIN 2.7 G/DL (3.4-5.0); ALBUMIN/GLOBULIN RATIO 0.8 (1.1-1.5); ANION GAP 10 (8-16); ASPARTATE AMINO TRANSFERASE 13 U/L (10-37); BILIRUBIN,TOTAL 0.8 MG/DL (0.1-1.0); BLOOD UREA NITROGEN 26 MG/DL (7-18); CALCIUM 9.3 MG/DL (8.5-10.1); CHLORIDE 101 MMOL/L (99-107); CREATININE 1.18 MG/DL (0.60-1.10); GLUCOSE 128 MG/DL (70-104); SODIUM 136 MMOL/L (135-145); TOTAL CARBON DIOXIDE 25.2 MMOL/L (24-32); eGFR 61 ML/MIN
[2020-10-09 05:36] LABS: ALKALINE PHOSPHATASE 81 IU/L (46-116)
--- NOTE | 2020-10-09 06:54 | NUR ---
RECEIVED BEDSIDE REPORT FROM JOSE GUADALUPE CLAROS
--- NOTE | 2020-10-09 07:05 | NUR ---
Problems reprioritized. Patient report given, questions answered & plan of care reviewed with Blaire RN.
[2020-10-09 07:20] VITALS: BP 107/66
[2020-10-09] MEDS: divalproex sod 250mg ER (24-hour) tablet PO SCH (08:08)
[2020-10-09] MEDS: lactobacillus rhamnosus 10,000 MMU CELLS/CAPSULE PO SCH ×2 (08:08→20:08)
[2020-10-09] MEDS: furosemide 20 MG/2 ML vial IV SCH ×2 (08:08→20:07)
[2020-10-09] MEDS: sertraline 25mg tablet PO SCH (08:08)
[2020-10-09] MEDS: enoxaparin 40mg/0.4ml syringe SUBCUT SCH (08:09)
[2020-10-09] MEDS: OLANZapine 5mg rapidly disint. tablet PO SCH ×2 (08:09→20:08)
[2020-10-09] MEDS: donepezil 5mg tablet PO SCH (08:10)
[2020-10-09] MEDS: lactose-reduced food (Ensure Enlive) - 237ml bottle PO SCH ×3 (08:11→17:59)
[2020-10-09 11:28] VITALS: BP 91/53
--- NOTE | 2020-10-09 12:17 | NUR ---
report received from HYACINTH Rudd. awaiting patient arrival.
--- NOTE | 2020-10-09 12:17 | NUR ---
gave report to Adelaida joseph medsurg, pt transferred to [facility] in zero distress
--- NOTE | 2020-10-09 12:45 | NUR ---
patient arrived to floor. VSS. comfortable in bed.
[2020-10-09 13:01] VITALS: BP 134/56
--- NOTE | 2020-10-09 18:24 | NUR ---
Problems reprioritized. Patient report given, questions answered & plan of care reviewed with HYACINTH Vo.
--- NOTE | 2020-10-09 18:25 | NUR ---
Patient in room DELMER 359. I have received report from Suzanne CLAROS and had the opportunity to ask questions and assume patient care.
--- NOTE | 2020-10-09 18:25 | NUR ---
I agree with previous nurse assessment. Addendum: 10/09/20 at 1826 by Suzanne Collado RN Amended: Links added.
[2020-10-09 19:00] VITALS: BP 102/51
[2020-10-09] MEDS: Melatonin 3mg tablet PO SCH (20:07)
[2020-10-10] VITALS: BP 104/66
[2020-10-10] MEDS: OLANZapine 5mg rapidly disint. tablet PO SCH ×2 (07:32→21:27)
[2020-10-10] MEDS: furosemide 20 MG/2 ML vial IV SCH ×2 (07:32→21:27)
[2020-10-10] MEDS: lactobacillus rhamnosus 10,000 MMU CELLS/CAPSULE PO SCH ×2 (07:33→21:28)
[2020-10-10] MEDS: donepezil 5mg tablet PO SCH (07:33)
[2020-10-10] MEDS: LORazepam 1 MG tablet PO SCH ×4 (07:33→23:50)
[2020-10-10] MEDS: divalproex sod 250mg ER (24-hour) tablet PO SCH (07:33)
[2020-10-10] MEDS: enoxaparin 40mg/0.4ml syringe SUBCUT SCH (07:34)
[2020-10-10] MEDS: sertraline 25mg tablet PO SCH (07:34)
[2020-10-10 07:40] VITALS: BP 132/84
[2020-10-10] MEDS: lactose-reduced food (Ensure Enlive) - 237ml bottle PO SCH ×3 (07:44→17:49)
[2020-10-10 11:30] VITALS: BP 97/56
[2020-10-10 18:50] VITALS: BP 98/48
[2020-10-10] MEDS: Melatonin 3mg tablet PO SCH (21:27)
[2020-10-10] MEDS: acetaminophen 325mg tablet PO PRN (23:50)
[2020-10-11] VITALS: BP 92/56
--- NOTE | 2020-10-11 06:22 | NUR ---
Problems reprioritized. Patient report given, questions answered & plan of care reviewed with JAMIE. Addendum: 10/11/20 at 0623 by Shine Shore RN Amended: Links added.
[2020-10-11 06:28] LABS: ALBUMIN 2.5 G/DL (3.4-5.0); ANION GAP 8 (8-16); BLOOD UREA NITROGEN 30 MG/DL (7-18); BUN/CREATININE RATIO 27.3 (5.4-32.0); CALCIUM 9.4 MG/DL (8.5-10.1); CHLORIDE 109 MMOL/L (99-107); GLUCOSE 113 MG/DL (70-104); POTASSIUM 3.6 MMOL/L (3.5-5.1); SODIUM 148 MMOL/L (135-145); TOTAL CARBON DIOXIDE 30.7 MMOL/L (24-32); eGFR 66 ML/MIN
[2020-10-11 07:37] VITALS: BP 122/59
[2020-10-11] MEDS: divalproex sod 250mg ER (24-hour) tablet PO SCH (08:02)
[2020-10-11] MEDS: OLANZapine 5mg rapidly disint. tablet PO SCH ×2 (08:02→20:12)
[2020-10-11] MEDS: donepezil 5mg tablet PO SCH (08:02)
[2020-10-11] MEDS: furosemide 20 MG/2 ML vial IV SCH ×2 (08:02→20:12)
[2020-10-11] MEDS: LORazepam 1 MG tablet PO SCH ×2 (08:02→15:30)
[2020-10-11] MEDS: lactobacillus rhamnosus 10,000 MMU CELLS/CAPSULE PO SCH ×2 (08:02→20:12)
[2020-10-11] MEDS: sertraline 25mg tablet PO SCH (08:02)
[2020-10-11] MEDS: enoxaparin 40mg/0.4ml syringe SUBCUT SCH (08:03)
[2020-10-11] MEDS: lactose-reduced food (Ensure Enlive) - 237ml bottle PO SCH ×3 (08:03→18:05)
[2020-10-11 11:55] VITALS: BP 101/57
--- NOTE | 2020-10-11 15:01 | NUR ---
Reassessment: Pt average PO intake is 25-50% of meals with an average of 50-75% PO intake of Ensure enlive, PO intake has not improved since last RD assessment. Pt receiving additional nutrition interventions including yogurt, Magic cup, and thickened smoothie. Pt receiving mild nectar thick liquids and pureed diet per PATCH DRILLER and is still on total feeding assistance. Spoke to bedside nurse through TC, reports pt eating magic cup and ensure enlive first before meals. Pt last BM is on 10/10, pt receiving bowel care as needed. Pt scaled weight obtained 10/05, pt weight changes unable to determine d/t weight on admit is not scaled and there is no weight hx per EMR. TC bed side nurse and discussed current scaled weight to be taken. Will continue to monitor. Recommendations: 1) Continue pureed/nectar thick diet w/ feeder per ST recs; encourage PO 2) Continue vanilla yogurt WB, Magic Cup WL, [place] thickened shake WS; encourage PO 3) [place] thick Ensure Enlive TIDWM; encourage PO 4) Bowel care as needed 5) Scaled weight per rx Addendum: 10/11/20 at 1501 by [address]IC INTERN RD Amended: Links added. Addendum: 10/11/20 at [address] LUZMARIA agree with operations intern note
--- NOTE | 2020-10-11 18:09 | NUR ---
Problems reprioritized. Patient report given, questions answered & plan of care reviewed with HYACINTH GUERRA.
[2020-10-11 18:50] VITALS: BP 132/64
[2020-10-11 19:47] VITALS: BP 132/64
[2020-10-11] MEDS: Melatonin 3mg tablet PO SCH (20:12)
[2020-10-12] MEDS: LORazepam 1 MG tablet PO SCH ×3 (00:02→16:16)
[2020-10-12 00:38] VITALS: BP 113/62
[2020-10-12 05:49] LABS: ALBUMIN 2.6 G/DL (3.4-5.0); ANION GAP 8 (8-16); BLOOD UREA NITROGEN 36 MG/DL (7-18); BUN/CREATININE RATIO 30.5 (5.4-32.0); CALCIUM 9.3 MG/DL (8.5-10.1); CHLORIDE 113 MMOL/L (99-107); CREATININE 1.18 MG/DL (0.60-1.10); GLUCOSE 123 MG/DL (70-104); POTASSIUM 3.4 MMOL/L (3.5-5.1); SODIUM 153 MMOL/L (135-145); TOTAL CARBON DIOXIDE 31.7 MMOL/L (24-32); eGFR 61 ML/MIN
--- NOTE | 2020-10-12 06:30 | NUR ---
Patient in room DELMER 359. I have received report from sadia CLAROS and had the opportunity to ask questions and assume patient care.
--- NOTE | 2020-10-12 06:38 | NUR ---
Problems reprioritized. Patient report given, questions answered & plan of care reviewed with SAY. Addendum: 10/12/20 at 0639 by Shine Shore RN Amended: Links added.
--- NOTE | 2020-10-12 06:51 | NUR ---
Patient in room DELMER 359. I have received report from Rinku CLAROS and had the opportunity to ask questions and assume patient care.
[2020-10-12 07:00] VITALS: BP 129/54
[2020-10-12] MEDS: lactobacillus rhamnosus 10,000 MMU CELLS/CAPSULE PO SCH ×2 (07:45→21:10)
[2020-10-12] MEDS: divalproex sod 250mg ER (24-hour) tablet PO SCH (07:45)
[2020-10-12] MEDS: sertraline 25mg tablet PO SCH (07:45)
[2020-10-12] MEDS: OLANZapine 5mg rapidly disint. tablet PO SCH ×2 (07:46→21:11)
[2020-10-12] MEDS: donepezil 5mg tablet PO SCH (07:47)
[2020-10-12] MEDS: acetaminophen 325mg tablet PO PRN (07:47)
[2020-10-12] MEDS: enoxaparin 40mg/0.4ml syringe SUBCUT SCH (07:49)
[2020-10-12] MEDS: furosemide 20 MG/2 ML vial IV SCH (07:51)
[2020-10-12] MEDS: lactose-reduced food (Ensure Enlive) - 237ml bottle PO SCH ×3 (08:24→18:12)
[2020-10-12 11:43] VITALS: BP 127/58
[2020-10-12] MEDS ORDERED: fluconazole 40mg/ml oral suspension 35ml bottle PO ONE (15:10)
--- NOTE | 2020-10-12 15:22 | NUR ---
PAGER ID: [phone] MESSAGE: Francisca- Surg- [phone]- [id number]- sara forgot to mention K-3.4. no protocol ordered. Replace?
[2020-10-12] MEDS ORDERED: fluconazole 10 MG/1 ML 35ml oral suspension PO ONE (15:30)
--- NOTE | 2020-10-12 17:57 | NUR ---
PAGER ID: [phone] MESSAGE: Francisca- Surg- [phone]- [place]-[id number]- Just touching base, would you like me to replace the K of 3.4 per protocol? Need protocol orders.
[2020-10-12 18:00] VITALS: BP 116/52
--- NOTE | 2020-10-12 18:13 | NUR ---
Problems reprioritized. Patient report given, questions answered & plan of care reviewed with Rinku CLAROS.
[2020-10-12 18:50] VITALS: BP 116/52
[2020-10-12] MEDS: nystatin 15 GM powder TP SCH (21:11)
[2020-10-12] MEDS: Melatonin 3mg tablet PO SCH (21:11)
--- NOTE | 2020-10-12 22:00 | NUR ---
ATTEMPTED TO GIVE PT 250 ML FREE WATER, THICKENED. PT REFUSED
[2020-10-13] VITALS: BP 120/81
[2020-10-13] MEDS: LORazepam 1 MG tablet PO SCH ×4 (00:31→23:28)
[2020-10-13] MEDS: piperacillin/tazo 3.375gm/50ml 50 ML IV SCH ×3 (00:31→15:15)
[2020-10-13 05:06] LABS: BASOPHILS % (AUTO) 0.3 % (0-1); EOSINOPHILS % (AUTO) 0.3 % (0-6); HEMATOCRIT 40.3 % (42.0-52.0); HEMOGLOBIN 13.3 g/dl (14.0-17.9); LYMPHOCYTES # (AUTO) 1.2 X10'3 (1.1-4.8); LYMPHOCYTES % (AUTO) 8.6 % (21-51); MEAN CORPUSCULAR HEMOGLOBIN 29.3 PG (27.0-31.0); MEAN CORPUSCULAR HGB CONC 32.9 g/dL (33.0-36.5); MEAN CORPUSCULAR VOLUME 88.9 FL (78-98); MEAN PLATELET VOLUME 8.4 FL (7.4-10.4); MONOCYTES # (AUTO) 1.1 X10'3 (0-0.9); MONOCYTES % (AUTO) 7.7 % (2-12); NEUTROPHILS % (AUTO) 83.1 % (42-75); PLATELET COUNT 329 X10'3 (140-440); RED BLOOD COUNT 4.53 X10'6 (4.70-6.10); RED CELL DISTRIBUTION WIDTH 14.8 % (11.5-14.5); WHITE BLOOD COUNT 14.5 X10'3 (4.5-11.0)
[2020-10-13 05:14] LABS: ALANINE AMINOTRANSFERASE 36 U/L (12-78); ALBUMIN 2.6 G/DL (3.4-5.0); ALBUMIN/GLOBULIN RATIO 0.7 (1.1-1.5); ALKALINE PHOSPHATASE 72 IU/L (46-116); ANION GAP 7 (8-16); ASPARTATE AMINO TRANSFERASE 12 U/L (10-37); BILIRUBIN,TOTAL 0.5 MG/DL (0.1-1.0); BLOOD UREA NITROGEN 41 MG/DL (7-18); BUN/CREATININE RATIO 32.8 (5.4-32.0); CALCIUM 9.2 MG/DL (8.5-10.1); CHLORIDE 118 MMOL/L (99-107); CREATININE 1.25 MG/DL (0.60-1.10); GLUCOSE 123 MG/DL (70-104); MAGNESIUM 2.5 MG/DL (1.5-2.4); PHOSPHORUS 3.9 MG/DL (2.3-4.5); POTASSIUM 3.3 MMOL/L (3.5-5.1); TOTAL CARBON DIOXIDE 33.8 MMOL/L (24-32); TOTAL PROTEIN 6.3 G/DL (6.4-8.2); eGFR 57 ML/MIN
[2020-10-13 05:27] LABS: SODIUM 159 MMOL/L (135-145)
[2020-10-13] MEDS ORDERED: dextrose 5%-water 1,000 ML IV ONE (05:35)
--- NOTE | 2020-10-13 06:47 | NUR ---
Problems reprioritized. Patient report given, questions answered & plan of care reviewed with BEBE. Addendum: 10/13/20 at 0648 by Shine Shore RN Amended: Links added.
[2020-10-13 07:30] VITALS: BP 107/53
[2020-10-13] MEDS ORDERED: BARIUM SULFATE 340 ML SUSP.RECON***PROCEDURE AREA ONLY**DONT ENTER PO ONE (08:00)
[2020-10-13] MEDS: lactose-reduced food (Ensure Enlive) - 237ml bottle PO SCH ×3 (08:00→18:04)
[2020-10-13] MEDS: lactobacillus rhamnosus 10,000 MMU CELLS/CAPSULE PO SCH ×2 (09:57→20:00)
[2020-10-13] MEDS: donepezil 5mg tablet PO SCH (09:57)
[2020-10-13] MEDS: sertraline 25mg tablet PO SCH (09:57)
[2020-10-13] MEDS: OLANZapine 5mg rapidly disint. tablet PO SCH ×3 (09:57→21:25)
[2020-10-13] MEDS: enoxaparin 40mg/0.4ml syringe SUBCUT SCH (09:57)
[2020-10-13] MEDS: nystatin 15 GM powder TP SCH ×3 (09:58→21:06)
[2020-10-13] MEDS: divalproex sod 250mg ER (24-hour) tablet PO SCH (09:58)
--- NOTE | 2020-10-13 10:37 | NUR ---
PAGER ID: [phone] MESSAGE: MARYLU STEWART 359A pT. 3.3 K NO POTASSIUMR EPLACEMENT ORDERED X 2DAYS. HOLDING 0830- DEPAKOTE. PT. PUREED DIET - CAN NOT CRUSH EXTENDED REALEASE. lIQUID DEPAKOTE? Clari [phone]
--- NOTE | 2020-10-13 11:00 | NUR ---
Unable to draw labs from midline. Flushes with ease. Tried different positions. Notified lab. They plan to come "stick" pt. for BMP.
--- NOTE | 2020-10-13 11:10 | NUR ---
MD Medley rounded on pt. Gave orders for electrolyte replacement orders.
[2020-10-13 12:00] VITALS: BP 120/56
[2020-10-13] MEDS ORDERED: potassium Cl 20 mEq SR tablet PO PRN (12:05)
[2020-10-13] MEDS ORDERED: magnesium 4gm in 100ml NS 100 ML IV PRN (12:05)
[2020-10-13] MEDS ORDERED: potassium Cl 40MEQ/1/2NS 520ml 520 ML IV PRN (12:05)
[2020-10-13] MEDS ORDERED: magnesium Cl slow-release 64mg tablet PO PRN (12:05)
[2020-10-13 12:20] LABS: ALBUMIN 2.8 G/DL (3.4-5.0); ANION GAP 8 (8-16); BLOOD UREA NITROGEN 34 MG/DL (7-18); BUN/CREATININE RATIO 31.5 (5.4-32.0); CALCIUM 9.2 MG/DL (8.5-10.1); CHLORIDE 113 MMOL/L (99-107); CREATININE 1.08 MG/DL (0.60-1.10); GLUCOSE 164 MG/DL (70-104); POTASSIUM 3.2 MMOL/L (3.5-5.1); SODIUM 153 MMOL/L (135-145); TOTAL CARBON DIOXIDE 32.3 MMOL/L (24-32); eGFR 68 ML/MIN
[2020-10-13] MEDS: divalproex sod 125mg sprinkle cap PO SCH (13:05)
[2020-10-13] MEDS: dextrose 5%-water 1,000 ML IV SCH ×2 (13:05→23:21)
[2020-10-13] MEDS: potassium Cl 20 mEq SR tablet PO PRN ×3 (15:15→23:47)
--- NOTE | 2020-10-13 18:41 | NUR ---
Gave report to Dani CLAROS. Addendum: 10/13/20 at 1847 by Mariah Lopez RN HYACINTH is aware pt. requires 2 more potassium replacements per protocol.
[2020-10-13] MEDS: Melatonin 3mg tablet PO SCH ×2 (21:06→21:25)
--- NOTE | 2020-10-13 23:47 | NUR ---
RECEIVED PATIENT SITTING UP ON BED ALERT,CONFUSED X3,NO COMPLAIN OF PAIN,NO RESPIRATROY DISTRESS,POTASSIUM LEVEL 3.2 POTASSIUM 20MEQ 1TAB GIVEN,WILL MONITORED.
[2020-10-13 23:57] VITALS: BP 114/59
[2020-10-14] MEDS: piperacillin/tazo 3.375gm/50ml 50 ML IV SCH ×3 (00:03→16:40)
[2020-10-14] MEDS: potassium Cl 20 mEq SR tablet PO PRN ×4 (04:58→18:13)
[2020-10-14 06:33] LABS: BASOPHILS % (AUTO) 0.4 % (0-1); EOSINOPHILS # (AUTO) 0.2 X10'3 (0-0.9); EOSINOPHILS % (AUTO) 1.5 % (0-6); HEMATOCRIT 39.8 % (42.0-52.0); HEMOGLOBIN 13.2 g/dl (14.0-17.9); LYMPHOCYTES # (AUTO) 1.3 X10'3 (1.1-4.8); LYMPHOCYTES % (AUTO) 10.2 % (21-51); MEAN CORPUSCULAR HEMOGLOBIN 29.9 PG (27.0-31.0); MEAN CORPUSCULAR HGB CONC 33.2 g/dL (33.0-36.5); MEAN PLATELET VOLUME 9.1 FL (7.4-10.4); MONOCYTES % (AUTO) 7.5 % (2-12); NEUTROPHILS # (AUTO) 10.6 X10'3 (1.8-7.7); NEUTROPHILS % (AUTO) 80.4 % (42-75); PLATELET COUNT 319 X10'3 (140-440); RED BLOOD COUNT 4.42 X10'6 (4.70-6.10); RED CELL DISTRIBUTION WIDTH 15.1 % (11.5-14.5); WHITE BLOOD COUNT 13.1 X10'3 (4.5-11.0)
[2020-10-14 06:48] LABS: ALANINE AMINOTRANSFERASE 37 U/L (12-78); ALBUMIN 2.5 G/DL (3.4-5.0); ALBUMIN/GLOBULIN RATIO 0.7 (1.1-1.5); ALKALINE PHOSPHATASE 68 IU/L (46-116); ANION GAP 7 (8-16); ASPARTATE AMINO TRANSFERASE 17 U/L (10-37); BILIRUBIN,TOTAL 0.5 MG/DL (0.1-1.0); BLOOD UREA NITROGEN 27 MG/DL (7-18); BUN/CREATININE RATIO 24.3 (5.4-32.0); CALCIUM 8.8 MG/DL (8.5-10.1); CHLORIDE 108 MMOL/L (99-107); CREATININE 1.11 MG/DL (0.60-1.10); GLUCOSE 113 MG/DL (70-104); MAGNESIUM 2.3 MG/DL (1.5-2.4); PHOSPHORUS 3.7 MG/DL (2.3-4.5); POTASSIUM 3.2 MMOL/L (3.5-5.1); SODIUM 147 MMOL/L (135-145); TOTAL CARBON DIOXIDE 31.6 MMOL/L (24-32); eGFR 66 ML/MIN
[2020-10-14 07:00] VITALS: BP 125/42
[2020-10-14] MEDS ORDERED: divalproex sod 125mg sprinkle cap PO SCH (08:30)
[2020-10-14] MEDS: sertraline 25mg tablet PO SCH (08:40)
[2020-10-14] MEDS: LORazepam 1 MG tablet PO SCH ×2 (08:42→16:38)
[2020-10-14] MEDS: divalproex sod 125mg sprinkle cap PO SCH (08:42)
[2020-10-14] MEDS: lactobacillus rhamnosus 10,000 MMU CELLS/CAPSULE PO SCH ×2 (08:43→20:09)
[2020-10-14] MEDS: donepezil 5mg tablet PO SCH (08:44)
[2020-10-14] MEDS: nystatin 15 GM powder TP SCH ×3 (08:46→20:10)
[2020-10-14] MEDS: enoxaparin 40mg/0.4ml syringe SUBCUT SCH (08:46)
[2020-10-14] MEDS: morphine 2 MG/ML inj. syringe IV PRN (08:47)
[2020-10-14] MEDS: lactose-reduced food (Ensure Enlive) - 237ml bottle PO SCH ×3 (08:48→20:29)
[2020-10-14] MEDS: OLANZapine 5mg rapidly disint. tablet PO SCH (09:12)
--- NOTE | 2020-10-14 09:38 | NUR ---
PATIENT'S ABDOMEN FIRM AND DISTENDED, BLADDER SCAN SHOWED 1277ML. STRAIGHT CATH DONE PER HOSPITAL POLICY, 1300ML REMOVED
--- NOTE | 2020-10-14 10:34 | NUR ---
Reassessment: Per MD progress note pt has possible aspiration pneumonia. Modified barium swallow evaluation performed on 10/13 by and recommends continuation of pureed foods and nectar thick liquid diet. With total assist, pt average PO intake remains 25-50% of meals with 50-75% PO intake of Ensure Enlive. However, on 10/13 pt had PO intake of supplements with average of 83%. Pt continues receiving additional nutrition interventions including yogurt, Magic cup, and thickened smoothie. Last BM 10/13, receiving prn dulcolax. Will continue to monitor closely. Recommendations: 1) Continue pureed/nectar thick diet w/ feeder per recs; encourage PO 2) Continue vanilla yogurt WB, Magic Cup WL, [place] thickened shake WS; encourage PO 3) [place] thick Ensure Enlive TIDWM; encourage PO 4) Bowel care as needed 5) Scaled weight per rx Addendum: 10/14/20 at [address] Amended: Links added. Addendum: 10/14/20 at [address] I have reviewed and agree with note by Welding Equipment Repairer Supervisor. Deisy Jenkins RD
[2020-10-14] MEDS: dextrose 5%-water 1,000 ML IV SCH (12:28)
[2020-10-14] MEDS ORDERED: LIDOcaine 2% 10ml TOPICAL JELLY (Urojet) TP ONE (12:35)
[2020-10-14 12:54] VITALS: BP 107/44
[2020-10-14 18:00] VITALS: BP 142/44
--- NOTE | 2020-10-14 18:46 | NUR ---
Problems reprioritized. Patient report given, questions answered & plan of care reviewed with HYACINTH Wright.
--- NOTE | 2020-10-14 18:47 | NUR ---
Patient in room DELMER 352. I have received report from HYACINTH Lemus and had the opportunity to ask questions and assume patient care.
--- NOTE | 2020-10-14 18:54 | NUR ---
Patient in room DELMER 359. I have received report from Mariah CLAROS and had the opportunity to ask questions and assume patient care.
[2020-10-15] VITALS: BP 108/47
[2020-10-15] MEDS: LORazepam 1 MG tablet PO SCH ×3 (00:24→16:29)
[2020-10-15] MEDS: piperacillin/tazo 3.375gm/50ml 50 ML IV SCH ×3 (00:24→16:29)
[2020-10-15] MEDS: dextrose 5%-water 1,000 ML IV SCH (00:30)
--- NOTE | 2020-10-15 05:51 | NUR ---
Student documentation: I have reviewed and agree with all interventions, assessments performed and documented by Adrinaa CLAROS.
--- NOTE | 2020-10-15 06:33 | NUR ---
Problems reprioritized. Patient report given, questions answered & plan of care reviewed with HYACINTH Perry.
[2020-10-15 06:34] LABS: BASOPHILS % (AUTO) 0.3 % (0-1); EOSINOPHILS # (AUTO) 0.2 X10'3 (0-0.9); EOSINOPHILS % (AUTO) 2.1 % (0-6); HEMATOCRIT 36.2 % (42.0-52.0); HEMOGLOBIN 12.1 g/dl (14.0-17.9); LYMPHOCYTES # (AUTO) 1.4 X10'3 (1.1-4.8); LYMPHOCYTES % (AUTO) 15.4 % (21-51); MEAN CORPUSCULAR HGB CONC 33.4 g/dL (33.0-36.5); MEAN CORPUSCULAR VOLUME 89.7 FL (78-98); MONOCYTES # (AUTO) 0.6 X10'3 (0-0.9); NEUTROPHILS # (AUTO) 6.7 X10'3 (1.8-7.7); NEUTROPHILS % (AUTO) 75.2 % (42-75); PLATELET COUNT 243 X10'3 (140-440); RED BLOOD COUNT 4.03 X10'6 (4.70-6.10); RED CELL DISTRIBUTION WIDTH 14.7 % (11.5-14.5); WHITE BLOOD COUNT 8.9 X10'3 (4.5-11.0)
--- NOTE | 2020-10-15 06:35 | NUR ---
Problems reprioritized. Patient report given, questions answered & plan of care reviewed with Vicky CLAROS and Francisca CLAROS.
[2020-10-15 07:00] VITALS: BP_SYST 86; BP_SYST 91; BP_DIAS 44; BP_DIAS 48
[2020-10-15 07:00] LABS: ALANINE AMINOTRANSFERASE 30 U/L (12-78); ALBUMIN 2.1 G/DL (3.4-5.0); ALBUMIN/GLOBULIN RATIO 0.7 (1.1-1.5); ALKALINE PHOSPHATASE 55 IU/L (46-116); ANION GAP 5 (8-16); ASPARTATE AMINO TRANSFERASE 13 U/L (10-37); BILIRUBIN,TOTAL 0.5 MG/DL (0.1-1.0); BLOOD UREA NITROGEN 17 MG/DL (7-18); BUN/CREATININE RATIO 19.1 (5.4-32.0); CALCIUM 8.4 MG/DL (8.5-10.1); CHLORIDE 109 MMOL/L (99-107); CREATININE 0.89 MG/DL (0.60-1.10); GLUCOSE 90 MG/DL (70-104); MAGNESIUM 1.9 MG/DL (1.5-2.4); PHOSPHORUS 2.6 MG/DL (2.3-4.5); POTASSIUM 3.5 MMOL/L (3.5-5.1); SODIUM 145 MMOL/L (135-145); TOTAL CARBON DIOXIDE 31.3 MMOL/L (24-32); TOTAL PROTEIN 5.1 G/DL (6.4-8.2); eGFR 85 ML/MIN
[2020-10-15] MEDS: lactose-reduced food (Ensure Enlive) - 237ml bottle PO SCH ×3 (08:00→18:00)
[2020-10-15] MEDS: divalproex sod 125mg sprinkle cap PO SCH (09:31)
[2020-10-15] MEDS: sertraline 25mg tablet PO SCH (09:31)
[2020-10-15] MEDS: donepezil 5mg tablet PO SCH (09:31)
[2020-10-15] MEDS: lactobacillus rhamnosus 10,000 MMU CELLS/CAPSULE PO SCH ×2 (09:32→20:49)
[2020-10-15] MEDS: OLANZapine 5mg rapidly disint. tablet PO SCH ×2 (09:32→20:50)
[2020-10-15] MEDS: nystatin 15 GM powder TP SCH ×3 (09:33→20:50)
[2020-10-15] MEDS: enoxaparin 40mg/0.4ml syringe SUBCUT SCH (09:33)
--- NOTE | 2020-10-15 10:42 | NUR ---
Dr Dunham aware patient BP this morning keep monitoring at this time.
[2020-10-15] MEDS ORDERED: normal saline 500ml IV soln 500 ML IV ONE (10:55)
[2020-10-15 11:00] VITALS: BP 85/42
[2020-10-15 12:00] VITALS: BP 92/44
--- NOTE | 2020-10-15 17:04 | NUR ---
PAGER ID: [phone] MESSAGE: Vicky-Surg [phone] Re: [id number] Brad BP 96/47 HR 68
[2020-10-15 17:05] VITALS: BP 96/47
[2020-10-15 18:00] VITALS: BP 160/80
--- NOTE | 2020-10-15 18:44 | NUR ---
Problems reprioritized. Patient report given, questions answered & plan of care reviewed with Fatuma CLAROS.
[2020-10-15] MEDS: Melatonin 3mg tablet PO SCH (20:49)
[2020-10-16] MEDS: LORazepam 1 MG tablet PO SCH ×3 (00:33→16:29)
[2020-10-16] MEDS: piperacillin/tazo 3.375gm/50ml 50 ML IV SCH ×3 (00:33→16:33)
[2020-10-16] MEDS: clonazePAM 0.5mg tablet PO PRN (03:42)
[2020-10-16 05:52] LABS: BASOPHILS % (AUTO) 0.1 % (0-1); EOSINOPHILS # (AUTO) 0.1 X10'3 (0-0.9); EOSINOPHILS % (AUTO) 1.3 % (0-6); HEMATOCRIT 42.4 % (42.0-52.0); LYMPHOCYTES # (AUTO) 1.3 X10'3 (1.1-4.8); LYMPHOCYTES % (AUTO) 13.9 % (21-51); MEAN CORPUSCULAR HEMOGLOBIN 30.2 PG (27.0-31.0); MEAN CORPUSCULAR VOLUME 91.5 FL (78-98); MEAN PLATELET VOLUME 8.9 FL (7.4-10.4); MONOCYTES # (AUTO) 0.7 X10'3 (0-0.9); MONOCYTES % (AUTO) 7.7 % (2-12); NEUTROPHILS # (AUTO) 7.3 X10'3 (1.8-7.7); PLATELET COUNT 245 X10'3 (140-440); RED BLOOD COUNT 4.63 X10'6 (4.70-6.10); RED CELL DISTRIBUTION WIDTH 14.7 % (11.5-14.5); WHITE BLOOD COUNT 9.5 X10'3 (4.5-11.0)
[2020-10-16 05:53] LABS: ANION GAP 8 (8-16); BLOOD UREA NITROGEN 19 MG/DL (7-18); CHLORIDE 110 MMOL/L (99-107); CREATININE 0.75 MG/DL (0.60-1.10); GLUCOSE 88 MG/DL (70-104); SODIUM 145 MMOL/L (135-145); TOTAL CARBON DIOXIDE 26.6 MMOL/L (24-32)
[2020-10-16 05:54] LABS: ALANINE AMINOTRANSFERASE 25 U/L (12-78); ALBUMIN 2.3 G/DL (3.4-5.0); ALBUMIN/GLOBULIN RATIO 0.7 (1.1-1.5); ALKALINE PHOSPHATASE 65 IU/L (46-116); ASPARTATE AMINO TRANSFERASE 17 U/L (10-37); BILIRUBIN,TOTAL 0.4 MG/DL (0.1-1.0); BUN/CREATININE RATIO 25.3 (5.4-32.0); CALCIUM 8.5 MG/DL (8.5-10.1); MAGNESIUM 1.9 MG/DL (1.5-2.4); PHOSPHORUS 2.6 MG/DL (2.3-4.5); TOTAL PROTEIN 5.7 G/DL (6.4-8.2); eGFR > 90 ML/MIN
[2020-10-16 05:55] LABS: POTASSIUM 3.9 MMOL/L (3.5-5.1)
[2020-10-16 08:00] VITALS: BP 108/42
[2020-10-16] MEDS: divalproex sod 125mg sprinkle cap PO SCH (08:55)
[2020-10-16] MEDS: sertraline 25mg tablet PO SCH (08:55)
[2020-10-16] MEDS: donepezil 5mg tablet PO SCH (08:55)
[2020-10-16] MEDS: lactobacillus rhamnosus 10,000 MMU CELLS/CAPSULE PO SCH ×2 (08:55→21:35)
[2020-10-16] MEDS: nystatin 15 GM powder TP SCH ×3 (08:56→21:35)
[2020-10-16] MEDS: enoxaparin 40mg/0.4ml syringe SUBCUT SCH (08:56)
[2020-10-16] MEDS: OLANZapine 5mg rapidly disint. tablet PO SCH ×2 (09:19→21:35)
[2020-10-16 12:00] VITALS: BP 105/48
[2020-10-16] MEDS: lactose-reduced food (Ensure Enlive) - 237ml bottle PO SCH ×2 (13:49→17:57)
--- NOTE | 2020-10-16 18:35 | NUR ---
Patient in room DELMER 359. I have received report from SANDRA CLAROS and had the opportunity to ask questions and assume patient care.
--- NOTE | 2020-10-16 18:36 | NUR ---
Problems reprioritized. Patient report given, questions answered & plan of care reviewed with HYACINTH Haines.
[2020-10-16 19:00] VITALS: BP 105/49
[2020-10-16] MEDS: Melatonin 3mg tablet PO SCH (21:35)
[2020-10-17] VITALS: BP 115/51
[2020-10-17] MEDS: LORazepam 1 MG tablet PO SCH ×4 (00:25→23:15)
[2020-10-17] MEDS: piperacillin/tazo 3.375gm/50ml 50 ML IV SCH ×4 (00:25→23:15)
[2020-10-17 06:07] LABS: BASOPHILS % (AUTO) 0.1 % (0-1); EOSINOPHILS # (AUTO) 0.2 X10'3 (0-0.9); EOSINOPHILS % (AUTO) 1.8 % (0-6); HEMOGLOBIN 13.4 g/dl (14.0-17.9); LYMPHOCYTES # (AUTO) 1.4 X10'3 (1.1-4.8); LYMPHOCYTES % (AUTO) 14.9 % (21-51); MEAN CORPUSCULAR HEMOGLOBIN 30.3 PG (27.0-31.0); MEAN CORPUSCULAR HGB CONC 33.4 g/dL (33.0-36.5); MEAN CORPUSCULAR VOLUME 90.7 FL (78-98); MEAN PLATELET VOLUME 9.2 FL (7.4-10.4); MONOCYTES # (AUTO) 0.8 X10'3 (0-0.9); MONOCYTES % (AUTO) 8.2 % (2-12); NEUTROPHILS # (AUTO) 7.2 X10'3 (1.8-7.7); PLATELET COUNT 276 X10'3 (140-440); RED BLOOD COUNT 4.41 X10'6 (4.70-6.10); RED CELL DISTRIBUTION WIDTH 14.4 % (11.5-14.5); WHITE BLOOD COUNT 9.6 X10'3 (4.5-11.0)
[2020-10-17 06:08] LABS: ALANINE AMINOTRANSFERASE 29 U/L (12-78); ALBUMIN 2.2 G/DL (3.4-5.0); ALBUMIN/GLOBULIN RATIO 0.7 (1.1-1.5); ALKALINE PHOSPHATASE 65 IU/L (46-116); ANION GAP 8 (8-16); ASPARTATE AMINO TRANSFERASE 16 U/L (10-37); BILIRUBIN,TOTAL 0.5 MG/DL (0.1-1.0); BLOOD UREA NITROGEN 17 MG/DL (7-18); BUN/CREATININE RATIO 24.6 (5.4-32.0); CALCIUM 8.6 MG/DL (8.5-10.1); CHLORIDE 112 MMOL/L (99-107); CREATININE 0.69 MG/DL (0.60-1.10); GLUCOSE 85 MG/DL (70-104); MAGNESIUM 1.7 MG/DL (1.5-2.4); PHOSPHORUS 2.8 MG/DL (2.3-4.5); POTASSIUM 4.1 MMOL/L (3.5-5.1); SODIUM 145 MMOL/L (135-145); TOTAL CARBON DIOXIDE 25.5 MMOL/L (24-32); TOTAL PROTEIN 5.4 G/DL (6.4-8.2); eGFR > 90 ML/MIN
--- NOTE | 2020-10-17 06:27 | NUR ---
Problems reprioritized. Patient report given, questions answered & plan of care reviewed with HEIDY CLAROS.
--- NOTE | 2020-10-17 06:34 | NUR ---
Patient in room DELMER 359A. I have received report from ED WARD RN and had the opportunity to ask questions and assume patient care.
[2020-10-17 07:00] VITALS: BP 107/52
[2020-10-17] MEDS: lactose-reduced food (Ensure Enlive) - 237ml bottle PO SCH ×3 (08:00→17:53)
[2020-10-17] MEDS: lactobacillus rhamnosus 10,000 MMU CELLS/CAPSULE PO SCH ×2 (10:02→20:51)
[2020-10-17] MEDS: OLANZapine 5mg rapidly disint. tablet PO SCH ×2 (10:02→20:51)
[2020-10-17] MEDS: divalproex sod 125mg sprinkle cap PO SCH (10:02)
[2020-10-17] MEDS: donepezil 5mg tablet PO SCH (10:03)
[2020-10-17] MEDS: enoxaparin 40mg/0.4ml syringe SUBCUT SCH (10:04)
[2020-10-17] MEDS: nystatin 15 GM powder TP SCH ×3 (10:05→20:56)
[2020-10-17] MEDS: sertraline 25mg tablet PO SCH (10:05)
[2020-10-17 11:00] VITALS: BP 99/42
[2020-10-17] MEDS ORDERED: normal saline 1000ml 1,000 ML IV SCH (13:00)
--- NOTE | 2020-10-17 15:36 | NUR ---
F/u 10/17: Pt PO continues to fluctuate PO ~50-65% avg ensure enlive TIDWM and ~25% w/ occasional 50% avg meals including magic cup and additional kcal items listed below. Partially meeting needs w/ current PO hx; last scaled wt 10/05. Will monitor for updated wt to track trends and additional protein/kcal needs. Recommendations: 1) Continue pureed/nectar thick diet w/ feeder per ST recs; encourage PO 2) Continue vanilla yogurt WB, Magic Cup WL, [place] thickened shake WS; encourage PO 3) [place] thick Ensure Enlive TIDWM; encourage PO 4) Bowel care as needed 5) Scaled weight per rx Addendum: 10/17/20 at [address] Amended: Links added.
--- NOTE | 2020-10-17 18:16 | NUR ---
Problems reprioritized. Patient report given, questions answered & plan of care reviewed with HYACINTH GUERRA.
--- NOTE | 2020-10-17 18:38 | NUR ---
Patient in room DELMER 359A. I have received report from HYACINTH Dobbs and had the opportunity to ask questions and assume patient care.
[2020-10-17 20:00] VITALS: BP 91/43
[2020-10-17] MEDS: Melatonin 3mg tablet PO SCH (20:51)
[2020-10-18] VITALS: BP 102/53
--- NOTE | 2020-10-18 06:36 | NUR ---
Problems reprioritized. Patient report given, questions answered & plan of care reviewed with HYACINTH Sherman.
[2020-10-18 07:00] VITALS: BP 122/47
[2020-10-18] MEDS: lactose-reduced food (Ensure Enlive) - 237ml bottle PO SCH ×3 (08:00→18:38)
[2020-10-18] MEDS: OLANZapine 5mg rapidly disint. tablet PO SCH ×2 (09:17→20:08)
[2020-10-18] MEDS: sertraline 25mg tablet PO SCH (09:17)
[2020-10-18] MEDS: piperacillin/tazo 3.375gm/50ml 50 ML IV SCH ×2 (09:17→16:36)
[2020-10-18] MEDS: divalproex sod 125mg sprinkle cap PO SCH (09:18)
[2020-10-18] MEDS: lactobacillus rhamnosus 10,000 MMU CELLS/CAPSULE PO SCH ×2 (09:18→20:08)
[2020-10-18] MEDS: LORazepam 1 MG tablet PO SCH ×2 (09:18→16:38)
[2020-10-18] MEDS: nystatin 15 GM powder TP SCH ×3 (09:19→20:24)
[2020-10-18] MEDS: enoxaparin 40mg/0.4ml syringe SUBCUT SCH (09:19)
[2020-10-18] MEDS: donepezil 5mg tablet PO SCH (09:20)
[2020-10-18 18:00] VITALS: BP_SYST 112; BP_SYST 136; BP_DIAS 50; BP_DIAS 78
--- NOTE | 2020-10-18 18:44 | NUR ---
Problems reprioritized. Patient report given, questions answered & plan of care reviewed with Claudia CLAROS.
[2020-10-18] MEDS: Melatonin 3mg tablet PO SCH (20:08)
--- NOTE | 2020-10-18 22:29 | NUR ---
Problems reprioritized. Patient report given, questions answered & plan of care reviewed with HYACINTH De Leon.
--- NOTE | 2020-10-18 22:45 | NUR ---
Patient in room DELMER 359. I have received report from TYLER and had the opportunity to ask questions and assume patient care. ASSUMED CARE OF PT WITH RN STUDENT DANAY Grove AGREE WITH PREVIOUS MACHINE HOSTLER.
[2020-10-18 23:58] VITALS: BP 93/44
[2020-10-19] MEDS: piperacillin/tazo 3.375gm/50ml 50 ML IV SCH ×3 (00:11→16:09)
[2020-10-19] MEDS: LORazepam 1 MG tablet PO SCH ×3 (01:56→16:00)
--- NOTE | 2020-10-19 03:16 | NUR ---
Student documentation: I have reviewed and agree with all interventions, assessments performed and documented by DANAY Yee Medication Administration: For this medication-pass time frame, all medication were reviewed, dispensed, administered and documented per hospital policy by DANAY Grove
--- NOTE | 2020-10-19 06:18 | NUR ---
Patient in room DELMER 359. I have received report from Haley CLAROS and had the opportunity to ask questions and assume patient care.
--- NOTE | 2020-10-19 06:40 | NUR ---
Problems reprioritized. Patient report given, questions answered & plan of care reviewed with DL.
[2020-10-19 07:00] VITALS: BP 109/64
[2020-10-19] MEDS: sertraline 25mg tablet PO SCH (07:29)
[2020-10-19] MEDS: divalproex sod 125mg sprinkle cap PO SCH (07:29)
[2020-10-19] MEDS: donepezil 5mg tablet PO SCH (07:29)
[2020-10-19] MEDS: lactobacillus rhamnosus 10,000 MMU CELLS/CAPSULE PO SCH ×2 (07:29→20:42)
[2020-10-19] MEDS: OLANZapine 5mg rapidly disint. tablet PO SCH ×2 (07:29→20:43)
[2020-10-19] MEDS: enoxaparin 40mg/0.4ml syringe SUBCUT SCH (07:30)
[2020-10-19] MEDS: lactose-reduced food (Ensure Enlive) - 237ml bottle PO SCH ×3 (07:30→19:00)
[2020-10-19] MEDS: nystatin 15 GM powder TP SCH ×3 (07:41→20:44)
[2020-10-19 07:55] LABS: BASOPHILS % (AUTO) 0.5 % (0-1); EOSINOPHILS # (AUTO) 0.1 X10'3 (0-0.9); EOSINOPHILS % (AUTO) 1.2 % (0-6); HEMOGLOBIN 13.3 g/dl (14.0-17.9); LYMPHOCYTES # (AUTO) 1.4 X10'3 (1.1-4.8); LYMPHOCYTES % (AUTO) 13.4 % (21-51); MEAN CORPUSCULAR HEMOGLOBIN 30.1 PG (27.0-31.0); MEAN CORPUSCULAR VOLUME 88.5 FL (78-98); MEAN PLATELET VOLUME 8.8 FL (7.4-10.4); MONOCYTES # (AUTO) 0.7 X10'3 (0-0.9); MONOCYTES % (AUTO) 6.1 % (2-12); NEUTROPHILS # (AUTO) 8.5 X10'3 (1.8-7.7); NEUTROPHILS % (AUTO) 78.8 % (42-75); PLATELET COUNT 277 X10'3 (140-440); RED BLOOD COUNT 4.41 X10'6 (4.70-6.10); RED CELL DISTRIBUTION WIDTH 14.6 % (11.5-14.5); WHITE BLOOD COUNT 10.7 X10'3 (4.5-11.0)
[2020-10-19 08:39] LABS: ALANINE AMINOTRANSFERASE 36 U/L (12-78); ALBUMIN 2.4 G/DL (3.4-5.0); ALBUMIN/GLOBULIN RATIO 0.7 (1.1-1.5); ALKALINE PHOSPHATASE 67 IU/L (46-116); ANION GAP 10 (8-16); ASPARTATE AMINO TRANSFERASE 13 U/L (10-37); BILIRUBIN,TOTAL 0.3 MG/DL (0.1-1.0); BLOOD UREA NITROGEN 12 MG/DL (7-18); BUN/CREATININE RATIO 21.4 (5.4-32.0); CALCIUM 8.6 MG/DL (8.5-10.1); CHLORIDE 109 MMOL/L (99-107); CREATININE 0.56 MG/DL (0.60-1.10); GLUCOSE 93 MG/DL (70-104); MAGNESIUM 1.6 MG/DL (1.5-2.4); PHOSPHORUS 2.5 MG/DL (2.3-4.5); POTASSIUM 4.2 MMOL/L (3.5-5.1); SODIUM 142 MMOL/L (135-145); TOTAL CARBON DIOXIDE 23.5 MMOL/L (24-32); TOTAL PROTEIN 5.7 G/DL (6.4-8.2); eGFR > 90 ML/MIN
[2020-10-19 11:00] VITALS: BP 97/47
--- NOTE | 2020-10-19 13:07 | NUR ---
Dr. Medley talked to patient's at bedside regarding patient's condition and prognosis as well as hospital's effort to find placement for the patient. Hospice discussion was initiated by Dr. Medley the was listening but did not made a decision yet as of this time regarding comfort care code status. Myself and Yoselin, the charge nurse were at bedside when Dr. Medley was talking to the about patient condition and prognosis.
--- NOTE | 2020-10-19 18:24 | NUR ---
Problems reprioritized. Patient report given, questions answered & plan of care reviewed with Orquidea CLAROS.
--- NOTE | 2020-10-19 18:30 | NUR ---
Patient in room DELMER 359. I have received report from DL CLAROS and had the opportunity to ask questions and assume patient care.
[2020-10-19 20:00] VITALS: BP 110/56
[2020-10-19] MEDS: Melatonin 3mg tablet PO SCH (20:43)
[2020-10-20] VITALS: BP_SYST 83; BP_SYST 92; BP_DIAS 39; BP_DIAS 43
[2020-10-20] MEDS: LORazepam 1 MG tablet PO SCH ×3 (00:05→16:29)
[2020-10-20] MEDS: piperacillin/tazo 3.375gm/50ml 50 ML IV SCH ×2 (00:06→08:52)
[2020-10-20 01:30] VITALS: BP 93/49
--- NOTE | 2020-10-20 06:30 | NUR ---
Problems reprioritized. Patient report given, questions answered & plan of care reviewed with HEIDY CLAROS.
[2020-10-20 07:00] VITALS: BP 105/52
[2020-10-20 07:12] LABS: BASOPHILS % (AUTO) 0.3 % (0-1); EOSINOPHILS # (AUTO) 0.1 X10'3 (0-0.9); EOSINOPHILS % (AUTO) 1.1 % (0-6); HEMATOCRIT 37.7 % (42.0-52.0); HEMOGLOBIN 12.7 g/dl (14.0-17.9); LYMPHOCYTES # (AUTO) 1.3 X10'3 (1.1-4.8); LYMPHOCYTES % (AUTO) 11.2 % (21-51); MEAN CORPUSCULAR HEMOGLOBIN 29.8 PG (27.0-31.0); MEAN CORPUSCULAR HGB CONC 33.8 g/dL (33.0-36.5); MEAN CORPUSCULAR VOLUME 88.3 FL (78-98); MEAN PLATELET VOLUME 9.2 FL (7.4-10.4); MONOCYTES # (AUTO) 0.8 X10'3 (0-0.9); MONOCYTES % (AUTO) 7.2 % (2-12); NEUTROPHILS # (AUTO) 9.1 X10'3 (1.8-7.7); NEUTROPHILS % (AUTO) 80.2 % (42-75); PLATELET COUNT 273 X10'3 (140-440); RED BLOOD COUNT 4.27 X10'6 (4.70-6.10); RED CELL DISTRIBUTION WIDTH 14.9 % (11.5-14.5); WHITE BLOOD COUNT 11.3 X10'3 (4.5-11.0)
[2020-10-20 07:31] LABS: ALANINE AMINOTRANSFERASE 30 U/L (12-78); ALBUMIN 2.3 G/DL (3.4-5.0); ALBUMIN/GLOBULIN RATIO 0.7 (1.1-1.5); ALKALINE PHOSPHATASE 62 IU/L (46-116); ANION GAP 8 (8-16); ASPARTATE AMINO TRANSFERASE 13 U/L (10-37); BILIRUBIN,TOTAL 0.3 MG/DL (0.1-1.0); BLOOD UREA NITROGEN 12 MG/DL (7-18); BUN/CREATININE RATIO 18.2 (5.4-32.0); CALCIUM 8.4 MG/DL (8.5-10.1); CHLORIDE 108 MMOL/L (99-107); CREATININE 0.66 MG/DL (0.60-1.10); GLUCOSE 88 MG/DL (70-104); MAGNESIUM 1.6 MG/DL (1.5-2.4); PHOSPHORUS 2.4 MG/DL (2.3-4.5); POTASSIUM 4.1 MMOL/L (3.5-5.1); SODIUM 140 MMOL/L (135-145); TOTAL CARBON DIOXIDE 24.1 MMOL/L (24-32); TOTAL PROTEIN 5.4 G/DL (6.4-8.2); eGFR > 90 ML/MIN
[2020-10-20] MEDS: nystatin 15 GM powder TP SCH ×3 (08:00→22:24)
[2020-10-20] MEDS: lactose-reduced food (Ensure Enlive) - 237ml bottle PO SCH ×3 (08:00→18:07)
[2020-10-20] MEDS: enoxaparin 40mg/0.4ml syringe SUBCUT SCH (08:54)
[2020-10-20] MEDS: divalproex sod 125mg sprinkle cap PO SCH (08:54)
[2020-10-20] MEDS: donepezil 5mg tablet PO SCH (08:55)
[2020-10-20] MEDS: OLANZapine 5mg rapidly disint. tablet PO SCH ×2 (08:56→22:24)
[2020-10-20] MEDS: lactobacillus rhamnosus 10,000 MMU CELLS/CAPSULE PO SCH ×2 (08:56→22:23)
[2020-10-20] MEDS: sertraline 25mg tablet PO SCH (08:57)
[2020-10-20 10:37] VITALS: BP 104/47
--- NOTE | 2020-10-20 11:27 | NUR ---
Documented assessment by Nathalie GACRIA reviewed. Medications reviewed, dispensed, administered and documented appropriately in patients record. Lorazepam 1mg did not show scanned in record at 856 administration time, medication was appropriately administered with instructor at bedside. Gavino Bass Instructor
[2020-10-20 18:00] VITALS: BP 98/43
--- NOTE | 2020-10-20 18:52 | NUR ---
Problems reprioritized. Patient report given, questions answered & plan of care reviewed with HYACINTH ADKINS.
[2020-10-20] MEDS: Melatonin 3mg tablet PO SCH (22:24)
[2020-10-20 22:59] VITALS: BP 121/46
[2020-10-21 06:00] VITALS: BP 101/58
--- NOTE | 2020-10-21 06:42 | NUR ---
Problems reprioritized. Patient report given, questions answered & plan of care reviewed with Uriel CLAROS.
[2020-10-21 06:43] LABS: BASOPHILS % (AUTO) 0.2 % (0-1); EOSINOPHILS # (AUTO) 0.1 X10'3 (0-0.9); HEMATOCRIT 38.6 % (42.0-52.0); HEMOGLOBIN 12.9 g/dl (14.0-17.9); LYMPHOCYTES # (AUTO) 1.4 X10'3 (1.1-4.8); LYMPHOCYTES % (AUTO) 14.4 % (21-51); MEAN CORPUSCULAR HEMOGLOBIN 29.8 PG (27.0-31.0); MEAN CORPUSCULAR HGB CONC 33.4 g/dL (33.0-36.5); MEAN CORPUSCULAR VOLUME 89.2 FL (78-98); MEAN PLATELET VOLUME 9.7 FL (7.4-10.4); MONOCYTES # (AUTO) 0.8 X10'3 (0-0.9); MONOCYTES % (AUTO) 8.5 % (2-12); NEUTROPHILS # (AUTO) 7.6 X10'3 (1.8-7.7); NEUTROPHILS % (AUTO) 75.9 % (42-75); PLATELET COUNT 273 X10'3 (140-440); RED BLOOD COUNT 4.33 X10'6 (4.70-6.10); RED CELL DISTRIBUTION WIDTH 15.3 % (11.5-14.5)
[2020-10-21 07:16] LABS: ALANINE AMINOTRANSFERASE 31 U/L (12-78); ALBUMIN 2.4 G/DL (3.4-5.0); ALBUMIN/GLOBULIN RATIO 0.8 (1.1-1.5); ALKALINE PHOSPHATASE 69 IU/L (46-116); ANION GAP 6 (8-16); ASPARTATE AMINO TRANSFERASE 14 U/L (10-37); BILIRUBIN,TOTAL 0.3 MG/DL (0.1-1.0); BLOOD UREA NITROGEN 12 MG/DL (7-18); BUN/CREATININE RATIO 20.3 (5.4-32.0); CALCIUM 8.8 MG/DL (8.5-10.1); CHLORIDE 109 MMOL/L (99-107); CREATININE 0.59 MG/DL (0.60-1.10); GLUCOSE 88 MG/DL (70-104); MAGNESIUM 1.7 MG/DL (1.5-2.4); PHOSPHORUS 2.9 MG/DL (2.3-4.5); POTASSIUM 4.2 MMOL/L (3.5-5.1); SODIUM 140 MMOL/L (135-145); TOTAL PROTEIN 5.5 G/DL (6.4-8.2); eGFR > 90 ML/MIN
[2020-10-21] MEDS: lactose-reduced food (Ensure Enlive) - 237ml bottle PO SCH ×3 (08:00→18:07)
[2020-10-21] MEDS: divalproex sod 125mg sprinkle cap PO SCH (08:49)
[2020-10-21] MEDS: sertraline 25mg tablet PO SCH (08:49)
[2020-10-21] MEDS: lactobacillus rhamnosus 10,000 MMU CELLS/CAPSULE PO SCH ×2 (08:49→21:48)
[2020-10-21] MEDS: LORazepam 1 MG tablet PO SCH ×3 (08:50→15:37)
[2020-10-21] MEDS: donepezil 5mg tablet PO SCH (08:50)
[2020-10-21] MEDS: OLANZapine 5mg rapidly disint. tablet PO SCH ×2 (08:50→21:48)
[2020-10-21] MEDS: nystatin 15 GM powder TP SCH ×3 (08:51→21:49)
[2020-10-21] MEDS: enoxaparin 40mg/0.4ml syringe SUBCUT SCH (08:51)
--- NOTE | 2020-10-21 10:41 | NUR ---
Reassessment: Patient's PO intake stable with average 25% PO intake of meals though with recent improvement up to average 50-75% PO intake x 4 most recent meals. PO intake of ONS has significantly improved with mostly 100% acceptance (average 84% PO intake of ONS x 8 most recent ONS). Pt meeting estimated nutrient needs at this time with combined PO intake of meals and ONS. LBM 10/17, last received PRN bowel care 10/14. D/w dietary to send prune juice with next meal to further assist with bowel regularity, though pt would benefit from routine bowel care. Per MD note a discussion was had with patient's SO regarding possible hospice/comfort care. Pt remains DNR at this time. Will continue to follow closely and make recommendations as appropriate. Recommendations: 1) Continue pureed/nectar thick diet with feeder per ST recs; encourage PO 2) Continue vanilla yogurt WB, Magic Cup WL, [place] thickened shake WS; encourage PO 3) [place] thick Ensure Enlive TIDWM; encourage PO 4) Routine bowel care 5) Scaled weight per rx Addendum: 10/21/20 at [address] Amended: Links added.
[2020-10-21 11:00] VITALS: BP 121/55
--- NOTE | 2020-10-21 11:09 | NUR ---
Dr. Navas in to see patient.
[2020-10-21 18:00] VITALS: BP 96/48
--- NOTE | 2020-10-21 18:51 | NUR ---
Problems reprioritized. Patient report given, questions answered & plan of care reviewed with Anya RN.
[2020-10-21] MEDS: Melatonin 3mg tablet PO SCH (21:48)
[2020-10-22] VITALS: BP 105/47
[2020-10-22] MEDS: LORazepam 1 MG tablet PO SCH ×3 (00:45→18:04)
--- NOTE | 2020-10-22 06:40 | NUR ---
Patient in room DELMER 359. I have received report from Pat RN and had the opportunity to ask questions and assume patient care.
[2020-10-22 08:00] VITALS: BP 114/38
[2020-10-22] MEDS: lactose-reduced food (Ensure Enlive) - 237ml bottle PO SCH ×3 (08:00→18:00)
[2020-10-22] MEDS: OLANZapine 5mg rapidly disint. tablet PO SCH ×2 (09:30→19:59)
[2020-10-22] MEDS: donepezil 5mg tablet PO SCH (09:30)
[2020-10-22] MEDS: sertraline 25mg tablet PO SCH (09:30)
[2020-10-22] MEDS: lactobacillus rhamnosus 10,000 MMU CELLS/CAPSULE PO SCH ×2 (09:30→19:58)
[2020-10-22] MEDS: divalproex sod 125mg sprinkle cap PO SCH (09:30)
[2020-10-22] MEDS: nystatin 15 GM powder TP SCH ×3 (09:31→20:00)
[2020-10-22] MEDS: enoxaparin 40mg/0.4ml syringe SUBCUT SCH (09:31)
[2020-10-22 12:07] VITALS: BP 104/50
--- NOTE | 2020-10-22 18:53 | NUR ---
Patient in room [facility] 359. I have received report from LINDSEY CLAROS and had the opportunity to ask questions and assume patient care. Addendum: 10/22/20 at 1853 by Dhara Pelaez RN Amended: Links added.
[2020-10-22] MEDS: Melatonin 3mg tablet PO SCH (19:59)
[2020-10-22] MEDS: clonazePAM 0.5mg tablet PO PRN (19:59)
[2020-10-22 20:00] VITALS: BP 110/78
[2020-10-23] VITALS: BP 118/50
--- NOTE | 2020-10-23 00:35 | NUR ---
took po ativan as ordered took with apple sauce tolerated well.
[2020-10-23] MEDS: LORazepam 1 MG tablet PO SCH ×3 (00:40→16:52)
[2020-10-23 05:50] LABS: BASOPHILS # (AUTO) 0.1 X10'3 (0-0.2); BASOPHILS % (AUTO) 0.9 % (0-1); EOSINOPHILS # (AUTO) 0.1 X10'3 (0-0.9); EOSINOPHILS % (AUTO) 1.8 % (0-6); HEMATOCRIT 41.4 % (42.0-52.0); HEMOGLOBIN 13.8 g/dl (14.0-17.9); LYMPHOCYTES # (AUTO) 1.2 X10'3 (1.1-4.8); LYMPHOCYTES % (AUTO) 15.9 % (21-51); MEAN CORPUSCULAR HEMOGLOBIN 30.1 PG (27.0-31.0); MEAN CORPUSCULAR HGB CONC 33.4 g/dL (33.0-36.5); MEAN CORPUSCULAR VOLUME 90.3 FL (78-98); MEAN PLATELET VOLUME 9.7 FL (7.4-10.4); MONOCYTES # (AUTO) 0.9 X10'3 (0-0.9); MONOCYTES % (AUTO) 11.5 % (2-12); NEUTROPHILS # (AUTO) 5.3 X10'3 (1.8-7.7); NEUTROPHILS % (AUTO) 69.9 % (42-75); PLATELET COUNT 280 X10'3 (140-440); RED BLOOD COUNT 4.59 X10'6 (4.70-6.10); RED CELL DISTRIBUTION WIDTH 15.2 % (11.5-14.5); WHITE BLOOD COUNT 7.6 X10'3 (4.5-11.0)
[2020-10-23 06:16] LABS: ALANINE AMINOTRANSFERASE 40 U/L (12-78); ALBUMIN 2.8 G/DL (3.4-5.0); ALBUMIN/GLOBULIN RATIO 0.8 (1.1-1.5); ALKALINE PHOSPHATASE 81 IU/L (46-116); ANION GAP 7 (8-16); ASPARTATE AMINO TRANSFERASE 17 U/L (10-37); BILIRUBIN,TOTAL 0.3 MG/DL (0.1-1.0); BLOOD UREA NITROGEN 15 MG/DL (7-18); BUN/CREATININE RATIO 22.7 (5.4-32.0); CALCIUM 9.2 MG/DL (8.5-10.1); CHLORIDE 108 MMOL/L (99-107); CREATININE 0.66 MG/DL (0.60-1.10); GLUCOSE 80 MG/DL (70-104); MAGNESIUM 1.8 MG/DL (1.5-2.4); POTASSIUM 4.6 MMOL/L (3.5-5.1); SODIUM 141 MMOL/L (135-145); TOTAL CARBON DIOXIDE 25.7 MMOL/L (24-32); TOTAL PROTEIN 6.2 G/DL (6.4-8.2); eGFR > 90 ML/MIN
--- NOTE | 2020-10-23 06:24 | NUR ---
Problems reprioritized. Patient report given, questions answered & plan of care reviewed with Soledad Hanley. Addendum: 10/23/20 at 0625 by Dhara Pelaez RN Amended: Links added.
--- NOTE | 2020-10-23 06:30 | NUR ---
Patient in room DELMER 359. I have received report from HYACINTH Jules and had the opportunity to ask questions and assume patient care.
[2020-10-23 07:00] VITALS: BP 110/51
[2020-10-23] MEDS: divalproex sod 125mg sprinkle cap PO SCH (08:43)
[2020-10-23] MEDS: donepezil 5mg tablet PO SCH (08:43)
[2020-10-23] MEDS: sertraline 25mg tablet PO SCH (08:43)
[2020-10-23] MEDS: lactobacillus rhamnosus 10,000 MMU CELLS/CAPSULE PO SCH ×2 (08:43→19:54)
[2020-10-23] MEDS: enoxaparin 40mg/0.4ml syringe SUBCUT SCH (08:44)
[2020-10-23] MEDS: OLANZapine 5mg rapidly disint. tablet PO SCH ×2 (08:44→19:55)
[2020-10-23] MEDS: nystatin 15 GM powder TP SCH ×3 (08:45→21:00)
[2020-10-23] MEDS: lactose-reduced food (Ensure Enlive) - 237ml bottle PO SCH ×3 (08:53→18:04)
[2020-10-23 12:00] VITALS: BP 127/49
--- NOTE | 2020-10-23 14:20 | NUR ---
Patient in room DELMER 359. I have received report from HYACINTH Rowe and had the opportunity to ask questions and assume patient care.
--- NOTE | 2020-10-23 14:23 | NUR ---
Problems reprioritized. Patient report given, questions answered & plan of care reviewed with HYACINTH Laurent.
[2020-10-23 18:00] VITALS: BP 116/77
--- NOTE | 2020-10-23 18:45 | NUR ---
Problems reprioritized. Patient report given, questions answered & plan of care reviewed with HYACINTH Caldera.
--- NOTE | 2020-10-23 19:40 | NUR ---
PT FED ATE 90% OF DINNER TOLERATED WELL. GIVEN NECTER THICK LIQUIDS TO DRINK TOLERATED WELL.
[2020-10-23] MEDS: Melatonin 3mg tablet PO SCH (19:54)
--- NOTE | 2020-10-23 20:35 | NUR ---
SKIN CARE GIVEN POSITIONED TO COMFORT.
[2020-10-24] VITALS: BP 135/52
[2020-10-24] MEDS: LORazepam 1 MG tablet PO SCH ×3 (00:42→16:15)
--- NOTE | 2020-10-24 00:44 | NUR ---
PT REPOSITIONED AND TOOK HIS PO ATIVAN AND REPOSITIONED IN BED.
--- NOTE | 2020-10-24 06:20 | NUR ---
Patient in room DELMER 359. I have received report from HYACINTH Jules and had the opportunity to ask questions and assume patient care.
--- NOTE | 2020-10-24 06:26 | NUR ---
Problems reprioritized. Patient report given, questions answered & plan of care reviewed with JONA CLAROS. Addendum: 10/24/20 at 0627 by Dhara Pelaez RN Amended: Links added.
[2020-10-24 06:30] VITALS: BP 109/44
[2020-10-24] MEDS: sertraline 25mg tablet PO SCH (08:13)
[2020-10-24] MEDS: donepezil 5mg tablet PO SCH (08:13)
[2020-10-24] MEDS: lactobacillus rhamnosus 10,000 MMU CELLS/CAPSULE PO SCH ×2 (08:13→21:09)
[2020-10-24] MEDS: divalproex sod 125mg sprinkle cap PO SCH (08:13)
[2020-10-24] MEDS: OLANZapine 5mg rapidly disint. tablet PO SCH ×2 (08:13→21:10)
[2020-10-24] MEDS: enoxaparin 40mg/0.4ml syringe SUBCUT SCH (08:14)
[2020-10-24] MEDS: nystatin 15 GM powder TP SCH (08:14)
[2020-10-24] MEDS: lactose-reduced food (Ensure Enlive) - 237ml bottle PO SCH ×3 (08:14→18:08)
[2020-10-24 11:00] VITALS: BP 119/59
[2020-10-24 18:00] VITALS: BP 101/49
--- NOTE | 2020-10-24 18:30 | NUR ---
Patient in room DELMER 359. I have received report from JONA and had the opportunity to ask questions and assume patient care. ASSUMED CARE OF PT WITH RN STUDENT DANAY Grove
[2020-10-24] MEDS: Melatonin 3mg tablet PO SCH (21:09)
[2020-10-24 23:53] VITALS: BP 109/57
[2020-10-25] MEDS: LORazepam 1 MG tablet PO SCH ×3 (00:33→15:53)
--- NOTE | 2020-10-25 06:25 | NUR ---
Problems reprioritized. Patient report given, questions answered & plan of care reviewed with
--- NOTE | 2020-10-25 06:39 | NUR ---
Patient in room DELMER 359. I have received report from INDRA CLAROS and had the opportunity to ask questions and assume patient care.
[2020-10-25 07:18] VITALS: BP 131/52
[2020-10-25] MEDS: lactobacillus rhamnosus 10,000 MMU CELLS/CAPSULE PO SCH (07:51)
[2020-10-25] MEDS: donepezil 5mg tablet PO SCH (07:51)
[2020-10-25] MEDS: sertraline 25mg tablet PO SCH (07:52)
[2020-10-25] MEDS: OLANZapine 5mg rapidly disint. tablet PO SCH ×2 (07:52→19:57)
[2020-10-25] MEDS: divalproex sod 125mg sprinkle cap PO SCH (07:52)
[2020-10-25] MEDS: enoxaparin 40mg/0.4ml syringe SUBCUT SCH (07:53)
[2020-10-25] MEDS: nystatin 15 GM powder TP SCH (07:53)
[2020-10-25] MEDS: lactose-reduced food (Ensure Enlive) - 237ml bottle PO SCH ×3 (08:00→18:00)
[2020-10-25 11:03] VITALS: BP 141/63
--- NOTE | 2020-10-25 17:29 | NUR ---
F/u 10/25: Pt PO improving 75-100% avg ensure enlives w/ ~50% avg fluctuating pureed/NTL diet likely currently meeting minimum needs w/ additional foods provided; see below. LBM 10/25. Will continue to monitor.v Recommendations: 1) Continue pureed/nectar thick diet with feeder per ST recs; encourage PO 2) Continue vanilla yogurt WB, Magic Cup WL, [place] thickened shake WS; encourage PO 3) [place] thick Ensure Enlive TIDWM; encourage PO 4) Routine bowel care 5) Weekly scaled wts Addendum: 10/25/20 at [address] Amended: Links added.
--- NOTE | 2020-10-25 17:55 | NUR ---
Patients visiting wanting to change patients status to comfort care. Dr Jasmyne frias and shoe parts caser made aware . waiting for confirmation from DR ochoa. patient ambulated with PT see note. tolerated 50%-75% of each meal. Able to communicate with singlr word replies. will continue to monitor.
--- NOTE | 2020-10-25 18:35 | NUR ---
Problems reprioritized. Patient report given, questions answered & plan of care reviewed with Britany CLAROS.
--- NOTE | 2020-10-25 18:38 | NUR ---
Patient in room DELMER 359. I have received report from ADELE CLAROS and had the opportunity to ask questions and assume patient care. Addendum: 10/25/20 at 1838 by Dhara Pelaez RN Amended: Links added.
--- NOTE | 2020-10-25 18:40 | NUR ---
DR HEATH IN AND AWARE DESIRES PT TO BE ON COMFORT CARE. HE CALLED THE TO TALK TO HER ABOUT IT. ORDERS TO BE PUT IN.
[2020-10-25] MEDS ORDERED: morphine ORAL 5MG/0.25 ML (Conc. morphine) oral syringe PO PRN (18:45)
[2020-10-25 19:08] VITALS: BP 114/75
[2020-10-25] MEDS: Melatonin 3mg tablet PO SCH (19:56)
[2020-10-26] MEDS: LORazepam 1 MG tablet PO SCH ×4 (01:00→23:48)
--- NOTE | 2020-10-26 06:42 | NUR ---
Problems reprioritized. Patient report given, questions answered & plan of care reviewed with HEIDY CLAROS. Addendum: 10/26/20 at 0642 by Dhara Pelaez RN Amended: Links added.
--- NOTE | 2020-10-26 06:46 | NUR ---
Patient in room DELMER 359A. I have received report from HYACINTH KEBEDE and had the opportunity to ask questions and assume patient care.
[2020-10-26 07:00] VITALS: BP 137/65
--- NOTE | 2020-10-26 07:44 | NUR ---
Pt has been made DNR w/ comfort care per EMR. Will continue to follow. Rec: 1) routine bowel care Addendum: 10/26/20 at [address] Amended: Links added.
[2020-10-26] MEDS: lactose-reduced food (Ensure Enlive) - 237ml bottle PO SCH ×3 (08:00→18:00)
[2020-10-26] MEDS: divalproex sod 125mg sprinkle cap PO SCH (10:11)
[2020-10-26] MEDS: donepezil 5mg tablet PO SCH (10:12)
[2020-10-26] MEDS: sertraline 25mg tablet PO SCH (10:12)
[2020-10-26] MEDS: morphine 10mg/0.5ml (conc. morphine) oral syringe PO PRN (10:15)
[2020-10-26] MEDS: OLANZapine 5mg rapidly disint. tablet PO SCH ×2 (10:22→20:16)
[2020-10-26] MEDS: nystatin 15 GM powder TP SCH (10:24)
[2020-10-26 18:00] VITALS: BP 119/54
--- NOTE | 2020-10-26 18:29 | NUR ---
Patient in room DELMER 359A. I have received report from HYACINTH Bowden and had the opportunity to ask questions and assume patient care.
--- NOTE | 2020-10-26 19:03 | NUR ---
Problems reprioritized. Patient report given, questions answered & plan of care reviewed with HYACINTH SCOTT.
[2020-10-26] MEDS: Melatonin 3mg tablet PO SCH (20:12)
[2020-10-27] MEDS: morphine 10mg/0.5ml (conc. morphine) oral syringe PO PRN (03:31)
--- NOTE | 2020-10-27 06:40 | NUR ---
Patient in room DELMER 359. I have received report from Claudia CLAROS and had the opportunity to ask questions and assume patient care.
--- NOTE | 2020-10-27 06:42 | NUR ---
Problems reprioritized. Patient report given, questions answered & plan of care reviewed with HYACINTH Perez and HYACINTH Espinosa.
--- NOTE | 2020-10-27 06:53 | NUR ---
Patient in room DELMER 359. I have received report from Clauida CLAROS and had the opportunity to ask questions and assume patient care.
[2020-10-27] MEDS: donepezil 5mg tablet PO SCH (09:54)
[2020-10-27] MEDS: LORazepam 1 MG tablet PO SCH ×3 (09:55→23:30)
[2020-10-27] MEDS: divalproex sod 125mg sprinkle cap PO SCH (09:57)
[2020-10-27] MEDS: lactose-reduced food (Ensure Enlive) - 237ml bottle PO SCH ×3 (09:58→21:45)
[2020-10-27] MEDS: sertraline 25mg tablet PO SCH (09:59)
[2020-10-27] MEDS: OLANZapine 5mg rapidly disint. tablet PO SCH ×2 (10:01→21:35)
[2020-10-27] MEDS: nystatin 15 GM powder TP SCH (10:05)
[2020-10-27 10:47] VITALS: BP 114/49
--- NOTE | 2020-10-27 18:22 | NUR ---
Problems reprioritized. Patient report given, questions answered & plan of care reviewed with Pat RN.
[2020-10-27 19:00] VITALS: BP 131/56
[2020-10-27] MEDS: Melatonin 3mg tablet PO SCH (21:36)
--- NOTE | 2020-10-28 06:38 | NUR ---
Patient in room DELMER 359. I have received report from Pat RN and had the opportunity to ask questions and assume patient care.
[2020-10-28 07:00] VITALS: BP 130/40
[2020-10-28] MEDS: OLANZapine 5mg rapidly disint. tablet PO SCH ×2 (08:43→20:21)
[2020-10-28] MEDS: divalproex sod 125mg sprinkle cap PO SCH (08:43)
[2020-10-28] MEDS: LORazepam 1 MG tablet PO SCH ×2 (08:44→16:07)
[2020-10-28] MEDS: lactose-reduced food (Ensure Enlive) - 237ml bottle PO SCH ×3 (08:44→18:00)
[2020-10-28] MEDS: sertraline 25mg tablet PO SCH (08:44)
[2020-10-28] MEDS: donepezil 5mg tablet PO SCH (08:44)
[2020-10-28] MEDS: nystatin 15 GM powder TP SCH (08:59)
--- NOTE | 2020-10-28 18:28 | NUR ---
Problems reprioritized. Patient report given, questions answered & plan of care reviewed with Luis Fernando CLAROS.
--- NOTE | 2020-10-28 18:40 | NUR ---
I have received report from HYACINTH Espinosa and had the opportunity to ask questions and assume patient care.
[2020-10-28] MEDS: Melatonin 3mg tablet PO SCH (20:21)
[2020-10-28 23:23] VITALS: BP 101/47
[2020-10-29] MEDS: LORazepam 1 MG tablet PO SCH ×3 (00:16→15:41)
--- NOTE | 2020-10-29 01:23 | NUR ---
Patient received Ativan as ordered. Patient scanned, verified per hospital policy, a long with the medication. HYACINTH Almanza verified medication was given
--- NOTE | 2020-10-29 06:11 | NUR ---
Problems reprioritized. Patient report given, questions answered & plan of care reviewed with HYACINTH Xiong.
--- NOTE | 2020-10-29 06:20 | NUR ---
received report from opal crooks
[2020-10-29] MEDS: divalproex sod 125mg sprinkle cap PO SCH (07:57)
[2020-10-29] MEDS: donepezil 5mg tablet PO SCH (07:59)
[2020-10-29] MEDS: sertraline 25mg tablet PO SCH (07:59)
[2020-10-29] MEDS: OLANZapine 5mg rapidly disint. tablet PO SCH ×2 (08:00→21:55)
[2020-10-29] MEDS: nystatin 15 GM powder TP SCH (08:00)
[2020-10-29] MEDS: lactose-reduced food (Ensure Enlive) - 237ml bottle PO SCH ×3 (08:01→18:00)
[2020-10-29 10:00] VITALS: BP 114/56
--- NOTE | 2020-10-29 15:58 | NUR ---
PAGER ID: [phone] MESSAGE: Diego [place] Room 4017. Per pharmacy, scheduled lorazepam is going to tomorrow? Want me to extend it? Thanks, Jessica [phone]
--- NOTE | 2020-10-29 18:20 | NUR ---
Patient in room ORTHO 4017. I have received report from Inga CLAROS and had the opportunity to ask questions and assume patient care.
--- NOTE | 2020-10-29 18:20 | NUR ---
gave report to opal ayon
[2020-10-29] MEDS: Melatonin 3mg tablet PO SCH (21:55)
[2020-10-29 22:00] VITALS: BP 122/54
[2020-10-30] MEDS: LORazepam 1 MG tablet PO SCH ×3 (00:22→18:30)
[2020-10-30 06:00] VITALS: BP 125/66
--- NOTE | 2020-10-30 06:15 | NUR ---
Problems reprioritized. Patient report given, questions answered & plan of care reviewed with Carmen CLAROS.
[2020-10-30] MEDS: divalproex sod 125mg sprinkle cap PO SCH (07:39)
[2020-10-30] MEDS: donepezil 5mg tablet PO SCH (07:39)
[2020-10-30] MEDS: sertraline 25mg tablet PO SCH (07:39)
[2020-10-30] MEDS: OLANZapine 5mg rapidly disint. tablet PO SCH ×2 (07:40→20:40)
[2020-10-30] MEDS: lactose-reduced food (Ensure Enlive) - 237ml bottle PO SCH ×3 (08:00→18:19)
[2020-10-30] MEDS: nystatin 15 GM powder TP SCH (08:00)
--- NOTE | 2020-10-30 18:14 | NUR ---
Problems reprioritized. Patient report given, questions answered & plan of care reviewed with Gilda CLAROS.
--- NOTE | 2020-10-30 18:15 | NUR ---
Patient in room ORTHO 4017. I have received report from Carmen CLAROS and had the opportunity to ask questions and assume patient care.
[2020-10-30] MEDS ORDERED: LORazepam 1 MG tablet PO PRN (18:20)
[2020-10-30] MEDS: Melatonin 3mg tablet PO SCH (20:40)
[2020-10-31] MEDS: LORazepam 1 MG tablet PO SCH ×3 (00:49→16:19)
[2020-10-31] MEDS: clonazePAM 0.5mg tablet PO PRN ×2 (06:08→20:24)
--- NOTE | 2020-10-31 06:11 | NUR ---
bed alarm going off. pt found by RNs inbetween the two side rails long term out of bed. pt returned to bed. yelling and upset. medications given as ordered
--- NOTE | 2020-10-31 06:20 | NUR ---
Problems reprioritized. Patient report given, questions answered & plan of care reviewed with Carmen CLAROS.
--- NOTE | 2020-10-31 06:44 | NUR ---
Patient in room ORTHO 4017. I have received report from NOC Shift RN and had the opportunity to ask questions and assume patient care.
[2020-10-31] MEDS: donepezil 5mg tablet PO SCH (08:09)
[2020-10-31] MEDS: divalproex sod 125mg sprinkle cap PO SCH (08:09)
[2020-10-31] MEDS: sertraline 25mg tablet PO SCH (08:09)
[2020-10-31] MEDS: nystatin 15 GM powder TP SCH (08:09)
[2020-10-31] MEDS: OLANZapine 5mg rapidly disint. tablet PO SCH ×2 (08:09→20:23)
[2020-10-31] MEDS: lactose-reduced food (Ensure Enlive) - 237ml bottle PO SCH ×3 (08:16→18:00)
[2020-10-31 10:00] VITALS: BP 115/62
--- NOTE | 2020-10-31 13:04 | NUR ---
Pt has been made DNR w/ comfort care per EMR. [facility] 10/31. Will continue to follow. Rec: 1) bowel care per rx Addendum: 10/31/20 at [address] Amended: Links added.
--- NOTE | 2020-10-31 18:12 | NUR ---
report rec'd from opal Morales.
--- NOTE | 2020-10-31 18:25 | NUR ---
pt is on Comfort Care measures, VS only once per shift.
[2020-10-31] MEDS: Melatonin 3mg tablet PO SCH (20:23)
[2020-11-01] MEDS: LORazepam 1 MG tablet PO SCH ×3 (00:06→15:48)
--- NOTE | 2020-11-01 06:21 | NUR ---
REPORT GIVEN TO HYACINTH ANGULO.
--- NOTE | 2020-11-01 07:01 | NUR ---
Patient in room ORTHO 4017. I have received report from Aracelis CLAROS and had the opportunity to ask questions and assume patient care.
[2020-11-01] MEDS: sertraline 25mg tablet PO SCH (08:01)
[2020-11-01] MEDS: donepezil 5mg tablet PO SCH (08:01)
[2020-11-01] MEDS: divalproex sod 125mg sprinkle cap PO SCH (08:02)
[2020-11-01] MEDS: lactose-reduced food (Ensure Enlive) - 237ml bottle PO SCH ×3 (08:08→18:52)
[2020-11-01] MEDS: nystatin 15 GM powder TP SCH (08:15)
[2020-11-01] MEDS: OLANZapine 5mg rapidly disint. tablet PO SCH ×2 (09:03→20:22)
[2020-11-01 11:00] VITALS: BP 109/47
[2020-11-01 18:00] VITALS: BP 108/65
--- NOTE | 2020-11-01 18:10 | NUR ---
Problems reprioritized. Patient report given, questions answered & plan of care reviewed with Wilma CLAROS.
--- NOTE | 2020-11-01 18:30 | NUR ---
Patient in room ORTHO 4017. I have received report from HYACINTH JACOBS and had the opportunity to ask questions and assume patient care.
[2020-11-01] MEDS: Melatonin 3mg tablet PO SCH (20:22)
[2020-11-01 22:00] VITALS: BP 94/67
[2020-11-02] MEDS: LORazepam 1 MG tablet PO SCH ×4 (00:26→23:27)
--- NOTE | 2020-11-02 06:22 | NUR ---
Problems reprioritized. Patient report given, questions answered & plan of care reviewed with HYACINTH DALAL.
--- NOTE | 2020-11-02 06:23 | NUR ---
Patient in room [facility]THO 4017. I have received report from Wilma CLAROS and had the opportunity to ask questions and assume patient care.
[2020-11-02] MEDS: donepezil 5mg tablet PO SCH (08:23)
[2020-11-02] MEDS: sertraline 25mg tablet PO SCH (08:24)
[2020-11-02] MEDS: nystatin 15 GM powder TP SCH (08:24)
[2020-11-02] MEDS: divalproex sod 125mg sprinkle cap PO SCH (08:24)
[2020-11-02] MEDS: OLANZapine 5mg rapidly disint. tablet PO SCH ×2 (08:26→21:46)
[2020-11-02] MEDS: lactose-reduced food (Ensure Enlive) - 237ml bottle PO SCH ×3 (08:27→18:00)
[2020-11-02 10:00] VITALS: BP 103/51
--- NOTE | 2020-11-02 14:20 | NUR ---
Patient in room [facility] 359. I have received report from Yolanda CLAROS from [facility] and had the opportunity to ask questions and assume patient care.
--- NOTE | 2020-11-02 14:29 | NUR ---
Problems reprioritized. Patient report given, questions answered & plan of care reviewed with Van CLAROS.
--- NOTE | 2020-11-02 14:54 | NUR ---
Patient transported in the bed to [facility], belongings and chart sent with patient. Met by the bedside by Van CLAROS who assumed patient care.
[2020-11-02 15:15] VITALS: BP 100/50
--- NOTE | 2020-11-02 18:37 | NUR ---
Patient in room [facility] 359. I have received report from Van CLAROS and had the opportunity to ask questions and assume patient care.
[2020-11-02 20:00] VITALS: BP 115/48
[2020-11-02] MEDS: Melatonin 3mg tablet PO SCH (21:45)
--- NOTE | 2020-11-03 06:35 | NUR ---
Problems reprioritized. Patient report given, questions answered & plan of care reviewed with Yoselin CLAROS.
--- NOTE | 2020-11-03 06:40 | NUR ---
Patient in room [facility] 359. I have received report from Adriana CLAROS and had the opportunity to ask questions and assume patient care.
[2020-11-03 07:22] VITALS: BP 114/67
[2020-11-03] MEDS: divalproex sod 125mg sprinkle cap PO SCH (07:46)
[2020-11-03] MEDS: LORazepam 1 MG tablet PO SCH ×2 (07:47→15:57)
[2020-11-03] MEDS: OLANZapine 5mg rapidly disint. tablet PO SCH ×2 (07:47→20:13)
[2020-11-03] MEDS: sertraline 25mg tablet PO SCH (07:47)
[2020-11-03] MEDS: donepezil 5mg tablet PO SCH (07:47)
[2020-11-03] MEDS: lactose-reduced food (Ensure Enlive) - 237ml bottle PO SCH ×3 (07:52→18:03)
[2020-11-03] MEDS: nystatin 15 GM powder TP SCH (08:00)
--- NOTE | 2020-11-03 09:30 | NUR ---
eladio care given after mod sized formed brown stool. eladio area slightly pink. Will not stay positioned with pillows. squirms until gets self back onto Lt side.
--- NOTE | 2020-11-03 10:00 | NUR ---
patient unwilling to corporate in wound care this AM. Addendum: 11/03/20 at 1001 by Shine WALTER Amended: Links added.
--- NOTE | 2020-11-03 10:00 | NUR ---
Attempted to preform wound care. patient unwilling to corporate in wound care this AM.
--- NOTE | 2020-11-03 10:33 | NUR ---
patient unwilling to let me do a full physical assessment. Only able to do a partial assessment at this time. Addendum: 11/03/20 at 1033 by Shine WALTER Amended: Links added.
--- NOTE | 2020-11-03 11:21 | NUR ---
Patient had medium sized very hard Bowel movement. Addendum: 11/03/20 at 1121 by Shine WALTER Amended: Links added.
--- NOTE | 2020-11-03 12:15 | NUR ---
Patient in room [facility] 359. I have received report from Yoselin CLAROS and had the opportunity to ask questions and assume patient care.
[2020-11-03 18:00] VITALS: BP 130/56
--- NOTE | 2020-11-03 18:34 | NUR ---
I have received report from HYACINTH Perry and had the opportunity to ask questions and assume patient care.
--- NOTE | 2020-11-03 18:35 | NUR ---
Problems reprioritized. Patient report given, questions answered & plan of care reviewed with Luis Fernando CLAROS.
[2020-11-03] MEDS: Melatonin 3mg tablet PO SCH (20:13)
[2020-11-04] MEDS: LORazepam 1 MG tablet PO SCH ×3 (00:22→16:15)
[2020-11-04] MEDS: clonazePAM 0.5mg tablet PO PRN (01:50)
--- NOTE | 2020-11-04 06:02 | NUR ---
Patient in room [facility] 359. I have received report from Luis Fernando CLAROS and had the opportunity to ask questions and assume patient care.
--- NOTE | 2020-11-04 06:02 | NUR ---
Problems reprioritized. Patient report given, questions answered & plan of care reviewed with HYACINTH Espinosa.
[2020-11-04 07:00] VITALS: BP 108/46
[2020-11-04] MEDS: donepezil 5mg tablet PO SCH (08:20)
[2020-11-04] MEDS: divalproex sod 125mg sprinkle cap PO SCH (08:20)
[2020-11-04] MEDS: lactose-reduced food (Ensure Enlive) - 237ml bottle PO SCH ×3 (08:21→18:11)
[2020-11-04] MEDS: OLANZapine 5mg rapidly disint. tablet PO SCH ×2 (08:21→21:14)
[2020-11-04] MEDS: sertraline 25mg tablet PO SCH (08:21)
[2020-11-04] MEDS: nystatin 15 GM powder TP SCH (08:22)
--- NOTE | 2020-11-04 15:14 | NUR ---
PAGER ID: [phone] MESSAGE: Francisca Surg [id number] RE: [id number] Diego Salinas. Sertaline and temazepam will fall off the Emar tomorrow. Can you renew?
[2020-11-04 18:00] VITALS: BP 146/76
--- NOTE | 2020-11-04 18:05 | NUR ---
Problems reprioritized. Patient report given, questions answered & plan of care reviewed with Luis Fernando CLAROS.
--- NOTE | 2020-11-04 18:48 | NUR ---
Patient in room [facility] 359. I have received report from HYACINTH Espinosa and had the opportunity to ask questions and assume patient care.
[2020-11-04] MEDS: Melatonin 3mg tablet PO SCH (21:13)
[2020-11-05] MEDS: LORazepam 1 MG tablet PO SCH ×3 (00:04→16:00)
[2020-11-05] MEDS: clonazePAM 0.5mg tablet PO PRN (02:42)
--- NOTE | 2020-11-05 05:46 | NUR ---
0520: Patient was found with his quiroz pulled out. Will monitor for retention, no visible trauma to penis, balloon is was not fully inflated.
--- NOTE | 2020-11-05 06:11 | NUR ---
Problems reprioritized. Patient report given, questions answered & plan of care reviewed with HYACINTH Bowden.
--- NOTE | 2020-11-05 06:14 | NUR ---
Patient in room DEL[facility] 359A. I have received report from HYACINTH RUDD and had the opportunity to ask questions and assume patient care.
[2020-11-05] MEDS: lactose-reduced food (Ensure Enlive) - 237ml bottle PO SCH ×3 (08:00→18:00)
[2020-11-05] MEDS: sertraline 25mg tablet PO SCH (09:26)
[2020-11-05] MEDS: OLANZapine 5mg rapidly disint. tablet PO SCH ×2 (09:26→20:17)
[2020-11-05] MEDS: divalproex sod 125mg sprinkle cap PO SCH (09:26)
[2020-11-05] MEDS: nystatin 15 GM powder TP SCH (09:27)
[2020-11-05] MEDS: donepezil 5mg tablet PO SCH (09:27)
[2020-11-05 11:00] VITALS: BP 100/49
[2020-11-05] MEDS: morphine 10mg/0.5ml (conc. morphine) oral syringe PO PRN (13:23)
[2020-11-05 18:00] VITALS: BP 145/56
--- NOTE | 2020-11-05 18:20 | NUR ---
Patient in room [facility] 359. I have received report from HYACINTH Bowden and had the opportunity to ask questions and assume patient care.
--- NOTE | 2020-11-05 19:40 | NUR ---
Problems reprioritized. Patient report given, questions answered & plan of care reviewed with HYACINTH GALLO.
[2020-11-05] MEDS: Melatonin 3mg tablet PO SCH (20:17)
--- NOTE | 2020-11-06 06:16 | NUR ---
Problems reprioritized. Patient report given, questions answered & plan of care reviewed with HYACINTH Sauer.
[2020-11-06 07:00] VITALS: BP 126/53
--- NOTE | 2020-11-06 07:17 | NUR ---
Patient in room [facility] 359. I have received report from WAI CLAROS and had the opportunity to ask questions and assume patient care.
[2020-11-06] MEDS: nystatin 15 GM powder TP SCH (08:00)
[2020-11-06] MEDS: OLANZapine 5mg rapidly disint. tablet PO SCH ×2 (08:00→20:46)
[2020-11-06] MEDS: lactose-reduced food (Ensure Enlive) - 237ml bottle PO SCH ×3 (08:00→18:07)
[2020-11-06] MEDS: divalproex sod 125mg sprinkle cap PO SCH (08:57)
[2020-11-06] MEDS: LORazepam 1 MG tablet PO SCH ×3 (08:57→16:00)
[2020-11-06] MEDS: sertraline 25mg tablet PO SCH (08:58)
[2020-11-06] MEDS: donepezil 5mg tablet PO SCH (08:58)
--- NOTE | 2020-11-06 18:45 | NUR ---
All cares given to patient. patient able to tolerate all meals with minimal difficulty. Report given to Britany CLAROS
--- NOTE | 2020-11-06 18:58 | NUR ---
Patient in room [facility] 359. I have received report from ADELE CLAROS and had the opportunity to ask questions and assume patient care. Addendum: 11/06/20 at 1858 by Dhara Pelaez RN Amended: Links added.
[2020-11-06 20:00] VITALS: BP 133/55
[2020-11-06] MEDS: Melatonin 3mg tablet PO SCH (20:46)
[2020-11-07] VITALS: BP_SYST 122; BP_SYST 133; BP_DIAS 55; BP_DIAS 63
[2020-11-07] MEDS: LORazepam 1 MG tablet PO SCH ×3 (00:11→15:02)
[2020-11-07] MEDS: clonazePAM 0.5mg tablet PO PRN (02:59)
[2020-11-07] MEDS: morphine 10mg/0.5ml (conc. morphine) oral syringe PO PRN ×2 (02:59→20:26)
--- NOTE | 2020-11-07 03:04 | NUR ---
PT AGITATED AND KICKED AT NURSE AND KICKING LEGS OVER BED RAILS MUMBLING. MEDICATED WITH CLONOPIN AND ROXANOL SHOWING SIGNS OF SPASMS AND PAIN.
--- NOTE | 2020-11-07 06:40 | NUR ---
Patient in room [facility] 359. I have received report from ANNA CLAROS and had the opportunity to ask questions and assume patient care.
--- NOTE | 2020-11-07 06:41 | NUR ---
Problems reprioritized. Patient report given, questions answered & plan of care reviewed with ADELE CLAROS. Addendum: 11/07/20 at 0644 by Dhara Pelaez RN Amended: Links added.
[2020-11-07 07:00] VITALS: BP 106/56
[2020-11-07] MEDS: lactose-reduced food (Ensure Enlive) - 237ml bottle PO SCH ×3 (08:00→18:26)
[2020-11-07] MEDS: donepezil 5mg tablet PO SCH (08:53)
[2020-11-07] MEDS: divalproex sod 125mg sprinkle cap PO SCH (08:53)
[2020-11-07] MEDS: sertraline 25mg tablet PO SCH (08:54)
[2020-11-07] MEDS: nystatin 15 GM powder TP SCH (08:55)
[2020-11-07] MEDS: OLANZapine 5mg rapidly disint. tablet PO SCH ×2 (08:55→20:25)
--- NOTE | 2020-11-07 13:48 | NUR ---
Pt has been made DNR w/ comfort care per EMR. [facility] 11/05. Will continue to follow. Rec: 1) bowel care per rx Addendum: 11/07/20 at [address] Amended: Links added.
[2020-11-07 18:00] VITALS: BP 103/45
--- NOTE | 2020-11-07 18:20 | NUR ---
Received report from HYACINTH Sauer and had the opportunity to ask questions and assume patient care. Call light and items of frequent use within reach. In no apparent distress. Will continue to monitor.
--- NOTE | 2020-11-07 18:26 | NUR ---
all cares given to patient. came in to see patient. Tolerated 75% of each meal. No new cares or concerns. Report given to Claudia CLAROS
[2020-11-07] MEDS: Melatonin 3mg tablet PO SCH (20:25)
[2020-11-08] MEDS: LORazepam 1 MG tablet PO SCH ×3 (02:13→16:26)
--- NOTE | 2020-11-08 06:45 | NUR ---
Patient in room [facility]MER 359A. I have received report from HYACINTH SCOTT and had the opportunity to ask questions and assume patient care.
[2020-11-08 07:00] VITALS: BP 120/61
[2020-11-08] MEDS: lactose-reduced food (Ensure Enlive) - 237ml bottle PO SCH ×3 (08:00→18:48)
[2020-11-08] MEDS: OLANZapine 5mg rapidly disint. tablet PO SCH ×2 (11:34→20:25)
[2020-11-08] MEDS: sertraline 25mg tablet PO SCH (11:35)
[2020-11-08] MEDS: divalproex sod 125mg sprinkle cap PO SCH (11:36)
[2020-11-08] MEDS: donepezil 5mg tablet PO SCH (11:36)
[2020-11-08] MEDS: nystatin 15 GM powder TP SCH (16:34)
--- NOTE | 2020-11-08 18:40 | NUR ---
Patient in room DELMER 359A. I have received report from HYACINTH Bowden and had the opportunity to ask questions and assume patient care.
[2020-11-08 19:40] VITALS: BP 109/52
--- NOTE | 2020-11-08 19:43 | NUR ---
Problems reprioritized. Patient report given, questions answered & plan of care reviewed with HYACINTH SCOTT.
[2020-11-08] MEDS: Melatonin 3mg tablet PO SCH (20:25)
[2020-11-09] MEDS: LORazepam 1 MG tablet PO SCH ×3 (00:07→16:00)
[2020-11-09] MEDS: morphine 10mg/0.5ml (conc. morphine) oral syringe PO PRN (02:47)
--- NOTE | 2020-11-09 06:38 | NUR ---
Problems reprioritized. Patient report given, questions answered & plan of care reviewed with HYACINTH Bowden.
--- NOTE | 2020-11-09 06:53 | NUR ---
Patient in room [facility]MER 359A. I have received report from HYACINTH SCOTT and had the opportunity to ask questions and assume patient care.
[2020-11-09 07:00] VITALS: BP 124/54
[2020-11-09] MEDS: lactose-reduced food (Ensure Enlive) - 237ml bottle PO SCH ×4 (08:00→21:02)
[2020-11-09] MEDS: divalproex sod 125mg sprinkle cap PO SCH (09:59)
[2020-11-09] MEDS: sertraline 25mg tablet PO SCH (09:59)
[2020-11-09] MEDS: donepezil 5mg tablet PO SCH (10:00)
[2020-11-09] MEDS: OLANZapine 5mg rapidly disint. tablet PO SCH ×2 (10:00→21:02)
[2020-11-09] MEDS: nystatin 15 GM powder TP SCH (10:01)
--- NOTE | 2020-11-09 18:37 | NUR ---
Patient in room [facility] 359. I have received report from HYACINTH Bowden and had the opportunity to ask questions and assume patient care.
--- NOTE | 2020-11-09 19:01 | NUR ---
Problems reprioritized. Patient report given, questions answered & plan of care reviewed with HYACINTH GALLO.
[2020-11-09 20:00] VITALS: BP 98/52
[2020-11-09] MEDS: Melatonin 3mg tablet PO SCH (21:01)
--- NOTE | 2020-11-10 06:23 | NUR ---
Problems reprioritized. Patient report given, questions answered & plan of care reviewed with HYACINTH Rowe.
[2020-11-10] MEDS: divalproex sod 125mg sprinkle cap PO SCH (09:18)
[2020-11-10] MEDS: donepezil 5mg tablet PO SCH (09:18)
[2020-11-10] MEDS: LORazepam 1 MG tablet PO SCH ×3 (09:18→16:42)
[2020-11-10] MEDS: sertraline 25mg tablet PO SCH (09:19)
[2020-11-10] MEDS: OLANZapine 5mg rapidly disint. tablet PO SCH ×2 (09:19→20:17)
[2020-11-10] MEDS: nystatin 15 GM powder TP SCH (09:25)
[2020-11-10] MEDS: lactose-reduced food (Ensure Enlive) - 237ml bottle PO SCH ×2 (13:00→18:00)
--- NOTE | 2020-11-10 18:04 | NUR ---
Problems reprioritized. Patient report given, questions answered & plan of care reviewed with HYACINTH Ochoa.
--- NOTE | 2020-11-10 18:06 | NUR ---
Patient in room DELMER 359. I have received report from HYACINTH Rowe and had the opportunity to ask questions and assume patient care.
[2020-11-10 20:00] VITALS: BP 106/52
[2020-11-10] MEDS: Melatonin 3mg tablet PO SCH (20:17)
[2020-11-11] MEDS: LORazepam 1 MG tablet PO SCH ×3 (00:34→16:45)
--- NOTE | 2020-11-11 06:49 | NUR ---
Problems reprioritized. Patient report given, questions answered & plan of care reviewed with HYACINTH Rowe.
--- NOTE | 2020-11-11 06:58 | NUR ---
Patient in room [facility] 359. I have received report from Xiomara Mcgill RN and had the opportunity to ask questions and assume patient care.
[2020-11-11 07:21] VITALS: BP 112/63
[2020-11-11] MEDS: OLANZapine 5mg rapidly disint. tablet PO SCH ×2 (08:56→20:28)
[2020-11-11] MEDS: sertraline 25mg tablet PO SCH (08:56)
[2020-11-11] MEDS: divalproex sod 125mg sprinkle cap PO SCH (08:56)
[2020-11-11] MEDS: donepezil 5mg tablet PO SCH (08:56)
[2020-11-11] MEDS: lactose-reduced food (Ensure Enlive) - 237ml bottle PO SCH ×3 (08:57→18:00)
[2020-11-11] MEDS: nystatin 15 GM powder TP SCH (08:57)
[2020-11-11 18:00] VITALS: BP 121/61
--- NOTE | 2020-11-11 18:08 | NUR ---
Problems reprioritized. Patient report given, questions answered & plan of care reviewed with Xiomara Mcgill RN.
[2020-11-11] MEDS: Melatonin 3mg tablet PO SCH (20:28)
[2020-11-11] MEDS: docusate sodium 100mg/10ml UD cup PO SCH (20:28)
[2020-11-12] MEDS: LORazepam 1 MG tablet PO SCH ×3 (01:45→15:17)
[2020-11-12 06:00] VITALS: BP 130/59
--- NOTE | 2020-11-12 06:30 | NUR ---
Problems reprioritized. Patient report given, questions answered & plan of care reviewed with Carmen CLAROS.
--- NOTE | 2020-11-12 06:33 | NUR ---
Patient in room [facility] 359. I have received report from Gabriela Bingham R.N. and had the opportunity to ask questions and assume patient care.
--- NOTE | 2020-11-12 07:22 | NUR ---
Patient moves continuously in bed. Addendum: 11/12/20 at 0723 by Carmen Saleh RN Amended: Links added.
[2020-11-12] MEDS: docusate sodium 100mg/10ml UD cup PO SCH ×2 (08:20→20:58)
[2020-11-12] MEDS: nystatin 15 GM powder TP SCH (08:20)
[2020-11-12] MEDS: divalproex sod 125mg sprinkle cap PO SCH (08:21)
[2020-11-12] MEDS: sertraline 25mg tablet PO SCH (08:21)
[2020-11-12] MEDS: donepezil 5mg tablet PO SCH (08:21)
[2020-11-12] MEDS: lactose-reduced food (Ensure Enlive) - 237ml bottle PO SCH ×3 (08:22→18:00)
[2020-11-12] MEDS: OLANZapine 5mg rapidly disint. tablet PO SCH ×2 (08:24→20:49)
--- NOTE | 2020-11-12 15:07 | NUR ---
Student documentation: I have reviewed all interventions, assessments performed and documented by Joaquin GARCIA from [facility]. Student Medication Administration: For all medication-pass' in the time frame of 0600 to 1830, all medications were reviewed, dispensed, administered and documented per hospital policy by Joaquin GARCIA from [facility].
--- NOTE | 2020-11-12 18:38 | NUR ---
Patient in room [facility] 359. I have received report from HYACINTH Morales and had the opportunity to ask questions and assume patient care.
--- NOTE | 2020-11-12 18:51 | NUR ---
I have received report from HYACINTH Morales and rossy MCGREGOR student and had the opportunity to ask questions and assume patient care.
[2020-11-12 20:00] VITALS: BP 126/62
[2020-11-12] MEDS: Melatonin 3mg tablet PO SCH (20:48)
[2020-11-13] VITALS: BP 122/40
[2020-11-13] MEDS: LORazepam 1 MG tablet PO SCH ×4 (01:44→23:58)
--- NOTE | 2020-11-13 06:09 | NUR ---
Problems reprioritized. Patient report given, questions answered & plan of care reviewed with HYACINTH Espinosa.
--- NOTE | 2020-11-13 06:10 | NUR ---
Student documentation: I have reviewed and agree with all interventions, assessments performed and documented by [employer] student. I also agree with her report.
--- NOTE | 2020-11-13 06:21 | NUR ---
Patient in room [facility] 359. I have received report from Luis Fernando CLAROS and had the opportunity to ask questions and assume patient care.
--- NOTE | 2020-11-13 06:30 | NUR ---
Rec'd report from Alexandra Chiang RN, Relief Charge, and coordinating care w/ Francisca Cox RN ([facility]).
[2020-11-13 07:00] VITALS: BP 140/62
[2020-11-13] MEDS: sertraline 25mg tablet PO SCH (07:55)
[2020-11-13] MEDS: lactose-reduced food (Ensure Enlive) - 237ml bottle PO SCH ×4 (07:56→19:25)
[2020-11-13] MEDS: divalproex sod 125mg sprinkle cap PO SCH (07:56)
[2020-11-13] MEDS: OLANZapine 5mg rapidly disint. tablet PO SCH ×2 (07:56→20:14)
[2020-11-13] MEDS: donepezil 5mg tablet PO SCH (07:56)
[2020-11-13] MEDS: docusate sodium 100mg/10ml UD cup PO SCH ×2 (07:56→20:13)
[2020-11-13] MEDS: nystatin 15 GM powder TP SCH (08:00)
--- NOTE | 2020-11-13 18:08 | NUR ---
I have received report from HYACINTH Espinosa and had the opportunity to ask questions and assume patient care.
--- NOTE | 2020-11-13 18:09 | NUR ---
Problems reprioritized. Patient report given, questions answered & plan of care reviewed with Luis Fernando Hanley.
--- NOTE | 2020-11-13 18:10 | NUR ---
Patient in room [facility] 358. I have received report from HYACINTH Espinosa and had the opportunity to ask questions and assume patient care.
[2020-11-13 20:00] VITALS: BP 108/57
[2020-11-13] MEDS: Melatonin 3mg tablet PO SCH (20:14)
--- NOTE | 2020-11-14 06:32 | NUR ---
Student documentation: I have reviewed and agree with all interventions, assessments performed, and I agree with report given & documented by HYACINTH Villatoro .
--- NOTE | 2020-11-14 06:35 | NUR ---
Problems reprioritized. Patient report given, questions answered & plan of care reviewed with HYACINTH Romero.
--- NOTE | 2020-11-14 06:40 | NUR ---
Patient in room [facility] 359. I have received report from Luis Fernando RN/Shauna RN nursing manager and had the opportunity to ask questions and assume patient care.
[2020-11-14 07:45] VITALS: BP 115/58
[2020-11-14] MEDS: divalproex sod 125mg sprinkle cap PO SCH (10:05)
[2020-11-14] MEDS: sertraline 25mg tablet PO SCH (10:06)
[2020-11-14] MEDS: docusate sodium 100mg/10ml UD cup PO SCH ×2 (10:06→20:00)
[2020-11-14] MEDS: LORazepam 1 MG tablet PO SCH ×2 (10:06→16:03)
[2020-11-14] MEDS: donepezil 5mg tablet PO SCH (10:06)
[2020-11-14] MEDS: OLANZapine 5mg rapidly disint. tablet PO SCH ×2 (10:06→21:18)
[2020-11-14] MEDS: nystatin 15 GM powder TP SCH (10:07)
[2020-11-14 12:00] VITALS: BP 128/65
[2020-11-14] MEDS: lactose-reduced food (Ensure Enlive) - 237ml bottle PO SCH ×2 (16:01→18:00)
--- NOTE | 2020-11-14 18:36 | NUR ---
Problems reprioritized. Patient report given, questions answered & plan of care reviewed with Leena CLAROS.
[2020-11-14 19:00] VITALS: BP 112/55
[2020-11-14] MEDS: Melatonin 3mg tablet PO SCH (21:19)
[2020-11-15] MEDS: LORazepam 1 MG tablet PO SCH ×3 (00:16→17:35)
[2020-11-15 07:00] VITALS: BP 120/58
[2020-11-15] MEDS: divalproex sod 125mg sprinkle cap PO SCH (07:57)
[2020-11-15] MEDS: donepezil 5mg tablet PO SCH (07:57)
[2020-11-15] MEDS: sertraline 25mg tablet PO SCH (07:57)
[2020-11-15] MEDS: OLANZapine 5mg rapidly disint. tablet PO SCH ×2 (07:58→20:59)
[2020-11-15] MEDS: lactose-reduced food (Ensure Enlive) - 237ml bottle PO SCH ×3 (07:58→18:27)
[2020-11-15] MEDS: docusate sodium 100mg/10ml UD cup PO SCH ×2 (07:58→20:59)
[2020-11-15] MEDS: nystatin 15 GM powder TP SCH (07:58)
--- NOTE | 2020-11-15 08:51 | NUR ---
F/u 11/15: Pt is DNR w/ comfort care per EMR. LBM 11/13. Will continue to follow. Rec: 1) bowel care per rx Addendum: 11/15/20 at [address] Amended: Links added.
--- NOTE | 2020-11-15 18:16 | NUR ---
Problems reprioritized. Patient report given, questions answered & plan of care reviewed with Adriana CLAROS.
--- NOTE | 2020-11-15 18:30 | NUR ---
Patient in room DELMER 359. I have received report from Mariah CLAROS and had the opportunity to ask questions and assume patient care.
--- NOTE | 2020-11-15 19:39 | NUR ---
Patient in room DELMER 359. I have received report from Mariah CLAROS and had the opportunity to ask questions and assume patient care.
[2020-11-15 20:07] VITALS: BP 121/50
[2020-11-15] MEDS: Melatonin 3mg tablet PO SCH (20:59)
[2020-11-16] MEDS: LORazepam 1 MG tablet PO SCH ×4 (00:14→16:47)
--- NOTE | 2020-11-16 06:41 | NUR ---
Problems reprioritized. Patient report given, questions answered & plan of care reviewed with Heather CLAROS.
--- NOTE | 2020-11-16 06:43 | NUR ---
Problems reprioritized. Patient report given, questions answered & plan of care reviewed with Heather CLAROS.
--- NOTE | 2020-11-16 06:44 | NUR ---
Patient in room [facility] 359. I have received report from Adriana CLAROS and had the opportunity to ask questions and assume patient care.
[2020-11-16 08:00] VITALS: BP 118/74
[2020-11-16] MEDS: lactose-reduced food (Ensure Enlive) - 237ml bottle PO SCH ×4 (08:00→20:49)
[2020-11-16] MEDS: OLANZapine 5mg rapidly disint. tablet PO SCH ×2 (08:55→20:49)
[2020-11-16] MEDS: divalproex sod 125mg sprinkle cap PO SCH (08:55)
[2020-11-16] MEDS: docusate sodium 100mg/10ml UD cup PO SCH ×2 (08:55→20:49)
[2020-11-16] MEDS: donepezil 5mg tablet PO SCH (08:56)
[2020-11-16] MEDS: sertraline 25mg tablet PO SCH (08:56)
[2020-11-16] MEDS: nystatin 15 GM powder TP SCH (08:57)
--- NOTE | 2020-11-16 09:00 | NUR ---
phoned Diet[facility], they have no Ensure in stock at this time and will check with Assistant District Attorney to see if a substitute can be made. Will continue to monitor.
--- NOTE | 2020-11-16 12:00 | NUR ---
Dr Medley at bedside, notified of pt's cloudy urine per F/C, no new orders; continue to push fluids. Will continue to monitor.
--- NOTE | 2020-11-16 18:42 | NUR ---
Problems reprioritized. Patient report given, questions answered & plan of care reviewed with Adriana CLAROS.
[2020-11-16 20:00] VITALS: BP 98/45
[2020-11-16] MEDS: Melatonin 3mg tablet PO SCH (20:49)
[2020-11-17] MEDS: LORazepam 1 MG tablet PO SCH ×4 (00:12→23:28)
--- NOTE | 2020-11-17 06:46 | NUR ---
Problems reprioritized. Patient report given, questions answered & plan of care reviewed with Francisca CLAROS and Vicky CLAROS.
--- NOTE | 2020-11-17 06:49 | NUR ---
Patient in room [facility] 359. I have received report from Adriana CLAROS and had the opportunity to ask questions and assume patient care.
[2020-11-17 07:00] VITALS: BP 110/59
[2020-11-17] MEDS: divalproex sod 125mg sprinkle cap PO SCH (08:54)
[2020-11-17] MEDS: donepezil 5mg tablet PO SCH (08:54)
[2020-11-17] MEDS: sertraline 25mg tablet PO SCH (08:54)
[2020-11-17] MEDS: OLANZapine 5mg rapidly disint. tablet PO SCH ×2 (08:55→20:40)
[2020-11-17] MEDS: nystatin 15 GM powder TP SCH (08:56)
[2020-11-17] MEDS: lactose-reduced food (Ensure Enlive) - 237ml bottle PO SCH ×3 (08:56→18:19)
[2020-11-17] MEDS: docusate sodium 100mg/10ml UD cup PO SCH ×2 (09:05→20:40)
--- NOTE | 2020-11-17 18:12 | NUR ---
Problems reprioritized. Patient report given, questions answered & plan of care reviewed with Adriana CLAROS.
--- NOTE | 2020-11-17 18:38 | NUR ---
Patient in room [facility] 359. I have received report from Francisca CLAROS and Vicky CLAROS and had the opportunity to ask questions and assume patient care.
[2020-11-17 20:00] VITALS: BP 98/54
[2020-11-17] MEDS: Melatonin 3mg tablet PO SCH (20:40)
--- NOTE | 2020-11-18 06:44 | NUR ---
Patient in room [facility] 359. I have received report from Adriana CLAROS and had the opportunity to ask questions and assume patient care.
[2020-11-18 07:00] VITALS: BP 121/62
--- NOTE | 2020-11-18 07:01 | NUR ---
Problems reprioritized. Patient report given, questions answered & plan of care reviewed with Francisca CLAROS.
[2020-11-18] MEDS: lactose-reduced food (Ensure Enlive) - 237ml bottle PO SCH ×3 (08:00→18:00)
[2020-11-18] MEDS: divalproex sod 125mg sprinkle cap PO SCH (08:59)
[2020-11-18] MEDS: donepezil 5mg tablet PO SCH (09:00)
[2020-11-18] MEDS: sertraline 25mg tablet PO SCH (09:00)
[2020-11-18] MEDS: docusate sodium 100mg/10ml UD cup PO SCH ×2 (09:00→21:36)
[2020-11-18] MEDS: OLANZapine 5mg rapidly disint. tablet PO SCH ×2 (09:00→21:35)
[2020-11-18] MEDS: nystatin 15 GM powder TP SCH (09:00)
[2020-11-18] MEDS: LORazepam 1 MG tablet PO SCH ×2 (09:00→16:13)
[2020-11-18 18:00] VITALS: BP 106/50
--- NOTE | 2020-11-18 18:33 | NUR ---
Problems reprioritized. Patient report given, questions answered & plan of care reviewed with Dipika Bar RN.
--- NOTE | 2020-11-18 18:35 | NUR ---
Patient in room [facility] 359. I have received report from MARGOTH CLAROS and had the opportunity to ask questions and assume patient care.
[2020-11-18] MEDS: Melatonin 3mg tablet PO SCH (21:35)
[2020-11-19] MEDS: LORazepam 1 MG tablet PO SCH ×3 (00:50→16:20)
[2020-11-19] MEDS ORDERED: acetaminophen 120MG suppository, rectal RC PRN (02:40)
--- NOTE | 2020-11-19 06:05 | NUR ---
Patient in room [facility] 359. I have received report from Dipika Bar RN and had the opportunity to ask questions and assume patient care.
[2020-11-19 06:30] VITALS: BP 108/60
--- NOTE | 2020-11-19 06:33 | NUR ---
Problems reprioritized. Patient report given, questions answered & plan of care reviewed with JONA RN.
[2020-11-19] MEDS: lactose-reduced food (Ensure Enlive) - 237ml bottle PO SCH ×3 (08:00→18:26)
[2020-11-19] MEDS: donepezil 5mg tablet PO SCH (09:44)
[2020-11-19] MEDS: divalproex sod 125mg sprinkle cap PO SCH (09:44)
[2020-11-19] MEDS: sertraline 25mg tablet PO SCH (09:44)
[2020-11-19] MEDS: OLANZapine 5mg rapidly disint. tablet PO SCH ×2 (09:44→21:01)
[2020-11-19] MEDS: docusate sodium 100mg/10ml UD cup PO SCH ×2 (09:44→21:02)
[2020-11-19] MEDS: nystatin 15 GM powder TP SCH (09:47)
--- NOTE | 2020-11-19 18:25 | NUR ---
Problems reprioritized. Patient report given, questions answered & plan of care reviewed with Dipika Bar RN.
--- NOTE | 2020-11-19 18:30 | NUR ---
Patient in room [facility] 359. I have received report from JONA CLAROS and had the opportunity to ask questions and assume patient care.
[2020-11-19 20:00] VITALS: BP 103/60
[2020-11-19] MEDS: Melatonin 3mg tablet PO SCH (21:01)
[2020-11-20] MEDS: LORazepam 1 MG tablet PO SCH ×3 (00:41→15:55)
--- NOTE | 2020-11-20 06:25 | NUR ---
Patient in room [facility] 359. I have received report from Dipika Bar RN and had the opportunity to ask questions and assume patient care.
--- NOTE | 2020-11-20 06:27 | NUR ---
Problems reprioritized. Patient report given, questions answered & plan of care reviewed with JONA RN.
[2020-11-20 06:30] VITALS: BP 109/52
[2020-11-20] MEDS: lactose-reduced food (Ensure Enlive) - 237ml bottle PO SCH ×3 (08:00→18:47)
[2020-11-20] MEDS: donepezil 5mg tablet PO SCH (08:44)
[2020-11-20] MEDS: divalproex sod 125mg sprinkle cap PO SCH (08:44)
[2020-11-20] MEDS: OLANZapine 5mg rapidly disint. tablet PO SCH ×2 (08:44→21:23)
[2020-11-20] MEDS: sertraline 25mg tablet PO SCH (08:44)
[2020-11-20] MEDS: nystatin 15 GM powder TP SCH (08:44)
[2020-11-20] MEDS: docusate sodium 100mg/10ml UD cup PO SCH ×2 (08:44→21:23)
--- NOTE | 2020-11-20 18:05 | NUR ---
Problems reprioritized. Patient report given, questions answered & plan of care reviewed with Dipika Bar RN.
--- NOTE | 2020-11-20 18:30 | NUR ---
Patient in room [facility] 359. I have received report from JONA CLAROS and had the opportunity to ask questions and assume patient care.
[2020-11-20 20:00] VITALS: BP 112/49
[2020-11-20] MEDS: Melatonin 3mg tablet PO SCH (21:23)
[2020-11-21] MEDS: LORazepam 1 MG tablet PO SCH ×3 (00:46→16:14)
[2020-11-21] MEDS: morphine 10mg/0.5ml (conc. morphine) oral syringe PO PRN (04:54)
--- NOTE | 2020-11-21 04:56 | NUR ---
pt acting painful grimacing and thrashing. medicated with roxanol for this.
[2020-11-21 06:00] VITALS: BP 106/64
--- NOTE | 2020-11-21 06:30 | NUR ---
Problems reprioritized. Patient report given, questions answered & plan of care reviewed with HEIDY CLAROS.
--- NOTE | 2020-11-21 06:51 | NUR ---
Patient in room DELMER 359A. I have received report from ED WARD RN and had the opportunity to ask questions and assume patient care.
[2020-11-21] MEDS: lactose-reduced food (Ensure Enlive) - 237ml bottle PO SCH ×3 (08:00→18:42)
[2020-11-21] MEDS: OLANZapine 5mg rapidly disint. tablet PO SCH ×2 (08:00→19:39)
[2020-11-21] MEDS: donepezil 5mg tablet PO SCH (08:00)
[2020-11-21] MEDS: divalproex sod 125mg sprinkle cap PO SCH (08:00)
[2020-11-21] MEDS: docusate sodium 100mg/10ml UD cup PO SCH ×2 (08:00→19:33)
[2020-11-21] MEDS: sertraline 25mg tablet PO SCH (08:00)
[2020-11-21] MEDS: nystatin 15 GM powder TP SCH (09:52)
--- NOTE | 2020-11-21 10:58 | NUR ---
PREPARED PATIENT'S MED, PATIENT WOULD NOT WAKE UP ENOUGH TO SWALLOW MEDS SO I DID NOT GIVE MEDS
[2020-11-21 19:00] VITALS: BP 103/44
--- NOTE | 2020-11-21 19:01 | NUR ---
I have received report from Dennise CLAROS and had the opportunity to ask questions and assume patient care.
[2020-11-21] MEDS: Melatonin 3mg tablet PO SCH (19:39)
[2020-11-22] MEDS: LORazepam 1 MG tablet PO SCH ×3 (01:33→17:26)
--- NOTE | 2020-11-22 06:11 | NUR ---
Problems reprioritized. Patient report given, questions answered & plan of care reviewed with Dennise CLAROS.
--- NOTE | 2020-11-22 06:40 | NUR ---
Patient in room [facility]MER 359A. I have received report from HYACINTH REYES and had the opportunity to ask questions and assume patient care.
[2020-11-22] MEDS: lactose-reduced food (Ensure Enlive) - 237ml bottle PO SCH ×3 (08:00→18:45)
[2020-11-22] MEDS: divalproex sod 125mg sprinkle cap PO SCH (08:09)
[2020-11-22] MEDS: sertraline 25mg tablet PO SCH (08:09)
[2020-11-22] MEDS: OLANZapine 5mg rapidly disint. tablet PO SCH ×2 (08:09→20:27)
[2020-11-22] MEDS: docusate sodium 100mg/10ml UD cup PO SCH ×2 (08:10→20:27)
[2020-11-22] MEDS: nystatin 15 GM powder TP SCH (08:10)
[2020-11-22] MEDS: donepezil 5mg tablet PO SCH (08:10)
--- NOTE | 2020-11-22 16:15 | NUR ---
Reassessment: Pt remains DNR with comfort care per EMR. Last BM 11/20, receiving routine bowel care. Will continue to monitor. Rec: 1) bowel care per rx Addendum: 11/22/20 at [address] Amended: Links added. Addendum: 11/22/20 at [address] RD agrees w/ above internal investigator note.
--- NOTE | 2020-11-22 18:35 | NUR ---
I have received report from Dennise CLAROS and had the opportunity to ask questions and assume patient care.
--- NOTE | 2020-11-22 18:45 | NUR ---
Problems reprioritized. Patient report given, questions answered & plan of care reviewed with HYACINTH REYES.
[2020-11-22 20:00] VITALS: BP 107/50
[2020-11-22] MEDS: Melatonin 3mg tablet PO SCH (20:27)
[2020-11-23] MEDS: LORazepam 1 MG tablet PO SCH ×3 (00:52→16:48)
--- NOTE | 2020-11-23 06:26 | NUR ---
Problems reprioritized. Patient report given, questions answered & plan of care reviewed with Mariah CLAROS.
[2020-11-23] MEDS: sertraline 25mg tablet PO SCH (08:24)
[2020-11-23] MEDS: lactose-reduced food (Ensure Enlive) - 237ml bottle PO SCH ×3 (08:25→18:00)
[2020-11-23] MEDS: OLANZapine 5mg rapidly disint. tablet PO SCH ×2 (08:25→20:43)
[2020-11-23] MEDS: divalproex sod 125mg sprinkle cap PO SCH (08:25)
[2020-11-23] MEDS: donepezil 5mg tablet PO SCH (08:25)
[2020-11-23] MEDS: docusate sodium 100mg/10ml UD cup PO SCH ×2 (08:25→20:51)
[2020-11-23] MEDS: nystatin 15 GM powder TP SCH (08:26)
--- NOTE | 2020-11-23 12:30 | NUR ---
PAGER ID: [phone] MESSAGE: Diego Salinas 359A Pt. is on CC, but is visiting and concerned. Pt. congested with moist nonproductive cough. Rhonchi LS. Urine also is tai with sediment. Mariah [phone]
--- NOTE | 2020-11-23 18:25 | NUR ---
Problems reprioritized. Patient report given, questions answered & plan of care reviewed with Adriana CLAROS.
--- NOTE | 2020-11-23 19:05 | NUR ---
Patient in room DELMER 359. I have received report from Mariah CLAROS and had the opportunity to ask questions and assume patient care.
--- NOTE | 2020-11-23 19:05 | NUR ---
I have received report from Mariah CLAROS and had the opportunity to ask questions and assume patient care.
[2020-11-23 20:08] VITALS: BP 90/49
[2020-11-23] MEDS: Melatonin 3mg tablet PO SCH (20:43)
[2020-11-24] MEDS: LORazepam 1 MG tablet PO SCH ×3 (00:28→16:12)
--- NOTE | 2020-11-24 06:38 | NUR ---
Problems reprioritized. Patient report given, questions answered & plan of care reviewed with Mariah CLAROS.
--- NOTE | 2020-11-24 06:38 | NUR ---
Problems reprioritized. Patient report given, questions answered & plan of care reviewed with Mariah CLAROS.
[2020-11-24 06:51] VITALS: BP 95/48
[2020-11-24] MEDS: divalproex sod 125mg sprinkle cap PO SCH (07:17)
[2020-11-24] MEDS: OLANZapine 5mg rapidly disint. tablet PO SCH ×2 (07:17→20:11)
[2020-11-24] MEDS: donepezil 5mg tablet PO SCH (07:18)
[2020-11-24] MEDS: sertraline 25mg tablet PO SCH (07:19)
[2020-11-24] MEDS: morphine 10mg/0.5ml (conc. morphine) oral syringe PO PRN (07:25)
[2020-11-24] MEDS: nystatin 15 GM powder TP SCH (07:49)
--- NOTE | 2020-11-24 08:17 | NUR ---
PAGER ID: [phone] MESSAGE: MARYLU STEWART 359A PT DNR WITH COMFORT CARE. HE IS UNCOMFORTABLE WITH A PERSISTENT MOIST COUGH. PAIN MEDICATIONS ALREADY GIVEN. SA02 92-94% RA TRENDING DOWNWARDS. CXR? EBBE 2072
[2020-11-24] MEDS: lactose-reduced food (Ensure Enlive) - 237ml bottle PO SCH ×3 (08:25→18:03)
[2020-11-24] MEDS: docusate sodium 100mg/10ml UD cup PO SCH ×2 (08:25→20:11)
--- NOTE | 2020-11-24 18:02 | NUR ---
GAVE REPORT TO LUCILLE CLAROS.
--- NOTE | 2020-11-24 18:36 | NUR ---
Patient in room DELMER 359. I have received report from Mariah CLAROS and had the opportunity to ask questions and assume patient care.
[2020-11-24 20:00] VITALS: BP 95/50
[2020-11-24] MEDS: Melatonin 3mg tablet PO SCH (20:11)
[2020-11-25] MEDS: LORazepam 1 MG tablet PO SCH ×3 (00:57→16:24)
--- NOTE | 2020-11-25 06:42 | NUR ---
Problems reprioritized. Patient report given, questions answered & plan of care reviewed with Van CLAROS and Uriel CLAROS.
[2020-11-25 07:00] VITALS: BP 106/44
--- NOTE | 2020-11-25 07:02 | NUR ---
Patient in room [facility] 359. I have received report from HYACINTH Wright and had the opportunity to ask questions and assume patient care.
[2020-11-25] MEDS: lactose-reduced food (Ensure Enlive) - 237ml bottle PO SCH ×3 (08:00→18:37)
[2020-11-25] MEDS: docusate sodium 100mg/10ml UD cup PO SCH ×2 (08:00→19:40)
[2020-11-25] MEDS: sertraline 25mg tablet PO SCH (08:38)
[2020-11-25] MEDS: divalproex sod 125mg sprinkle cap PO SCH (08:38)
[2020-11-25] MEDS: donepezil 5mg tablet PO SCH (08:38)
[2020-11-25] MEDS: nystatin 15 GM powder TP SCH (08:39)
[2020-11-25] MEDS: OLANZapine 5mg rapidly disint. tablet PO SCH ×2 (08:40→21:43)
[2020-11-25 18:00] VITALS: BP 94/53
--- NOTE | 2020-11-25 18:12 | NUR ---
ORIENTEE documentation: I have reviewed and agree with all interventions, assessments performed and documented by HYACINTH GUERRIER. ORIENTEE Medication Administration: For this medication-pass time frame, all medication were reviewed, dispensed, administered and documented per hospital policy by HYACINTH GUERRIER.
--- NOTE | 2020-11-25 18:33 | NUR ---
Problems reprioritized. Patient report given, questions answered & plan of care reviewed with HYACINTH Caldera.
--- NOTE | 2020-11-25 18:51 | NUR ---
Patient in room [facility] 359. I have received report from ISRA CLAROS/PETRA CLAROS and had the opportunity to ask questions and assume patient care.
[2020-11-25] MEDS: Melatonin 3mg tablet PO SCH (21:44)
[2020-11-26] MEDS: LORazepam 1 MG tablet PO SCH ×4 (00:09→23:47)
--- NOTE | 2020-11-26 06:18 | NUR ---
Problems reprioritized. Patient report given, questions answered & plan of care reviewed with ISRA CLAROS/FAREED CLAROS.
--- NOTE | 2020-11-26 06:43 | NUR ---
Patient in room [facility] 359. I have received report from HYACINTH Caldera and had the opportunity to ask questions and assume patient care.
[2020-11-26 08:00] VITALS: BP 124/49
[2020-11-26] MEDS: sertraline 25mg tablet PO SCH (08:23)
[2020-11-26] MEDS: divalproex sod 125mg sprinkle cap PO SCH (08:23)
[2020-11-26] MEDS: donepezil 5mg tablet PO SCH (08:23)
[2020-11-26] MEDS: docusate sodium 100mg/10ml UD cup PO SCH ×2 (08:23→20:32)
[2020-11-26] MEDS: nystatin 15 GM powder TP SCH (08:27)
[2020-11-26] MEDS: OLANZapine 5mg rapidly disint. tablet PO SCH ×2 (08:27→20:32)
[2020-11-26] MEDS: lactose-reduced food (Ensure Enlive) - 237ml bottle PO SCH ×3 (08:35→18:02)
[2020-11-26 11:00] VITALS: BP 115/61
[2020-11-26 18:00] VITALS: BP 94/55
--- NOTE | 2020-11-26 18:17 | NUR ---
[place] documentation: I have reviewed and agree with all interventions, assessments performed and documented by HYACINTH Araujo. [place] Medication Administration: For this medication-pass time frame, all medication were reviewed, dispensed, administered and documented per hospital policy by HYACINTH Araujo .
--- NOTE | 2020-11-26 18:18 | NUR ---
Problems reprioritized. Patient report given, questions answered & plan of care reviewed with HYACINTH Caldera.
--- NOTE | 2020-11-26 18:22 | NUR ---
Patient in room [facility] 359. I have received report from ISRA CLAROS /FAREED CLAROS and had the opportunity to ask questions and assume patient care.
[2020-11-26] MEDS: Melatonin 3mg tablet PO SCH (20:32)
--- NOTE | 2020-11-27 06:11 | NUR ---
Problems reprioritized. Patient report given, questions answered & plan of care reviewed with MARGOTH CLAROS.
--- NOTE | 2020-11-27 06:40 | NUR ---
Patient in room [facility] 359. I have received report from Verenice CLAROS and had the opportunity to ask questions and assume patient care.
[2020-11-27 07:00] VITALS: BP 95/54
[2020-11-27] MEDS: LORazepam 1 MG tablet PO SCH ×2 (08:29→15:59)
[2020-11-27] MEDS: sertraline 25mg tablet PO SCH (08:29)
[2020-11-27] MEDS: donepezil 5mg tablet PO SCH (08:29)
[2020-11-27] MEDS: docusate sodium 100mg/10ml UD cup PO SCH ×2 (08:29→20:49)
[2020-11-27] MEDS: OLANZapine 5mg rapidly disint. tablet PO SCH ×2 (08:29→20:50)
[2020-11-27] MEDS: divalproex sod 125mg sprinkle cap PO SCH (08:29)
[2020-11-27] MEDS: lactose-reduced food (Ensure Enlive) - 237ml bottle PO SCH ×3 (08:30→17:59)
[2020-11-27] MEDS: nystatin 15 GM powder TP SCH (08:30)
--- NOTE | 2020-11-27 18:14 | NUR ---
Problems reprioritized. Patient report given, questions answered & plan of care reviewed with Prudence RN.
[2020-11-27 18:30] VITALS: BP 115/60
--- NOTE | 2020-11-27 18:33 | NUR ---
Patient in room [facility] 359. I have received report from JONA CLAROS and had the opportunity to ask questions and assume patient care.
[2020-11-27] MEDS: Melatonin 3mg tablet PO SCH (20:50)
[2020-11-28] MEDS: LORazepam 1 MG tablet PO SCH ×3 (00:39→15:51)
[2020-11-28] MEDS: morphine 10mg/0.5ml (conc. morphine) oral syringe PO PRN (03:25)
--- NOTE | 2020-11-28 06:02 | NUR ---
Problems reprioritized. Patient report given, questions answered & plan of care reviewed with MARGOTH CLAROS.
--- NOTE | 2020-11-28 06:10 | NUR ---
Patient in room [facility] 359. I have received report from Verenice CLAROS and had the opportunity to ask questions and assume patient care.
[2020-11-28] MEDS: OLANZapine 5mg rapidly disint. tablet PO SCH ×2 (06:51→20:19)
[2020-11-28] MEDS: divalproex sod 125mg sprinkle cap PO SCH (06:51)
[2020-11-28] MEDS: sertraline 25mg tablet PO SCH (06:52)
[2020-11-28] MEDS: donepezil 5mg tablet PO SCH (06:52)
[2020-11-28] MEDS: docusate sodium 100mg/10ml UD cup PO SCH ×2 (06:52→20:18)
[2020-11-28] MEDS: nystatin 15 GM powder TP SCH (06:54)
[2020-11-28 07:00] VITALS: BP 111/53
[2020-11-28] MEDS: lactose-reduced food (Ensure Enlive) - 237ml bottle PO SCH ×3 (08:11→18:02)
--- NOTE | 2020-11-28 12:36 | NUR ---
Reassessment: Pt remains DNR with comfort care per EMR. Last BM 11/27, receiving routine bowel care. Will continue to monitor. Rec: 1) bowel care per rx Addendum: 11/28/20 at [address] Amended: Links added.
--- NOTE | 2020-11-28 18:06 | NUR ---
Problems reprioritized. Patient report given, questions answered & plan of care reviewed with Jessica CLAROS.
--- NOTE | 2020-11-28 18:36 | NUR ---
I have received report from Francisca CLAROS and had the opportunity to ask questions and assume patient care.
[2020-11-28 19:00] VITALS: BP 102/46
[2020-11-28] MEDS: Melatonin 3mg tablet PO SCH (20:18)
[2020-11-29] MEDS: LORazepam 1 MG tablet PO SCH ×4 (02:35→22:49)
--- NOTE | 2020-11-29 06:17 | NUR ---
Patient in room [facility] 359. I have received report from Jessica CLAROS and had the opportunity to ask questions and assume patient care.
--- NOTE | 2020-11-29 06:27 | NUR ---
Problems reprioritized. Patient report given, questions answered & plan of care reviewed with Francisca CLAROS.
[2020-11-29] MEDS: OLANZapine 5mg rapidly disint. tablet PO SCH ×2 (07:51→20:16)
[2020-11-29] MEDS: lactose-reduced food (Ensure Enlive) - 237ml bottle PO SCH ×3 (07:51→18:02)
[2020-11-29] MEDS: divalproex sod 125mg sprinkle cap PO SCH (07:51)
[2020-11-29] MEDS: sertraline 25mg tablet PO SCH (07:51)
[2020-11-29] MEDS: donepezil 5mg tablet PO SCH (07:51)
[2020-11-29] MEDS: nystatin 15 GM powder TP SCH (07:51)
[2020-11-29] MEDS: docusate sodium 100mg/10ml UD cup PO SCH ×2 (07:51→20:15)
--- NOTE | 2020-11-29 18:32 | NUR ---
Problems reprioritized. Patient report given, questions answered & plan of care reviewed with Jessica CLAROS.
--- NOTE | 2020-11-29 18:50 | NUR ---
I have received report from Francisca CLAROS and had the opportunity to ask questions and assume patient care.
[2020-11-29 19:00] VITALS: BP 124/64
[2020-11-29 20:00] VITALS: BP 124/64
[2020-11-29] MEDS: Melatonin 3mg tablet PO SCH ×3 (20:15→22:28)
[2020-11-29] MEDS: morphine 10mg/0.5ml (conc. morphine) oral syringe PO PRN ×2 (20:37→23:56)
[2020-11-29] MEDS ORDERED: ondansetron 4mg rapidly disintigrating tab PO PRN (20:55)
--- NOTE | 2020-11-29 22:30 | NUR ---
on pt emar: pt was given dose of melatonin on 11/28/20. I pushed undo on the wrong date. pt was given melatonin tonight 11/29/20.
[2020-11-29] MEDS ORDERED: morphine 2 MG/ML inj. syringe IV PRN (23:25)
[2020-11-29] MEDS ORDERED: LORazepam 2 mg/ml vial IV PRN (23:25)
[2020-11-30] MEDS ORDERED: LORazepam 2 mg/ml vial IV PRN
[2020-11-30] MEDS: morphine 2 MG/ML inj. syringe IV PRN (00:07)
[2020-11-30] MEDS ORDERED: HYDROmorphone 1 mg/ml syringe IV PRN (00:40)
--- NOTE | 2020-11-30 02:24 | NUR ---
patient was given his night time medications with yogurt tonight and the patient began to cough. The patient then began to vomit a large amount. The patient was coughing and aspirated on the vomit. the patient was suctioned and cleaned up. the patient was restless and agitated. patient was given po Ativan as scheduled and roxinol. patient was still in distress after the medications. The patient was desatting. a nasal cannula was put on the patient for comfort. MD was called. A PIV was ordered so that the patient could get IV medications. IV morphine and Ativan were ordered and given to the patient. patient was still distressed and would desat into the 40s. a nonrebreather was put on the patient for comfort because the patient was very anxious. MD was called again and adjusted IV morphine and IV Ativan so that the medications could be given more frequently. patients was called and made aware of the patient condition and is now at the patients bedside. MD was called again and an order for IV Dilaudid which was given to make the patient more comfortable. patient is currently comfortable with family at bedside
[2020-11-30] MEDS: LORazepam 2 mg/ml vial IV PRN ×3 (02:41→21:22)
--- NOTE | 2020-11-30 06:34 | NUR ---
Patient in room [facility] 359. I have received report from HYACINTH Lopez and had the opportunity to ask questions and assume patient care.
--- NOTE | 2020-11-30 06:36 | NUR ---
Problems reprioritized. Patient report given, questions answered & plan of care reviewed with Will CLAROS and Van CLAROS.
[2020-11-30 07:00] VITALS: BP 90/45
[2020-11-30] MEDS: OLANZapine 5mg rapidly disint. tablet PO SCH ×2 (08:00→19:51)
[2020-11-30] MEDS: donepezil 5mg tablet PO SCH (08:00)
[2020-11-30] MEDS: sertraline 25mg tablet PO SCH (08:00)
[2020-11-30] MEDS: nystatin 15 GM powder TP SCH (08:00)
[2020-11-30] MEDS: docusate sodium 100mg/10ml UD cup PO SCH ×2 (08:00→19:51)
[2020-11-30] MEDS: lactose-reduced food (Ensure Enlive) - 237ml bottle PO SCH ×3 (08:00→18:00)
[2020-11-30] MEDS: divalproex sod 125mg sprinkle cap PO SCH (08:00)
[2020-11-30] MEDS: morphine 10mg/0.5ml (conc. morphine) oral syringe PO PRN ×3 (10:45→20:36)
--- NOTE | 2020-11-30 18:40 | NUR ---
I have received report from Van CLAROS and had the opportunity to ask questions and assume patient care.
--- NOTE | 2020-11-30 18:44 | NUR ---
Problems reprioritized. Patient report given, questions answered & plan of care reviewed with HYACINTH Lopez.
[2020-11-30 19:00] VITALS: BP 105/52
[2020-11-30] MEDS: Melatonin 3mg tablet PO SCH (19:51)
[2020-12-01] MEDS: LORazepam 2 mg/ml vial IV PRN ×5 (00:31→14:01)
--- NOTE | 2020-12-01 06:22 | NUR ---
Patient in room [facility] 359. I have received report from HYACINTH Lopez and had the opportunity to ask questions and assume patient care.
--- NOTE | 2020-12-01 06:30 | NUR ---
Received shift report from Rinku Relief central sterile technician, and trice Araujo RN obtained hand off report from HYACINTH Lopez. Pt w/o apparent distress.
--- NOTE | 2020-12-01 06:34 | NUR ---
Problems reprioritized. Patient report given, questions answered & plan of care reviewed with Van CLAROS.
[2020-12-01 07:00] VITALS: BP 111/57
[2020-12-01] MEDS: morphine 10mg/0.5ml (conc. morphine) oral syringe PO PRN (07:49)
[2020-12-01] MEDS: OLANZapine 5mg rapidly disint. tablet PO SCH (08:00)
[2020-12-01] MEDS: sertraline 25mg tablet PO SCH (08:00)
[2020-12-01] MEDS: docusate sodium 100mg/10ml UD cup PO SCH ×2 (08:00→20:00)
[2020-12-01] MEDS: lactose-reduced food (Ensure Enlive) - 237ml bottle PO SCH ×3 (08:00→14:00)
[2020-12-01] MEDS: divalproex sod 125mg sprinkle cap PO SCH (08:00)
[2020-12-01] MEDS: donepezil 5mg tablet PO SCH (08:00)
[2020-12-01] MEDS: nystatin 15 GM powder TP SCH (08:07)
[2020-12-01] MEDS ORDERED: LORazepam 0.5 MG tablet PO PRN (11:55)
--- NOTE | 2020-12-01 19:18 | NUR ---
Problems reprioritized. Patient report given, questions answered & plan of care reviewed with HYACINTH Haines.
--- NOTE | 2020-12-01 19:19 | NUR ---
Patient in room [facility] 359. I have received report from FAREED CLAROS and had the opportunity to ask questions and assume patient care.
[2020-12-01 20:00] VITALS: BP 93/62
[2020-12-01] MEDS ORDERED: olanzapine 10mg tablet PO SCH (21:00)
--- NOTE | 2020-12-02 06:44 | NUR ---
Problems reprioritized. Patient report given, questions answered & plan of care reviewed with LINDSEY CLAROS.
--- NOTE | 2020-12-02 06:45 | NUR ---
Patient in room [facility] 359. I have received report from Dipika Bar Rn and had the opportunity to ask questions and assume patient care.
[2020-12-02] MEDS ORDERED: OLANZapine 2.5MG tablet PO SCH (08:00)
[2020-12-02] MEDS: lactose-reduced food (Ensure Enlive) - 237ml bottle PO SCH ×3 (08:00→19:47)
[2020-12-02] MEDS: nystatin 15 GM powder TP SCH (08:00)
[2020-12-02] MEDS: docusate sodium 100mg/10ml UD cup PO SCH ×2 (08:00→19:47)
[2020-12-02] MEDS ORDERED: sertraline 25mg tablet PO SCH (08:00)
[2020-12-02] MEDS ORDERED: divalproex sod 125mg sprinkle cap PO SCH (08:00)
[2020-12-02] MEDS: LORazepam 2 mg/ml vial IV PRN (14:57)
--- NOTE | 2020-12-02 18:21 | NUR ---
Problems reprioritized. Patient report given, questions answered & plan of care reviewed with Dipika Bar RN.
--- NOTE | 2020-12-02 18:30 | NUR ---
Patient in room [facility] 359. I have received report from LINDSEY CLAROS and had the opportunity to ask questions and assume patient care.
[2020-12-02 20:00] VITALS: BP 108/57
--- NOTE | 2020-12-03 06:30 | NUR ---
Problems reprioritized. Patient report given, questions answered & plan of care reviewed with SANDRA CLAROS.
[2020-12-03] MEDS: morphine 2 MG/ML inj. syringe IV PRN ×3 (07:09→20:54)
[2020-12-03 08:00] VITALS: BP 122/51
[2020-12-03] MEDS: nystatin 15 GM powder TP SCH (08:00)
[2020-12-03] MEDS: docusate sodium 100mg/10ml UD cup PO SCH ×2 (08:00→20:00)
[2020-12-03] MEDS: lactose-reduced food (Ensure Enlive) - 237ml bottle PO SCH ×3 (08:00→18:00)
[2020-12-03] MEDS: LORazepam 2 mg/ml vial IV PRN ×2 (14:14→23:27)
[2020-12-03] MEDS: morphine 10mg/0.5ml (conc. morphine) oral syringe PO PRN (16:59)
--- NOTE | 2020-12-03 18:42 | NUR ---
Problems reprioritized. Patient report given, questions answered & plan of care reviewed with Zaki CLAROS.
--- NOTE | 2020-12-03 18:45 | NUR ---
Patient in room DELMER 359. I have received report from SANDRA CLAROS and had the opportunity to ask questions and assume patient care.
[2020-12-03 20:00] VITALS: BP 88/61
[2020-12-04] MEDS: morphine 2 MG/ML inj. syringe IV PRN (03:20)
[2020-12-04] MEDS: LORazepam 2 mg/ml vial IV PRN ×2 (05:31→09:57)
--- NOTE | 2020-12-04 06:25 | NUR ---
Problems reprioritized. Patient report given, questions answered & plan of care reviewed with SANDRA CLAROS.
--- NOTE | 2020-12-04 06:55 | NUR ---
Patient in room [facility] 359. I have received report from HYACINTH Haines and had the opportunity to ask questions and assume patient care.
[2020-12-04 07:04] VITALS: BP 146/78
[2020-12-04] MEDS: morphine 10mg/0.5ml (conc. morphine) oral syringe PO PRN ×2 (07:13→11:57)
[2020-12-04] MEDS: nystatin 15 GM powder TP SCH (08:00)
[2020-12-04] MEDS: docusate sodium 100mg/10ml UD cup PO SCH (08:00)
[2020-12-04] MEDS: lactose-reduced food (Ensure Enlive) - 237ml bottle PO SCH ×2 (08:00→13:00)
--- NOTE | 2020-12-04 12:39 | NUR ---
Family at bedside. While checking on them, noted patient's respirations slowed then ceased. See expiration note.
--- NOTE | 2020-12-04 13:00 | NUR ---
RN IS TO DOCUMENT YES TO ALL APPLICABLE AREAS Pronouncement of : 1. Time Physician Notified:1245 2. Date of :12/04/2020 3. Time of : 1240 4. DNR/Withdraw life support documented:yes 5. Monitor strip has been placed on chart:yes 6. Assessment process is of one-minute duration and includes following criteria: a) Patient is unresponsive to all stimuli: yes b) Pupils fixed and non-reactive:yes c) Auscultation of precordium reveals absence of heart tones:yes d) Auscultation of lungs reveals absence of breath sounds:yes e) Absence of blood pressure / all vital signs:yes f) QRS complexes are not present on monitor / EKG strip:yes g) Pacer spikes without capture:yes 4. Comments:
--- NOTE | 2020-12-04 18:21 | NUR ---
Pt was pronounced at 1240 with family at bedside. was notified. Called out to [facility] Ref # [id number]. Remaining were picked up by home.
== END 2020-12-04 15:15 | disposition expired | DRG 689 ==
LOC: ER 20:14 → ED HOLD 08-22 16:21 → EDBEDREQ 08-23 11:16 → SUR 3N 08-23 13:10 → OBSVTOIN 08-26 09:30 → SUR 3N 08-27 02:04 → ORTHO 4S 09-09 14:22 → SUR 3N 09-21 16:15 → PCU 3S 10-08 05:43 → SUR 3N 10-09 12:45 → ORTHO 4S 10-28 18:15 → SUR 3N 11-02 14:50
PROVIDERS: ADMIT Internal Medicine; ATTEND Internal Medicine
PROC: 5A0935A Assistance with Respiratory Ventilation, Less than 24 Consecutive Hours, High Flow/Velocity Cannula (ICD-10-PCS; principal; 2020-10-08)
DX: N39.0 Urinary tract infection, site not specified (principal); U07.1 COVID-19; J69.0 Pneumonitis due to inhalation of food and vomit; J12.82 Pneumonia due to coronavirus disease 2019; G10 Huntington's disease; F02.81 Dementia in other diseases classified elsewhere, unspecified severity, with behavioral disturbance; R31.9 Hematuria, unspecified; Z79.899 Other long term (current) drug therapy; Z91.83 Wandering in diseases classified elsewhere
CPT/HCPCS: 36415; 36600; 71045; 74230; 76937; 80048; 80053; 80305; 81001; 82803; 82948; 83605; 83615; 83735; 83880; 84100; 84145; 84443; 84484; 85007; 85018; 85025; 85379; 85610; 85730; 86140; 87040; 87081; 87635; 90471; 90472; 90732; 92508; 92616; 93005; 93306; 94760; 96361; 96365; 96366; 96372; 96375; 97110; 97112; 97116; 97161; 97530; 97535; 99285; G0378; J0696; J1170; J1200; J1630; J1650; J1940; J2060; J2250; J2270; J2405; J2543; J7030; J7040; J7060; J7070; J8540; Q2039